=== PATIENT | female | born 1995 | race Caucasian/White ===

== ENCOUNTER 2018-02-22 21:15 | Emergency (ER) | payer SELFPAY ==
[~2018-02-22] VITALS: Ht 167.6 cm; Wt 59.0 kg
[2018-02-22] MEDS ORDERED: DOXY40CP PO (23:33)
[2018-02-22 23:43] LABS: BILIRUBIN,URINE NEGATIVE (NEGATIVE); CLARITY,URINE CLEAR; COLOR,URINE YELLOW; GLUCOSE, URINE (UA) NEGATIVE (NEGATIVE); KETONES,URINE NEGATIVE (NEGATIVE); LEUKOCYTE ESTERASE ,URINE NEGATIVE (NEGATIVE); NITRITE,URINE NEGATIVE (NEGATIVE); PH,URINE 6.5 (5-9); PROTEIN,URINE NEGATIVE (NEGATIVE); UROBILINOGEN,URINE NORMAL (NORMAL)
[2018-02-22 23:58] LABS: BASOPHILS % (AUTO) 0 % (0-10); EOSINOPHILS # (AUTO) 0.1 10^3/uL (0.0-0.3); EOSINOPHILS % (AUTO) 1 % (0-10); HEMATOCRIT 39 % (35-52); LYMPHOCYTES # (AUTO) 3.1 X 10^3 (1.0-4.0); LYMPHOCYTES % (AUTO) 34 % (12-44); MEAN CORPUSCULAR HEMOGLOBIN 29 PG (25-34); MEAN CORPUSCULAR HGB CONC 33 G/DL (32-36); MEAN CORPUSCULAR VOLUME 87 FL (80-99); MEAN PLATELET VOLUME 9.8 FL (7.4-10.4); MONOCYTES # (AUTO) 0.5 X 10^3 (0.0-1.0); MONOCYTES % (AUTO) 6 % (0-12); NEUTROPHILS # (AUTO) 5.2 X 10^3 (1.8-7.8); NEUTROPHILS % (AUTO) 58 % (42-75); PLATELET COUNT 281 10^3/uL (130-400); RED BLOOD COUNT 4.53 10^6/uL (4.35-5.85); RED CELL DISTRIBUTION WIDTH 12.7 % (10.0-14.5)
[2018-02-23 00:06] LABS: BACTERIA,URINE FEW /HPF; SQUAMOUS EPITHELIAL CELL,UR 0-2 /HPF
[2018-02-23 00:20] LABS: ALANINE AMINOTRANSFERASE 13 U/L (0-55); ALBUMIN 4.6 GM/DL (3.2-4.5); ALKALINE PHOSPHATASE 72 U/L (40-136); AMYLASE 51 U/L (25-125); BILIRUBIN,TOTAL 0.3 MG/DL (0.1-1.0); BUN/CREATININE RATIO 20; CALCIUM 9.7 MG/DL (8.5-10.1); CARBON DIOXIDE 21 MMOL/L (21-32); CHLORIDE 110 MMOL/L (98-107); CREATININE SERUM 0.81 MG/DL (0.60-1.30); GFR ESTIMATED > 60; GLUCOSE 92 MG/DL (70-105); LIPASE 28 U/L (8-78); SODIUM 144 MMOL/L (135-145)
[2018-02-23] MEDS ORDERED: LACTATED RINGERS 1,000 ML IV ONE (00:24)
[2018-02-23] MEDS ORDERED: KETOROLAC 30 MG/ML VIAL IVP STA (00:24)
[2018-02-23] MEDS ORDERED: ONDANSETRON 4 MG/2 ML (SDV) Z0FRAN IVP ONE (00:30)
[2018-02-23] MEDS ORDERED: HYOSCYAMINE 0.125 MG (LEVSIN) TAB SL ONE (00:30)
[2018-02-23] MEDS ORDERED: RX-HYOSCYAMINE 0.125 MG SL (LEVSIN) PPK#6 SL STA ×2 (01:38→01:45)
[2018-02-23] MEDS ORDERED: RX-ONDANSETRON 4 MG ODT (ZOFRAN) PPK #4 PO STA ×2 (01:38→01:45)
[2018-02-23] MEDS ORDERED: DICY10CA12 PO (01:44)
[2018-02-23] MEDS ORDERED: HYOS0.1283 SL (01:44)
[2018-02-23] MEDS ORDERED: PANT40TA2 PO (01:44)
[2018-02-23] MEDS ORDERED: ONDA4TAB11 PO (01:44)
--- NOTE | 2018-02-23 01:45 | ED Abdominal Pain ---
General Chief Complaint: Abdominal/GI Problems Stated Complaint: ABD PAIN Nursing Triage Note: mid abdominal pain (burning) x4hrs Sepsis Screen: No Definite Risk Allergies and Home Medications Allergies Coded Allergies: shrimp (Verified Allergy, Unknown, 02/22/18) Past Pfbsdje-Qjdjdh-Fbwmyq Hx Patient Social History Alcohol Use: Denies Use Recreational Drug Use: No Smoking Status: Never a Smoker 2nd Hand Smoke Exposure: No Recent Foreign Travel: No Contact w/Someone Who Travel: No Recent Infectious Disease Expo: No Recent Hopitalizations: No Immunizations Up To Date Tetanus Booster (TDap): Unknown Seasonal Allergies Seasonal Allergies: No Past Medical History Surgeries: Yes Abdominal Respiratory: No Cardiac: No Neurological: No : No Female Reproductive Disorders: Endometriosis Genitourinary: No Gastrointestinal: Yes Abdominal Hernia Musculoskeletal: No Endocrine: No HEENT: No Cancer: No Psychosocial: No Integumentary: No Blood Disorders: No Physical Exam Vital Signs Vital Signs - First Documented 02/22/18 23:27 Temp 98.2 Pulse 71 Resp 16 B/P (MAP) 141/87 (105) Pulse Ox 100 O2 Delivery Room Air Capillary Refill : Less Than 3 Seconds Height/Weight/BMI Height: 5'6.00" Weight: 130lbs. oz. 58.789796zg; BMI Method:Stated Progress/Results/Core Measures Results/Orders Lab Results Laboratory Tests Test 02/22/18 21:23 02/22/18 23:50 Range/Units Urine Color YELLOW Urine Clarity CLEAR Urine pH 6.5 5-9 Urine Specific [place] 1.015 L 1.016-1.022 Urine Protein NEGATIVE NEGATIVE Urine Glucose (UA) NEGATIVE NEGATIVE Urine Ketones NEGATIVE NEGATIVE Urine Nitrite NEGATIVE NEGATIVE Urine Bilirubin NEGATIVE NEGATIVE Urine Urobilinogen NORMAL NORMAL MG/DL Urine Leukocyte Esterase NEGATIVE NEGATIVE Urine RBC (Auto) NEGATIVE NEGATIVE Urine RBC NONE /HPF Urine WBC NONE /HPF Urine Squamous Epithelial Cells 0-2 /HPF Urine Crystals NONE /LPF Urine Bacteria FEW H /HPF Urine Casts NONE /LPF Urine Mucus NEGATIVE /LPF Urine Culture Indicated NO White Blood Count 9.0 4.3-11.0 10^3/uL Red Blood Count 4.53 4.35-5.85 10^6/uL Hemoglobin 13.0 11.5-16.0 G/DL Hematocrit 39 35-52 % Mean Corpuscular Volume 87 80-99 FL Mean Corpuscular Hemoglobin 29 25-34 PG Mean Corpuscular Hemoglobin Concent 33 32-36 G/DL Red Cell Distribution Width 12.7 10.0-14.5 % Platelet Count 281 130-400 10^3/uL Mean Platelet Volume 9.8 7.4-10.4 FL Neutrophils (%) (Auto) 58 42-75 % Lymphocytes (%) (Auto) 34 12-44 % Monocytes (%) (Auto) 6 0-12 % Eosinophils (%) (Auto) 1 0-10 % Basophils (%) (Auto) 0 0-10 % Neutrophils # (Auto) 5.2 1.8-7.8 X 10^3 Lymphocytes # (Auto) 3.1 1.0-4.0 X 10^3 Monocytes # (Auto) 0.5 0.0-1.0 X 10^3 Eosinophils # (Auto) 0.1 0.0-0.3 10^3/uL Basophils # (Auto) 0.0 0.0-0.1 10^3/uL Sodium Level 144 135-145 MMOL/L Potassium Level 4.0 3.6-5.0 MMOL/L Chloride Level 110 H 98-107 MMOL/L Carbon Dioxide Level 21 21-32 MMOL/L Anion Gap 13 5-14 MMOL/L Blood Urea Nitrogen 16 7-18 MG/DL Creatinine 0.81 0.60-1.30 MG/DL Estimat Glomerular Filtration Rate > 60 BUN/Creatinine Ratio 20 Glucose Level 92 70-105 MG/DL Calcium Level 9.7 8.5-10.1 MG/DL Corrected Calcium 8.5-10.1 MG/DL Total Bilirubin 0.3 0.1-1.0 MG/DL Aspartate Amino Transf (AST/SGOT) 15 5-34 U/L Alanine Aminotransferase (ALT/SGPT) 13 0-55 U/L Alkaline Phosphatase 72 40-136 U/L Total Protein 7.0 6.4-8.2 GM/DL Albumin 4.6 H 3.2-4.5 GM/DL Amylase Level 51 25-125 U/L Lipase 28 8-78 U/L My Orders Orders - AIMEE LAGUNA DO Saline Lock/Iv-Start (02/22/18 23:33) Urine Bedside (02/22/18 23:33) Amylase (02/22/18 23:33) Cbc With Automated Diff (02/22/18 23:33) Comprehensive Metabolic Panel (02/22/18 23:33) Lipase (02/22/18 23:33) Ua Culture If Indicated (02/22/18 23:33) Ct Abdomen/Pelvis W (02/23/18 00:23) Acute Abd Series (02/23/18 00:23) Saline Lock/Iv-Start (02/23/18 00:24) Lactated Ringers (Lr 1000 Ml Iv Solution (02/23/18 00:24) Ondansetron Injection (Zofran Injectio (02/23/18 00:30) Hyoscyamine Sl Tablet (Levsin Sl Tablet) (02/23/18 00:30) Ketorolac Injection (Toradol Injection) (02/23/18 00:24) Rx-Hyoscyamine Tab (Rx-Levsin Sl) (02/23/18 01:38) Rx-Ondansetron Po (Rx-Zofran Po) (02/23/18 01:38) Medications Given in ED Current Medications Medications Dose Ordered Sig/Anjali Route Start Time Stop Time Status Last Admin Dose Admin Hyoscyamine Sulfate 0.25 mg ONCE ONCE SL 02/23/18 00:30 02/23/18 00:31 DC 02/23/18 00:29 0.25 MG Lactated Ringer's 1,000 ml @ 0 mls/hr Q0M ONCE IV 02/23/18 00:24 02/23/18 00:25 DC 02/23/18 00:29 0 MLS/HR Ondansetron HCl 4 mg ONCE ONCE IVP 02/23/18 00:30 02/23/18 00:31 DC 02/23/18 00:29 4 MG Vital Signs/I&O 02/22/18 23:27 Temp 98.2 Pulse 71 Resp 16 B/P (MAP) 141/87 (105) Pulse Ox 100 O2 Delivery Room Air Blood Pressure Mean: 105 Urine -Bedside: Negative Departure Impression Primary Impression: abdominal pain Disposition: HOME, SELF-CARE Departure-Patient Inst. Referrals: DEEPALI LAMB APRN (PCP/Family) Primary Care Physician Patient Instructions: Acute Abdomen (Belly Pain), Adult (DC) Add. Discharge Instructions: CLEAR LIQUIDS--WATER, BROTH, JELLO, GATORADE WHEN YOUR PAIN IS BETTER, ADD BRATS DIET TO CLEAR LIQUIDS--BANANAS, RICE, APPLESAUCE, TOAST, SALTINES TAKE MIRALAX EVERY 2-3 HOURS UNTIL YOUR STOOLS ARE CLEAR AND WATERY, THEN TAKE ONCE A DAY FOLLOW UP WITH YOUR DR THIS WEEK FOR FURTHER CARE RETURN TO ER IF WORSE All discharge instructions reviewed with patient and/or family. Voiced understanding. Scripts Dicyclomine HCl (Dicyclomine HCl) 10 Mg Capsule 10 MG PO Q6H for Abdominal Pain, #20 CAP Prov: AIMEE LAGUNA DO 02/23/18 Hyoscyamine Sulfate (Levsin-Sl) 0.125 Mg Tab.subl 1-2 TAB SL Q4H for Abdominal Pain, #15 TAB Prov: AIMEE LAGUNA DO 02/23/18 Ondansetron (Ondansetron Odt) 4 Mg Tab.rapdis 4 MG PO Q4H for Nausea/Vomiting, #10 TAB Prov: AIMEE LAGUNA DO 02/23/18 Pantoprazole Sodium (Protonix) 40 Mg Tablet. 40 MG PO DAILY, #15 TAB Prov: AIMEE LAGUNA DO 02/23/18 AIMEE LAGUNA DO Feb 23, 2018 01:45
[2018-02-23 01:52] VITALS: BP 100/66
[2018-02-23] MEDS ORDERED: NS 100 ML (IVPB) BAG IV ONE (04:30)
[2018-02-23] MEDS ORDERED: IOHEXOL 350 MG/ML 100 ML (OMNIPAQUE 350) VIAL IV ONE (04:30)
--- NOTE | 2018-02-23 07:01 | Diagnostic Imaging Report ---
PROCEDURE: CT abdomen and pelvis with contrast. TECHNIQUE: Multiple contiguous axial images were obtained through the abdomen and pelvis after administration of intravenous contrast. INDICATION: Abdominal pain. FINDINGS: The heart size is normal. Lung bases are clear. The liver is normal in size. There is a focal area of hyperenhancement in the left lobe of the liver likely hemangioma. There is no biliary ductal dilatation. Gallbladder is unremarkable. Spleen is normal. The pancreas, adrenal glands and kidneys are unremarkable. The aorta is nonaneurysmal. Bowel gas pattern is nonspecific. There is no free air. There is no ascites. No focal inflammatory changes. The bladder is unremarkable. There is no pelvic mass, adenopathy or free fluid. The osseous structures are unremarkable. IMPRESSION: Focal area of hyperenhancement and flash filling in the left lobe of the liver compatible with hemangioma. No other acute abnormality in the abdomen or pelvis. Dictated by: Dictated on workstation # [id number]
--- NOTE | 2018-02-23 07:39 | Diagnostic Imaging Report ---
INDICATION: Abdominal pain FINDINGS: The heart size is normal. Lungs are clear. There is no pleural effusion or pneumothorax. Bowel gas pattern is nonspecific. There is no free air. There are no abnormal abdominal calcifications. IMPRESSION: No acute cardiopulmonary abnormality Nonspecific bowel gas pattern Dictated by: Dictated on workstation # [id number]
== END 2018-02-23 01:53 | disposition home or self-care (01) ==
LOC: ER 21:17
DX: R10.9 Unspecified abdominal pain (principal); Z87.448 Personal history of other diseases of urinary system; Z87.19 Personal history of other diseases of the digestive system
CPT/HCPCS: 36415; 74022; 74177; 80053; 81000; 82150; 83690; 84703; 85025

== ENCOUNTER 2019-02-25 11:00 | Emergency (ER) | payer SELFPAY ==
[~2019-02-25] VITALS: Ht 167.7 cm; Wt 56.8 kg
[~2019-02-25 11:00] MED LIST: DICY10CA12 PO; DOXY40CP PO; HYOS0.1283 SL; ONDA4TAB11 PO; PANT40TA2 PO
--- NOTE | 2019-02-25 12:08 | ED Abdominal Pain ---
General Stated Complaint: 5 WKS PREG - CRAMPING / BLEEDING Source of Information: Patient, Family Exam Limitations: No Limitations History of Present Illness Date Seen by Provider: Feb 25, 2019 Time Seen by Provider: 12:04 Initial Comments This 23-year-old female presents with vaginal bleeding and cramping right lower quadrant pain. The patient has had a miscarriage approximately 6 weeks ago. The patient had a quantitative hCG done on which she states was 34 done at [facility]. Patient denies associated dysuria, frequency, flank pain, passing tissue, nausea, vomiting, diarrhea, shortness of breath or chest pain, headache stiff neck or photophobia. Allergies and Home Medications Allergies Coded Allergies: shrimp (Verified Allergy, Unknown, 02/22/18) Home Medications Dicyclomine HCl 10 Mg Capsule, 10 MG PO Q6H Prescribed by: AIMEE LAGUNA on 02/23/18 0144 Hydrocodone/Acetaminophen 1 Each Tablet, 1-2 EACH PO Q6H PRN for PAIN-MODERATE Prescribed by: KAELYN GARZA MD on 02/25/19 1344 Hyoscyamine Sulfate 0.125 Mg Tab.subl, 1-2 TAB SL Q4H Prescribed by: AIMEE LAGUNA on 02/23/18 0144 Ondansetron 4 Mg Tab.rapdis, 4 MG PO Q4H Prescribed by: AIMEE LAGUNA on 02/23/18 0144 Ondansetron 4 Mg Tab.rapdis, 4 MG PO Q4H Prescribed by: KAELYN GARZA MD on 02/25/19 1344 Pantoprazole Sodium 40 Mg Tablet.dr, 40 MG PO DAILY Prescribed by: AIMEE LAGUNA on 02/23/18 014 Patient Home Medication List Home Medication List Reviewed: Yes Review of Systems Review of Systems Constitutional: no symptoms reported; No chills, No fever EENTM: No Symptoms Reported Respiratory: No Symptoms Reported; Denies Cough Cardiovascular: No Symptoms Reported; Denies Chest Pain Gastrointestinal: See HPI, Abdominal Pain; Denies Nausea (right lower quadrant), Denies Vomiting Genitourinary: See HPI, Other (vaginal bleeding) Musculoskeletal: no symptoms reported Skin: no symptoms reported Psychiatric/Neurological: No Symptoms Reported Endocrine: No Symptoms Reported Hematologic/Lymphatic: No Symptoms Reported Past Hgpkwgv-Vuflmb-Niwufh Hx Past Med/Social Hx: Reviewed Nursing Past Med/Soc Hx Patient Social History 2nd Hand Smoke Exposure: No Recent Foreign Travel: No Contact w/Someone Who Travel: No Recent Hopitalizations: No Immunizations Up To Date Tetanus Booster (TDap): Unknown Seasonal Allergies Seasonal Allergies: No Past Medical History Surgeries: Yes Abdominal Respiratory: No Cardiac: No Neurological: No Female Reproductive Disorders: Endometriosis Genitourinary: No Gastrointestinal: Yes Abdominal Hernia Musculoskeletal: No Endocrine: No HEENT: No Cancer: No Psychosocial: No Integumentary: No Blood Disorders: No Physical Exam Vital Signs Vital Signs - First Documented 02/25/19 11:55 Temp 37.0 Pulse 75 Resp 20 B/P (MAP) 124/88 (100) Pulse Ox 100 O2 Delivery Room Air Capillary Refill : Height/Weight/BMI Height: 5'6.00" Weight: 130lbs. oz. 58.710215nv; BMI Method:Stated General Appearance: WD/WN, mild distress HEENT: normal ENT inspection Neck: normal inspection Respiratory: normal breath sounds Cardiovascular: regular rate, rhythm Gastrointestinal: normal bowel sounds, tenderness (right lower quadrant) Extremities: normal range of motion Back: normal inspection Neurologic/Psychiatric: no motor/sensory deficits, alert Skin: normal color, warm/dry Progress/Results/Core Measures Results/Orders Lab Results Laboratory Tests Test 02/25/19 12:05 02/25/19 12:09 Range/Units White Blood Count 8.9 4.3-11.0 10^3/uL Red Blood Count 4.47 4.35-5.85 10^6/uL Hemoglobin 13.1 11.5-16.0 G/DL Hematocrit 40 35-52 % Mean Corpuscular Volume 89 80-99 FL Mean Corpuscular Hemoglobin 29 25-34 PG Mean Corpuscular Hemoglobin Concent 33 32-36 G/DL Red Cell Distribution Width 13.6 10.0-14.5 % Platelet Count 319 130-400 10^3/uL Mean Platelet Volume 9.4 7.4-10.4 FL Neutrophils (%) (Auto) 73 42-75 % Lymphocytes (%) (Auto) 21 12-44 % Monocytes (%) (Auto) 6 0-12 % Eosinophils (%) (Auto) 0 0-10 % Basophils (%) (Auto) 0 0-10 % Neutrophils # (Auto) 6.5 1.8-7.8 X 10^3 Lymphocytes # (Auto) 1.8 1.0-4.0 X 10^3 Monocytes # (Auto) 0.5 0.0-1.0 X 10^3 Eosinophils # (Auto) 0.0 0.0-0.3 10^3/uL Basophils # (Auto) 0.0 0.0-0.1 10^3/uL Sodium Level 141 135-145 MMOL/L Potassium Level 3.9 3.6-5.0 MMOL/L Chloride Level 110 H 98-107 MMOL/L Carbon Dioxide Level 20 L 21-32 MMOL/L Anion Gap 11 5-14 MMOL/L Blood Urea Nitrogen 14 7-18 MG/DL Creatinine 0.71 0.60-1.30 MG/DL Estimat Glomerular Filtration Rate > 60 BUN/Creatinine Ratio 20 Glucose Level 100 70-105 MG/DL Calcium Level 9.3 8.5-10.1 MG/DL Corrected Calcium 8.5-10.1 MG/DL Total Bilirubin 0.2 0.1-1.0 MG/DL Aspartate Amino Transf (AST/SGOT) 14 5-34 U/L Alanine Aminotransferase (ALT/SGPT) 15 0-55 U/L Alkaline Phosphatase 54 40-136 U/L Total Protein 7.1 6.4-8.2 GM/DL Albumin 4.8 H 3.2-4.5 GM/DL Human Chorionic Gonadotropin, Quant 12 H <5 MIU/ML Urine Color YELLOW Urine Clarity CLEAR Urine pH 7.0 5-9 Urine Specific [place] 1.020 1.016-1.022 Urine Protein NEGATIVE NEGATIVE Urine Glucose (UA) NEGATIVE NEGATIVE Urine Ketones NEGATIVE NEGATIVE Urine Nitrite NEGATIVE NEGATIVE Urine Bilirubin NEGATIVE NEGATIVE Urine Urobilinogen 0.2 < = 1.0 MG/DL Urine Leukocyte Esterase TRACE NEGATIVE Urine RBC (Auto) NEGATIVE NEGATIVE Urine RBC NONE /HPF Urine WBC NONE /HPF Urine Squamous Epithelial Cells 2-5 /HPF Urine Crystals NONE /LPF Urine Bacteria NEGATIVE /HPF Urine Casts NONE /LPF Urine Mucus NEGATIVE /LPF Urine Culture Indicated NO My Orders Orders - KAELYN GARZA MD Cbc With Automated Diff (02/25/19 12:01) Hcg,Quantitative (02/25/19 12:01) Abo Rh Type (02/25/19 12:01) Ed Iv/Invasive Line Start (02/25/19 12:01) Comprehensive Metabolic Panel (02/25/19 12:01) Ua Culture If Indicated (02/25/19 12:01) Hydrocodone/Apap 5/325 Tablet (Lortab 5 (02/25/19 12:45) Diphenhydramine Tablet (Benadryl Tablet) (02/25/19 12:45) Ondansetron Oral Dissolve Tab (Zofran (02/25/19 12:45) Ondansetron Injection (Zofran Injectio (02/25/19 13:04) Fentanyl Injection (Sublimaze Injection (02/25/19 13:45) Medications Given in ED Current Medications Medications Dose Ordered Sig/Anjali Route Start Time Stop Time Status Last Admin Dose Admin Acetaminophen/ Hydrocodone Bitart 2 tab ONCE ONCE PO 02/25/19 12:45 02/25/19 12:46 DC 02/25/19 13:11 2 TAB Diphenhydramine HCl 25 mg ONCE ONCE PO 02/25/19 12:45 02/25/19 12:46 DC 02/25/19 13:11 25 MG Ondansetron HCl 4 mg STK-MED ONCE .ROUTE 02/25/19 13:04 02/25/19 13:07 DC 02/25/19 13:10 4 MG Vital Signs/I&O 02/25/19 11:55 Temp 37.0 Pulse 75 Resp 20 B/P (MAP) 124/88 (100) Pulse Ox 100 O2 Delivery Room Air Progress Progress Note : Time: 12:35 Progress Note The patient's vaginal exam demonstrated a small amount of bleeding from the os. The os was closed. No tissue is noted. Bimanual exam was unremarkable. There was no significant tenderness on examination of the uterus or right or left adnexa. The patient was nauseated and requested Zofran. She was also in significant discomfort. I discussed treatment options with the patient and she understands Zofran in the first trimester is not recommended. She also understands that hydrocodone needs to use in a limited fashion and the patient has itching when she takes hydrocodone. I ordered Benadryl, hydrocodone, and Zofran for the patient. The patient's quantitative hCG was now 16. It had been 32. I discussed the findings with patient and her family. I recommended they follow up with their doctor on Wednesday. I dispensed hydrocodone and Zofran for the patient's discomfort and nausea. Departure Impression Primary Impression: Threatened miscarriage in early Disposition: HOME, SELF-CARE Condition: Unchanged Departure-Patient Inst. Decision time for Depature: 13:40 Referrals: NO,LOCAL PHYSICIAN (PCP) Primary Care Physician BETZY ZAYAS DO Patient Instructions: Threatened Miscarriage Add. Discharge Instructions: Follow-up Dr. Monroe on Wednesday. Vicodin and Zofran for pain. Return if any problems or questions. Scripts Ondansetron (Ondansetron Odt) 4 Mg Tab.rapdis 4 MG PO Q4H for Nausea/Vomiting, #20 TAB Prov: KAELYN GARZA MD 02/25/19 Hydrocodone/Acetaminophen (Vicodin 5-300 mg Tablet) 1 Each Tablet 1-2 EACH PO Q6H PRN for PAIN-MODERATE MDD 10 for 7 Days, #20 TAB Prov: KAELYN GARZA MD 02/25/19 KAELYN GARZA MD Feb 25, 2019 12:07
[2019-02-25 12:13] LABS: BASOPHILS % (AUTO) 0 % (0-10); EOSINOPHILS % (AUTO) 0 % (0-10); HEMATOCRIT 40 % (35-52); HEMOGLOBIN 13.1 G/DL (11.5-16.0); LYMPHOCYTES # (AUTO) 1.8 X 10^3 (1.0-4.0); LYMPHOCYTES % (AUTO) 21 % (12-44); MEAN CORPUSCULAR HEMOGLOBIN 29 PG (25-34); MEAN CORPUSCULAR HGB CONC 33 G/DL (32-36); MEAN CORPUSCULAR VOLUME 89 FL (80-99); MEAN PLATELET VOLUME 9.4 FL (7.4-10.4); MONOCYTES # (AUTO) 0.5 X 10^3 (0.0-1.0); MONOCYTES % (AUTO) 6 % (0-12); NEUTROPHILS # (AUTO) 6.5 X 10^3 (1.8-7.8); NEUTROPHILS % (AUTO) 73 % (42-75); PLATELET COUNT 319 10^3/uL (130-400); RED CELL DISTRIBUTION WIDTH 13.6 % (10.0-14.5); WHITE BLOOD COUNT 8.9 10^3/uL (4.3-11.0)
[2019-02-25 12:17] LABS: BILIRUBIN,URINE NEGATIVE (NEGATIVE); CLARITY,URINE CLEAR; COLOR,URINE YELLOW; GLUCOSE, URINE (UA) NEGATIVE (NEGATIVE); KETONES,URINE NEGATIVE (NEGATIVE); LEUKOCYTE ESTERASE ,URINE TRACE (NEGATIVE); NITRITE,URINE NEGATIVE (NEGATIVE); PROTEIN,URINE NEGATIVE (NEGATIVE)
[2019-02-25 12:23] LABS: BACTERIA,URINE NEGATIVE /HPF
[2019-02-25 12:33] LABS: ALANINE AMINOTRANSFERASE 15 U/L (0-55); ALBUMIN 4.8 GM/DL (3.2-4.5); ALKALINE PHOSPHATASE 54 U/L (40-136); BILIRUBIN,TOTAL 0.2 MG/DL (0.1-1.0); BUN/CREATININE RATIO 20; CALCIUM 9.3 MG/DL (8.5-10.1); CARBON DIOXIDE 20 MMOL/L (21-32); CHLORIDE 110 MMOL/L (98-107); CREATININE SERUM 0.71 MG/DL (0.60-1.30); GFR ESTIMATED > 60; GLUCOSE 100 MG/DL (70-105); POTASSIUM 3.9 MMOL/L (3.6-5.0); SODIUM 141 MMOL/L (135-145); TOTAL PROTEIN 7.1 GM/DL (6.4-8.2)
[2019-02-25] MEDS ORDERED: diphenhydrAMINE 25 MG TAB (BENADRYL) PO ONE (12:45)
[2019-02-25] MEDS ORDERED: HYDROcodone/APAP 5 MG/325 MG (LORTAB) TAB PO ONE (12:45)
[2019-02-25] MEDS ORDERED: ONDANSETRON 4 MG (ZOFRAN) ORAL DISSOLVE TAB PO ONE (12:45)
[2019-02-25] MEDS ORDERED: ONDANSETRON 4 MG/2 ML (SDV) Z0FRAN ONE (13:04)
[2019-02-25] MEDS ORDERED: HYDR-3455 PO (13:44)
[2019-02-25] MEDS ORDERED: ONDA4TAB11 PO (13:44)
[2019-02-25] MEDS ORDERED: fentaNYL INJECTION 100 MCG/2 ML AMP IVP ONE (13:45)
[2019-02-25] MEDS ORDERED: HYDROmorphone 2 MG/ML VIAL (DILAUDID) IV ONE (14:30)
[2019-02-25] MEDS ORDERED: NS IV 1000 ML 1,000 ML IV SCH (14:30)
--- NOTE | 2019-02-25 15:20 | Diagnostic Imaging Report ---
PROCEDURE: CT abdomen and pelvis without contrast. TECHNIQUE: Multiple contiguous axial images were obtained through the abdomen and pelvis without the use of intravenous contrast. Auto Exposure Controls were utilized during the CT exam to meet ALARA standards for radiation dose reduction. INDICATION: Abdominal pain. COMPARISON: February 23, 2018 FINDINGS: The liver is unremarkable. The visualized lung bases are clear. The unenhanced spleen is unremarkable. The adrenal glands are unremarkable. The unenhanced pancreas is unremarkable. The unenhanced gallbladder is unremarkable. The bilateral kidneys are unremarkable. No aneurysmal dilatation of the abdominal aorta. The urinary bladder is decompressed, therefore not well evaluated. The uterus and adnexal structures are unremarkable for age. No bowel obstruction or pneumatosis. No evidence of acute appendicitis. No significant adenopathy, free air, or free fluid within the abdomen or pelvis. No acute osseous abnormality. IMPRESSION: Similar-appearing examination without acute abnormality. Given provided history of ectopic , if there is concern for underlying ectopic , pelvic ultrasound would be recommended. Dictated by: Dictated on workstation # [id number]
[2019-02-25] MEDS ORDERED: methylPREDNISolone 125 MG (Solu-MEDROL) VIAL ONE (15:38)
[2019-02-25 16:04] VITALS: BP 110/67
== END 2019-02-25 16:04 | disposition home or self-care (01) ==
LOC: EDUNIT# 11:00 → ER 11:02
DX: O20.0 Threatened abortion (principal); Z91.018 Allergy to other foods; Z3A.01 Less than 8 weeks gestation of pregnancy
CPT/HCPCS: 36415; 74176; 80053; 81000; 84702; 85025; 86850; 86900; 86901; 96361; 96374; 96375

== ENCOUNTER 2019-10-31 05:49 | Outpatient (CLI) | payer OTHER ==
[~2019-10-31] VITALS: Ht 167 cm; Wt 56.3 kg
[~2019-10-31 05:49] MED LIST changes: +HYDR-3455 PO
[2019-10-31] MEDS ORDERED: RT-ALBUINH IH (12:43)
[2019-10-31] MEDS ORDERED: MONT10TA26 PO (12:43)
[2019-10-31] MEDS ORDERED: MOME13HF IH (12:43)
[2019-10-31] MEDS ORDERED: ESCI10TA PO (12:43)
[2019-10-31] MEDS ORDERED: ELAG200T PO (12:43)
[2019-10-31] MEDS ORDERED: LORA-404 PO (12:43)
[2019-10-31] MEDS ORDERED: UBRO50TA PO (12:45)
== END 2019-10-31 16:04 | disposition home or self-care (01) ==
LOC: PREOP 05:49
PROVIDERS: ATTEND Obstetrics & Gynecology
DX: Z01.818 Encounter for other preprocedural examination (principal)

== ENCOUNTER 2019-11-06 10:32 | Day surgery (SDC) | payer OTHER ==
[2019-11-06] VITALS (11 sets, daily range): BP systolic 103–149; BP diastolic 61–92
[~2019-11-06] VITALS: Ht 167 cm; Wt 56.3 kg
[~2019-11-06 10:32] MED LIST changes: +ELAG200T PO; +ESCI10TA PO; +LORA-404 PO; +MOME13HF IH; +MONT10TA26 PO; +RT-ALBUINH IH; +UBRO50TA PO
[2019-11-06] MEDS ORDERED: fentaNYL INJECTION 100 MCG/2 ML AMP ONE (10:48)
[2019-11-06] MEDS ORDERED: NEOSTIGMINE 3 MG/3 ML VIAL ONE ×2 (10:48→12:16)
[2019-11-06] MEDS ORDERED: LIDOCAINE PF 2% 5 ML (XYLOCAINE) VIAL ONE (10:48)
[2019-11-06] MEDS ORDERED: proPOfol 200 MG/20 ML (DIPRIVAN) VIAL IV ONE (10:48)
[2019-11-06] MEDS ORDERED: ROCURONIUM 10 MG/ML 5 ML SYRINGE IV ONE (10:48)
[2019-11-06] MEDS ORDERED: SEVOFLURANE (ULTANE) 15 ML INHAL SOLN ONE (10:48)
[2019-11-06] MEDS ORDERED: ONDANSETRON 4 MG/2 ML (SDV) Z0FRAN ONE ×2 (10:48→12:37)
[2019-11-06] MEDS ORDERED: GLYCOPYRROLATE 0.2 MG/ML (ROBINUL) 2 ML VIAL ONE ×2 (10:48→12:16)
[2019-11-06] MEDS ORDERED: MIDAZOLAM 2 MG/2 ML (VERSED) VIAL ONE (10:48)
[2019-11-06] MEDS ORDERED: BUPIVACAINE 0.5% 30 ML (SENSORCAINE) VIAL ONE (10:52)
[2019-11-06] MEDS: LACTATED RINGERS 1,000 ML IV PRN ×2 (10:58→13:07)
[2019-11-06] MEDS ORDERED: LACTATED RINGERS 1,000 ML IV PRN (11:03)
[2019-11-06 11:11] LABS: BASOPHILS % (AUTO) 0 % (0-10); EOSINOPHILS # (AUTO) 0.1 10^3/uL (0.0-0.3); EOSINOPHILS % (AUTO) 1 % (0-10); HEMATOCRIT 40 % (35-52); HEMOGLOBIN 13.2 G/DL (11.5-16.0); LYMPHOCYTES # (AUTO) 1.6 X 10^3 (1.0-4.0); LYMPHOCYTES % (AUTO) 35 % (12-44); MEAN CORPUSCULAR HEMOGLOBIN 29 PG (25-34); MEAN CORPUSCULAR HGB CONC 33 G/DL (32-36); MEAN CORPUSCULAR VOLUME 87 FL (80-99); MEAN PLATELET VOLUME 9.3 FL (7.4-10.4); MONOCYTES # (AUTO) 0.3 X 10^3 (0.0-1.0); MONOCYTES % (AUTO) 7 % (0-12); NEUTROPHILS # (AUTO) 2.7 X 10^3 (1.8-7.8); NEUTROPHILS % (AUTO) 57 % (42-75); PLATELET COUNT 234 10^3/uL (130-400); WHITE BLOOD COUNT 4.7 10^3/uL (4.3-11.0)
[2019-11-06] MEDS ORDERED: MIDAZOLAM 2 MG/2 ML (VERSED) VIAL IV ONE ×2 (11:15→13:45)
--- NOTE | 2019-11-06 11:43 | History & Physical-OB/GYN ---
History of Present Illness History of Present Illness Reason for visit/HPI Scheduled surgery, Diagnostic/Operative Laparoscopy secondary to pelvic pain and history of Endometriosis Date of Admission November 06, 2019 Date Seen by a Provider: Nov 06, 2019 Time Seen by a Provider: 11:30 I consulted on this patient on 11/06/19 11:38 Attending Physician Anthony Solis DO Admitting Physician Anthony Solis DO Consult Allergies and Home Medications Allergies Coded Allergies: shrimp (Verified Allergy, Unknown, 10/31/19) Home Medications Albuterol Sulfate 1 Puff Puff, 2 PUFF IH Q4H PRN for SHORTNESS OF BREATH, (Reported) 1 PUFF = 90 MCG Elagolix Sodium 200 Mg Tablet, 200 MG PO BID, (Reported) Escitalopram Oxalate 10 Mg Tablet, 10 MG PO DAILY, (Reported) Lorazepam 0.5 Mg Tablet, 0.5 MG PO PRN, (Reported) Mometasone/Formoterol 13 Gm Hfa.aer.ad, 13 GM IH DAILY, (Reported) Montelukast Sodium 10 Mg Tablet, 10 MG PO HS, (Reported) Ubrogepant 50 Mg Tablet, 50 MG PO PRN PRN for HEADACHES, (Reported) Patient Home Medication List Home Medication List Reviewed: Yes Past Olsmuxm-Aknmxt-Sulyrn Hx Patient Social History Marrital Status: single Number of Children: 0 Number of living children: 0 Employed/Student: employed Alcohol Use: Occasionally Uses Recreational Drug Use: No Smoking Status: Never a Smoker 2nd Hand Smoke Exposure: No Recent Foreign Travel: No Contact w/other who traveled: No Recent Hopitalizations: No Immunizations Up To Date Tetanus Booster (TDap): Unknown Pediatric: No Seasonal Allergies Seasonal Allergies: Yes Surgeries Yes (HERNIA X3, LAPAROSCOPY (ENDOMETRIOSIS) X2) Abdominal Respiratory Yes Cardiovascular No Neurological Yes Headaches /Migraines Reproductive System : No Sexually Transmitted Disease: No HIV/AIDS: No Female Reproductive Disorders: Endometriosis Genitourinary No (INTERSTITIAL CYSTITIS) Gastrointestinal Yes Abdominal Hernia Musculoskeletal Yes (R KNEE TORN MCL) Endocrine History of Endocrine Disorders: No HEENT History of HEENT Disorders: Yes (GLASSES/CONTACTS) Loss of Vision: Denies Hearing Impairment: Denies Cancer No Psychosocial History of Psychiatric Problem: Yes Behavioral Health Disorders: Anxiety Integumentary History of Skin or Integumenta: No Blood Transfusions History of Blood Disorders: No Adverse Reaction to a Blood Tr: No (N/A) Review of Systems Constitutional: see HPI Physical Exam Physical Exam Vital Signs Vital Signs Date Time Temp Pulse Resp B/P (MAP) Pulse Ox O2 Delivery O2 Flow Rate FiO2 11/06/19 10:50 36.3 71 16 125/81 (96) 98 Room Air Capillary Refill : Labs Laboratory Tests 11/06/19 10:58: White Blood Count 4.7, Red Blood Count 4.57, Hemoglobin 13.2, Hematocrit 40, Mean Corpuscular Volume 87, Mean Corpuscular Hemoglobin 29, Mean Corpuscular Hemoglobin Concent 33, Red Cell Distribution Width 13.5, Platelet Count 234, Mean Platelet Volume 9.3, Neutrophils (%) (Auto) 57, Lymphocytes (%) (Auto) 35, Monocytes (%) (Auto) 7, Eosinophils (%) (Auto) 1, Basophils (%) (Auto) 0, Neutrophils # (Auto) 2.7, Lymphocytes # (Auto) 1.6, Monocytes # (Auto) 0.3, Eosinophils # (Auto) 0.1, Basophils # (Auto) 0.0 General Appearance: No Apparent Distress, WD/WN Respiratory: Chest Non Tender, Lungs Clear, Normal Breath Sounds Cardiovascular: Regular Rate, Rhythm, No Murmur Abdominal: normal bowel sounds, non tender, soft Gynecology/General: Other (Deferred to Operating Room where an examination under anesthesia will be performed) Extremity: Normal Inspection, Non Tender, No Calf Tenderness Assessment/Plan Assessment and Plan Assessment: Pelvic Pain 2. Endometriosis Plan: Ms. Avalos is scheduled for a Diagnostic/Operative Laparoscopy. The procedure and its associated risks were reviewed. All questions were answered. Admission Diagnosis Admission Status: Observation ANTHONY SOLIS DO Nov 06, 2019 11:43
[2019-11-06] MEDS ORDERED: D5 LR IV SOLUTION 1,000 ML IV SCH (12:25)
[2019-11-06] MEDS ORDERED: oxyCODONE/APAP 5/325MG (PERCOCET 5) TABLET PO PRN (12:30)
[2019-11-06] MEDS ORDERED: ONDANSETRON 4 MG/2 ML (SDV) Z0FRAN IVP PRN ×2 (12:30→12:45)
[2019-11-06] MEDS ORDERED: fentaNYL INJECTION 100 MCG/2 ML AMP IVP PRN (12:30)
[2019-11-06] MEDS ORDERED: KETOROLAC 30 MG/ML VIAL IVP ONE (12:30)
[2019-11-06] MEDS ORDERED: morphine INJ 10 MG/ML 1ML (SYR OR VIAL) ONE (12:37)
--- NOTE | 2019-11-06 12:42 | Operative Report ---
Operative Report Date of Procedure/Surgery Nov 06, 2019 Surgeon (s) BETZY ZAYAS DO [employer] Be[employer] Cattle Farmer (s): None Post-Operative Diagnosis Pelvic Pain 2. Endometriosis Procedure Performed Operative Laparoscopy with Fulgaration of Endometrial Implants on both ovaries Description of Procedure Anesthesia Type: General Estimated blood loss (mL): Minimal Specimen(s) collected/removed None Description of the Procedure Ms. Avalos was taken to the Operating Room with IV fluids running. Once in the OR, general anesthesia was administered without complications. A timeout was performed to confirm the procedure. She was placed in the dorsal lithotomy position then prepped and draped in the normal sterile fashion. A Storm Catheter was inserted. A sponge stick was placed in the vaginal vault to manipulate the uterus. Gloves were changes and attention was turned to the abdomen. Just below the umbilicus, in the midline, was injected with 2 ml of local anesthesia. A stab incision was made in the same area. A Verees needle was inserted and connected to gas. Once pneumoperitoneum was accumulated, a 5 mm trocar and sleeve was inserted. Placement was confirmed by laparoscope. A second 5 mm trocar and sleeve was inserted 4 cm above the pubic symphysis in the midline under direct visualization. The pelvis was examined--it was noted that both ovaries had what appeared to be endometrial implants on the superior aspect--these implants were fulgarated. After completion, all instruments were removed from the pelvic and abdominal cavity. The gas was allowed to escape. Each incision was approximated with 4-0 Vicryl. Then, each incision was injected with 2 ml of local anesthesia. Sterile band-aids were applied to each. Sponge, instruments, and needle counts were correct x 3. Ms. Avalos was taken to the Recovery Room in good and stable condition. The Storm catheter was removed prior to going to the Recovery Room. Findings of the Procedure Multiple endometrial implants on the superior aspect of both ovaries. Allergies and Home Medications Allergies Coded Allergies: shrimp (Verified Allergy, Unknown, 10/31/19) Home Medications Albuterol Sulfate 1 Puff Puff, 2 PUFF IH Q4H PRN for SHORTNESS OF BREATH, (Reported) 1 PUFF = 90 MCG Elagolix Sodium 200 Mg Tablet, 200 MG PO BID, (Reported) Escitalopram Oxalate 10 Mg Tablet, 10 MG PO DAILY, (Reported) Lorazepam 0.5 Mg Tablet, 0.5 MG PO PRN, (Reported) Mometasone/Formoterol 13 Gm Hfa.aer.ad, 13 GM IH DAILY, (Reported) Montelukast Sodium 10 Mg Tablet, 10 MG PO HS, (Reported) Ubrogepant 50 Mg Tablet, 50 MG PO PRN PRN for HEADACHES, (Reported) Patient Home Medication List Home Medication List Reviewed: Yes BETZY ZAYAS DO Nov 06, 2019 12:42
[2019-11-06] MEDS ORDERED: fentaNYL INJECTION 100 MCG/2 ML AMP IVP ONE (12:45)
[2019-11-06] MEDS ORDERED: morphine INJ 10 MG/ML 1ML (SYR OR VIAL) IVP ONE (12:45)
[2019-11-06] MEDS ORDERED: MEPERIDINE (DEMEROL) INJ 50 MG/ML IVP ONE (12:45)
[2019-11-06] MEDS ORDERED: OXYC1TAB87 PO (12:47)
[2019-11-06] MEDS ORDERED: IBUP-1780 PO (12:47)
[2019-11-06] MEDS ORDERED: KETOROLAC 30 MG/ML VIAL ONE (12:47)
[2019-11-06] MEDS ORDERED: MEPERIDINE (DEMEROL) INJ 50 MG/ML ONE (12:52)
[2019-11-06] MEDS: diphenhydrAMINE 50 MG/ML INJ (BENADRYL) ONE ×2 (13:10→13:12)
--- NOTE | 2019-11-06 13:37 | Anesthesia-General Post-Op ---
General Patient Condition Mental Status/LOC: Same as Preop Cardiovascular: Satisfactory Nausea/Vomiting: Absent Respiratory: Satisfactory Pain: Controlled Complications: Absent Post Op Complications Complications None Follow Up Care/Instructions Patient Instructions None needed. Anesthesia/Patient Condition Patient Condition Patient is doing well, no complaints, stable vital signs, no apparent adverse anesthesia problems. No complications reported per nursing. SEAMUS DAVIS CRNA Nov 06, 2019 13:37
[2019-11-06] MEDS ORDERED: PROMETHAZINE INJ 25 MG/ML (PHENERGAN) AMP IVP ONE (13:45)
[2019-11-06] MEDS ORDERED: diphenhydrAMINE 50 MG/ML INJ (BENADRYL) IVP ONE (14:00)
[2019-11-06] MEDS ORDERED: oxyCODONE/APAP 5/325MG (PERCOCET 5) TABLET ONE (14:21)
[2019-11-06] MEDS ORDERED: IBUPROFEN 800 MG (MOTRIN) TAB PO SCH (18:00)
== END 2019-11-06 14:35 | disposition home or self-care (01) ==
LOC: SDC 10:32
PROVIDERS: ATTEND Obstetrics & Gynecology
DX: N80.9 Endometriosis, unspecified (principal); G43.909 Migraine, unspecified, not intractable, without status migrainosus; J45.909 Unspecified asthma, uncomplicated; Z79.899 Other long term (current) drug therapy; Z91.013 Allergy to seafood; Z83.3 Family history of diabetes mellitus; Z82.49 Family history of ischemic heart disease and other diseases of the circulatory system
CPT/HCPCS: 36415; 84703; 85025; 86850; 86900; 86901; 87081

== ENCOUNTER 2020-06-24 08:13 | Emergency (ER) | payer SELFPAY ==
[~2020-06-24] VITALS: Ht 167 cm; Wt 65.7 kg
[~2020-06-24 08:13] MED LIST changes: +IBUP-1780 PO; -MONT10TA26 PO; +MONT10TA32 PO; +OXYC1TAB87 PO
[2020-06-24] MEDS ORDERED: KETOROLAC 30 MG/ML VIAL IVP ONE (08:30)
[2020-06-24] MEDS ORDERED: ONDANSETRON 4 MG/2 ML (SDV) Z0FRAN IVP ONE (08:30)
[2020-06-24] MEDS ORDERED: LACTATED RINGERS 1,000 ML IV ONE (08:30)
[2020-06-24] MEDS ORDERED: LORAZEPAM (08:31)
[2020-06-24] MEDS ORDERED: HYDR-700 (08:31)
[2020-06-24] MEDS ORDERED: PROM25TA14 (08:31)
[2020-06-24] MEDS ORDERED: NORE0.3520 (08:31)
--- NOTE | 2020-06-24 08:36 | ED GU-Female ---
General Chief Complaint: - Urinary Stated Complaint: DIFFICULTY URINATING, PELVIC/BACK PAIN Nursing Triage Note: ARRIVED VIA AMB TO ROOM 05. COMPLAINS OF LOWR BACK PAIN AND NOT BEING ABLE TO PEE. Nursing Sepsis Screen: No Definite Risk Source: patient, other Exam Limitations: no limitations History of Present Illness Date Seen by Provider: June 24, 2020 Time Seen by Provider: 08:20 Initial Comments Patient presents ER by private conveyance with chief complaint that since Wednesday she is been having some low right pelvic and back pain radiating around to the front of her pelvis. She says the pain is constant and is about an 8 out of 10 presently. Has been using Tylenol, ibuprofen, muscle relaxants, hydrocodone and Ativan with no significant relief of pain. She denies a history of kidney stones but says she has a significant history of endometriosis with having had 3 laparoscopic surgeries as well as a couple of hernia repairs. She is having problems with bowel movements. She says she was unable to urinate this morning despite trying. She has a history of interstitial cystitis. She is known to Dr. Bingham and formerly [facility] for primary care. She is havi ng some nausea and did vomit yesterday. She has not had any NSAIDs or Tylenol today. She is had no fever. Last menstrual period was 1 month ago on 23 May. Allergies and Home Medications Allergies Coded Allergies: shrimp (Verified Allergy, Unknown, 10/31/19) Home Medications Hydrocodone/Acetaminophen 1 Each Tablet, 1 TAB PO Q6H PRN for PAIN-MODERATE (5- 7) Prescribed by: AUTUMN WOLF on 06/24/20 1225 Ondansetron 4 Mg Tab.rapdis, 4 MG PO Q6H PRN for NAUSEA/VOMITING Prescribed by: AUTUMN WOLF on 06/24/20 1224 Tamsulosin HCl 0.4 Mg Cap, 0.4 MG PO DAILY Prescribed by: AUTUMN WOLF on 06/24/20 1224 Patient Home Medication List Home Medication List Reviewed: Yes Review of Systems Review of Systems Constitutional: No chills, No diaphoresis EENTM: No ear discharge, No ear pain Respiratory: No cough, No short of breath Cardiovascular: No chest pain, No palpitations Gastrointestinal: abdominal pain; No constipation; nausea, vomiting Musculoskeletal: No back pain, No joint pain Psychiatric/Neurological: Denies Anxiety, Denies Depressed All Other Systemes Reviewed Negative Unless Noted: Yes Past Ovsirwc-Jjhdbo-Ysrdru Hx Patient Social History Alcohol Use: Occasionally Uses Smoking Status: Never a Smoker 2nd Hand Smoke Exposure: No Recent Infectious Disease Expo: No Recent Hopitalizations: No Immunizations Up To Date Tetanus Booster (TDap): Unknown PED Vaccines UTD: No Seasonal Allergies Seasonal Allergies: Yes Past Medical History Surgeries: Yes (HERNIA X3, LAPAROSCOPY (ENDOMETRIOSIS) X2) Abdominal Respiratory: Yes Asthma Cardiac: No Neurological: Yes Headaches /Migraines Female Reproductive Disorders: Endometriosis Sexually Transmitted Disease: No HIV/AIDS: No Genitourinary: No (INTERSTITIAL CYSTITIS) Gastrointestinal: Yes Abdominal Hernia Musculoskeletal: Yes (R KNEE TORN MCL) Endocrine: No HEENT: Yes (GLASSES/CONTACTS) Loss of Vision: Denies Hearing Impairment: Denies Cancer: No Psychosocial: Yes Anxiety Integumentary: No Blood Disorders: No Adverse Reaction/Blood Tranf: No (N/A) Physical Exam Vital Signs Vital Signs - First Documented 06/24/20 08:20 Temp 35.8 Pulse 111 Resp 16 B/P (MAP) 138/88 (105) Pulse Ox 98 O2 Delivery Room Air Capillary Refill : Less Than 3 Seconds Height, Weight, BMI Height: 5'6.00" Weight: 130lbs. oz. 58.919459nq; 23.00 BMI Method:Stated General Appearance: WD/WN, no apparent distress HEENT: PERRL/EOMI, pharynx normal Neck: full range of motion, normal inspection Cardiovascular: normal peripheral pulses, regular rate, rhythm Respiratory: no respiratory distress, no accessory muscle use Gastrointestinal: normal bowel sounds, no organomegaly, guarding, tenderness (Right lower quadrant and right CVA/flank), other (Negative for Rovsing sign. McBurney's point tenderness without rebound tenderness.) Extremities: non-tender, normal inspection, no pedal edema Neurologic/Psychiatric: alert, oriented x 3 Skin: normal color, warm/dry Progress/Results/Core Measures Suspected Sepsis Recent Fever Within 48 Hours: No Infection Criteria Present: None New/Unexplained Altered Menta: No Sepsis Screen: No Definite Risk SIRS Temperature: Pulse: 111 Respiratory Rate: 16 Laboratory Tests 06/24/20 08:45: White Blood Count 5.9 Blood Pressure 138 /88 Mean: 105 Laboratory Tests 06/24/20 08:45: Creatinine 0.85, Platelet Count 232, Total Bilirubin 0.2 Results/Orders Lab Results Laboratory Tests Test 06/24/20 08:32 06/24/20 08:45 Range/Units Urine Color YELLOW Urine Clarity CLEAR Urine pH 7.0 5-9 Urine Specific [place] 1.015 L 1.016-1.022 Urine Protein 1+ H NEGATIVE Urine Glucose (UA) NEGATIVE NEGATIVE Urine Ketones NEGATIVE NEGATIVE Urine Nitrite NEGATIVE NEGATIVE Urine Bilirubin NEGATIVE NEGATIVE Urine Urobilinogen 0.2 < = 1.0 MG/DL Urine Leukocyte Esterase TRACE H NEGATIVE Urine RBC (Auto) 3+ H NEGATIVE Urine RBC 25-50 H /HPF Urine WBC 2-5 /HPF Urine Squamous Epithelial Cells 10-25 H /HPF Urine Crystals NONE /LPF Urine Bacteria MODERATE H /HPF Urine Casts NONE /LPF Urine Mucus NEGATIVE /LPF Urine Culture Indicated YES White Blood Count 5.9 4.3-11.0 10^3/uL Red Blood Count 4.35 3.80-5.11 10^6/uL Hemoglobin 12.9 11.5-16.0 g/dL Hematocrit 39 35-52 % Mean Corpuscular Volume 90 80-99 fL Mean Corpuscular Hemoglobin 30 25-34 pg Mean Corpuscular Hemoglobin Concent 33 32-36 g/dL Red Cell Distribution Width 11.9 10.0-14.5 % Platelet Count 232 130-400 10^3/uL Mean Platelet Volume 9.1 9.0-12.2 fL Immature Granulocyte % (Auto) 0 % Neutrophils (%) (Auto) 70 42-75 % Lymphocytes (%) (Auto) 23 12-44 % Monocytes (%) (Auto) 6 0-12 % Eosinophils (%) (Auto) 1 0-10 % Basophils (%) (Auto) 0 0-10 % Neutrophils # (Auto) 4.1 1.8-7.8 10^3/uL Lymphocytes # (Auto) 1.3 1.0-4.0 10^3/uL Monocytes # (Auto) 0.4 0.0-1.0 10^3/uL Eosinophils # (Auto) 0.0 0.0-0.3 10^3/uL Basophils # (Auto) 0.0 0.0-0.1 10^3/uL Immature Granulocyte # (Auto) 0.0 0.0-0.1 10^3/uL Sodium Level 138 135-145 MMOL/L Potassium Level 4.1 3.6-5.0 MMOL/L Chloride Level 105 98-107 MMOL/L Carbon Dioxide Level 25 21-32 MMOL/L Anion Gap 8 5-14 MMOL/L Blood Urea Nitrogen 19 H 7-18 MG/DL Creatinine 0.85 0.60-1.30 MG/DL Estimat Glomerular Filtration Rate > 60 BUN/Creatinine Ratio 22 Glucose Level 98 70-105 MG/DL Calcium Level 8.8 8.5-10.1 MG/DL Corrected Calcium 8.7 8.5-10.1 MG/DL Total Bilirubin 0.2 0.1-1.0 MG/DL Aspartate Amino Transf (AST/SGOT) 17 5-34 U/L Alanine Aminotransferase (ALT/SGPT) 13 0-55 U/L Alkaline Phosphatase 56 40-136 U/L C-Reactive Protein High Sensitivity 0.01 0.00-0.50 MG/DL Total Protein 6.7 6.4-8.2 GM/DL Albumin 4.1 3.2-4.5 GM/DL My Orders Orders - AUTUMN WOLF Ua Culture If Indicated (06/24/20 08:21) Urine Bedside (06/24/20 08:21) Cbc With Automated Diff (06/24/20 08:27) Comprehensive Metabolic Panel (06/24/20 08:27) Hs C Reactive Protein (06/24/20 08:27) Ketorolac Injection (Toradol Injection) (06/24/20 08:30) Ondansetron Injection (Zofran Injectio (06/24/20 08:30) Ed Iv/Invasive Line Start (06/24/20 08:27) Lactated Ringers (Lr 1000 Ml Iv Solution (06/24/20 08:30) Urine Culture (06/24/20 08:32) Hydrocodone/Apap 5/325 Tablet (Lortab 5 (06/24/20 10:00) Us Non Ob Transvaginal [id number] (06/24/20 09:54) Ed Iv/Invasive Line Start (06/24/20 09:54) Medications Given in ED Current Medications Medications Dose Ordered Sig/Anjali Route Start Time Stop Time Status Last Admin Dose Admin Acetaminophen/ Hydrocodone Bitart 1 ea ONCE ONCE PO 06/24/20 10:00 06/24/20 10:01 DC 06/24/20 10:09 1 EA Ketorolac Tromethamine 30 mg ONCE ONCE IVP 06/24/20 08:30 06/24/20 08:31 DC 06/24/20 08:41 30 MG Lactated Ringer's 1,000 ml @ 0 mls/hr Q0M ONCE IV 06/24/20 08:30 06/24/20 08:31 DC 06/24/20 08:42 1,000 MLS/HR Ondansetron HCl 4 mg ONCE ONCE IVP 06/24/20 08:30 06/24/20 08:31 DC 06/24/20 08:41 4 MG Vital Signs/I&O 06/24/20 08:20 Temp 35.8 Pulse 111 Resp 16 B/P (MAP) 138/88 (105) Pulse Ox 98 O2 Delivery Room Air Capillary Refill : Less Than 3 Seconds Blood Pressure Mean: 105 Progress Note #1: Time: 08:39 Progress Note Differential includes gynecologic she has a history of endometriosis as well as she is about to start her period. Ectopic is ruled out by a negative bedside test. Ovarian cysts are possibility. The appendix lies in this area. Kidney stones or pyelonephritis are in the differential. She has a history of interstitial cystitis so obstruction is a possibility however she was able to produce some urine. Plan to get some labs including a CRP give her some fluids since she is tachycardic 110 as well as some pain medicine and nausea me dicine and reassess. Imaging may be indicated based on how she responds to pain medicine and her lab and urine results. Progress Note #2: Time: 09:55 Progress Note Pain is marginally improves were going to give her an hydrocodone. Labs are unremarkable for inflammatory changes. Interstitial cystitis seems to be more likely based on urinalysis and history. Plan to get an ultrasound to rule out other significant pathology related to right pelvic pain including torsion, cyst etc. We have made consult with Dr. Bolivar, urology and he recommends Flomax and follow-up in the clinic. Diagnostic Imaging Diagonstic Imaging: Ultrasound Plain Films/CT/US/NM/MRI: pelvis Comments [facility]. [place], [place] NAME: BRONWYN PICHARDO [facility] REC#: [id number] PT STATUS: REG ER : 1995 PHYSICIAN: AUTUMN WOLF MD ADMIT DATE: 06/24/20/ER Draft Date of Exam:06/24/20 US NON OB TRANSVAGINAL [id number] PROCEDURE: US NONOB transvaginal. TECHNIQUE: Multiple real-time grayscale images were obtained of the pelvis in various projections endovaginally. INDICATION: Right pelvic pain COMPARISON: CT from 02/25/2019 FINDINGS: The uterus is normal in size. The endometrium is not thickened measuring 7 mm. No uterine masses are seen. The uterus has a sub-septate appearance, likely arcuate. There are nabothian cysts present, the largest measuring 6 mm. The right ovary measures 3.6 x 1.9 x 3.5 cm and appears normal with multiple follicles. Left ovary measures 2.8 x 1.7 x 2.2 cm and also appears normal with multiple follicles. Blood flow is normal. No free fluid is seen. IMPRESSION: 1. Normal-appearing ovaries without torsion. 2. Small nabothian cysts with no uterine mass seen. Dictated on workstation # [id number] Dict: 06/24/20 1115 Trans: 06/24/20 1122 CVB [id number] Interpreted by: MADDIE WILKINSON MD Electronically signed by: Reviewed: Reviewed by Me Departure Impression Primary Impression: Interstitial cystitis (chronic) with hematuria Disposition: HOME, SELF-CARE Condition: Stable Departure-Patient Inst. Decision time for Depature: 12:21 Referrals: NO,LOCAL PHYSICIAN (PCP) Primary Care Physician DEEPALI LAMB APRN (Family) Primary Care Physician BROOK BOLIVAR MD Patient Instructions: Interstitial Cystitis (DC) Add. Discharge Instructions: Make a follow-up appointment with Dr. Bolivar, urology. Hydrocodone 1 tablet every 6 hours as necessary for severe breakthrough pain. Otherwise Tylenol and ibuprofen as necessary for pain. Flomax 1 capsule daily until you see the urologist. Return to the ER promptly if you are unable to urinate at all for more than 8 hours with severe pain. All discharge instructions reviewed with patient and/or family. Voiced understanding. Scripts Nitrofurantoin Macrocrystal (Nitrofurantoin) 100 Mg Capsule 100 MG PO BID, #14 CAP 0 Refills Prov: AUTUMN WOLF 06/24/20 Ondansetron (Ondansetron Odt) 4 Mg Tab.rapdis 4 MG PO Q6H PRN for NAUSEA/VOMITING, #8 TAB 0 Refills Prov: AUTUMN WOLF 06/24/20 Hydrocodone/Acetaminophen (Hydrocodone-Acetamin 5-325 mg) 1 Each Tablet 1 TAB PO Q6H PRN for PAIN-MODERATE (5-7), #8 TAB 0 Refills Prov: AUTUMN WOLF 06/24/20 Tamsulosin HCl (Flomax) 0.4 Mg Cap 0.4 MG PO DAILY for 14 Days, #14 CAP 0 Refills Prov: AUTUMN WOLF 06/24/20 Work/School Note: Work Release Form Date Seen in the Emergency Department: June 24, 2020 Return to Work: June 26, 2020 Restrictions: No Restrictions Other Restrictions Listed Below: May return sooner if feeling better. Copy Copies To 1: BROOK BOLIVAR MD, TITUS J June 24, 2020 08:36
[2020-06-24 08:37] LABS: BILIRUBIN,URINE NEGATIVE (NEGATIVE); CLARITY,URINE CLEAR; COLOR,URINE YELLOW; GLUCOSE, URINE (UA) NEGATIVE (NEGATIVE); KETONES,URINE NEGATIVE (NEGATIVE); LEUKOCYTE ESTERASE ,URINE TRACE (NEGATIVE); NITRITE,URINE NEGATIVE (NEGATIVE); PROTEIN,URINE 1+ (NEGATIVE)
[2020-06-24 08:50] LABS: BASOPHILS % (AUTO) 0 % (0-10); EOSINOPHILS % (AUTO) 1 % (0-10); HEMATOCRIT 39 % (35-52); HEMOGLOBIN 12.9 g/dL (11.5-16.0); LYMPHOCYTES # (AUTO) 1.3 10^3/uL (1.0-4.0); LYMPHOCYTES % (AUTO) 23 % (12-44); MEAN CORPUSCULAR HEMOGLOBIN 30 pg (25-34); MEAN CORPUSCULAR HGB CONC 33 g/dL (32-36); MEAN CORPUSCULAR VOLUME 90 fL (80-99); MEAN PLATELET VOLUME 9.1 fL (9.0-12.2); MONOCYTES # (AUTO) 0.4 10^3/uL (0.0-1.0); MONOCYTES % (AUTO) 6 % (0-12); NEUTROPHILS # (AUTO) 4.1 10^3/uL (1.8-7.8); NEUTROPHILS % (AUTO) 70 % (42-75); PLATELET COUNT 232 10^3/uL (130-400); WHITE BLOOD COUNT 5.9 10^3/uL (4.3-11.0)
[2020-06-24 08:50] LABS: RBC,URINE 25-50 /HPF
[2020-06-24 08:51] LABS: BACTERIA,URINE MODERATE /HPF
[2020-06-24 09:09] LABS: ALBUMIN 4.1 GM/DL (3.2-4.5); CHLORIDE 105 MMOL/L (98-107); POTASSIUM 4.1 MMOL/L (3.6-5.0); SODIUM 138 MMOL/L (135-145)
[2020-06-24 09:11] LABS: CALCIUM 8.8 MG/DL (8.5-10.1)
[2020-06-24 09:12] LABS: GLUCOSE 98 MG/DL (70-105); TOTAL PROTEIN 6.7 GM/DL (6.4-8.2)
[2020-06-24 09:13] LABS: BILIRUBIN,TOTAL 0.2 MG/DL (0.1-1.0); CARBON DIOXIDE 25 MMOL/L (21-32)
[2020-06-24 09:15] LABS: ALKALINE PHOSPHATASE 56 U/L (40-136); CREATININE SERUM 0.85 MG/DL (0.60-1.30); GFR ESTIMATED > 60
[2020-06-24 09:16] LABS: BUN/CREATININE RATIO 22
[2020-06-24 09:18] LABS: ALANINE AMINOTRANSFERASE 13 U/L (0-55)
[2020-06-24] MEDS ORDERED: HYDROcodone/APAP 5 MG/325 MG (LORTAB) TAB PO ONE (10:00)
--- NOTE | 2020-06-24 11:22 | Diagnostic Imaging Report ---
PROCEDURE: US NONOB transvaginal. TECHNIQUE: Multiple real-time grayscale images were obtained of the pelvis in various projections endovaginally. INDICATION: Right pelvic pain COMPARISON: CT from 02/25/2019 FINDINGS: The uterus is normal in size. The endometrium is not thickened measuring 7 mm. No uterine masses are seen. The uterus has a sub-septate appearance, likely arcuate. There are nabothian cysts present, the largest measuring 6 mm. The right ovary measures 3.6 x 1.9 x 3.5 cm and appears normal with multiple follicles. Left ovary measures 2.8 x 1.7 x 2.2 cm and also appears normal with multiple follicles. Blood flow is normal. No free fluid is seen. IMPRESSION: 1. Normal-appearing ovaries without torsion. 2. Small nabothian cysts with no uterine mass seen. Dictated by: Dictated on workstation # [id number]
[2020-06-24] MEDS ORDERED: TMSL.4C PO (12:24)
[2020-06-24] MEDS ORDERED: ONDA4TAB11 PO (12:24)
[2020-06-24] MEDS ORDERED: ACHD5005 PO (12:24)
[2020-06-24] MEDS ORDERED: NITR100C PO (12:31)
[2020-06-24 12:32] VITALS: BP 137/87
== END 2020-06-24 12:32 | disposition home or self-care (01) ==
LOC: EDUNIT# 08:13 → ER 08:15
DX: N30.11 Interstitial cystitis (chronic) with hematuria (principal); J45.909 Unspecified asthma, uncomplicated
CPT/HCPCS: 36415; 76830; 80053; 81000; 84703; 85025; 86141; 87077; 87088

== ENCOUNTER → 2020-07-03 | Outpatient (CLI) | payer OTHER ==
[~2020-07-03] MED LIST changes: +ACHD5005 PO; +HYDR-700; +LORAZEPAM; +NITR100C PO; +NORE0.3520; +PROM25TA14; +TMSL.4C PO
--- NOTE | 2020-07-03 08:36 | Diagnostic Imaging Report ---
PROCEDURE: CT abdomen and pelvis without contrast. TECHNIQUE: Multiple contiguous axial images were obtained through the abdomen and pelvis without the use of intravenous contrast. Auto Exposure Controls were utilized during the CT exam to meet ALARA standards for radiation dose reduction. INDICATION: Bilateral flank pain and urinary retention. Comparison is made with prior CT from 02/25/2019. The lung bases are clear. The liver and gallbladder are unremarkable. There is no biliary duct dilatation. Pancreas and spleen are unremarkable. No adrenal mass is detected. No renal calculi are identified. There is no hydronephrosis. Aorta is nonaneurysmal. The small and large bowel loops are normal caliber. No free fluid or fluid collection. Uterus and ovaries as well as the bladder appear unremarkable. No inflammatory changes are identified. IMPRESSION: Unremarkable noncontrast CT of the abdomen and pelvis. Dictated by: Dictated on workstation # [id number]
== END ==
LOC: RAD 07-02 07:30
PROVIDERS: ATTEND Nurse Practitioner Family
DX: R33.9 Retention of urine, unspecified (principal); R10.9 Unspecified abdominal pain
CPT/HCPCS: 74176

== ENCOUNTER 2020-09-15 11:15 | Emergency (ER) | payer OTHER ==
[~2020-09-15] VITALS: Ht 167.7 cm; Wt 67.7 kg
[2020-09-15] MEDS ORDERED: LACTATED RINGERS 1,000 ML IV ONE (11:45)
[2020-09-15] MEDS ORDERED: PROMETHAZINE INJ 25 MG/ML (PHENERGAN) AMP IVP ONE (11:45)
[2020-09-15 12:12] LABS: BASOPHILS % (AUTO) 0 % (0-10); EOSINOPHILS % (AUTO) 0 % (0-10); HEMATOCRIT 36 % (35-52); HEMOGLOBIN 11.9 g/dL (11.5-16.0); LYMPHOCYTES # (AUTO) 1.2 10^3/uL (1.0-4.0); LYMPHOCYTES % (AUTO) 21 % (12-44); MEAN CORPUSCULAR HEMOGLOBIN 30 pg (25-34); MEAN CORPUSCULAR HGB CONC 34 g/dL (32-36); MEAN CORPUSCULAR VOLUME 88 fL (80-99); MEAN PLATELET VOLUME 9.5 fL (9.0-12.2); MONOCYTES # (AUTO) 0.5 10^3/uL (0.0-1.0); MONOCYTES % (AUTO) 8 % (0-12); NEUTROPHILS # (AUTO) 4.2 10^3/uL (1.8-7.8); NEUTROPHILS % (AUTO) 71 % (42-75); PLATELET COUNT 240 10^3/uL (130-400); WHITE BLOOD COUNT 5.9 10^3/uL (4.3-11.0)
[2020-09-15 12:13] LABS: POTASSIUM 3.7 MMOL/L (3.6-5.0)
[2020-09-15] MEDS ORDERED: ACETAMINOPHEN 500 MG TAB (TYLENOL) PO STA (12:14)
[2020-09-15 12:15] LABS: CALCIUM 8.7 MG/DL (8.5-10.1)
[2020-09-15 12:16] LABS: TOTAL PROTEIN 6.7 GM/DL (6.4-8.2)
[2020-09-15 12:18] LABS: BILIRUBIN,TOTAL 0.2 MG/DL (0.1-1.0)
[2020-09-15 12:20] LABS: CREATININE SERUM 0.67 MG/DL (0.60-1.30)
--- NOTE | 2020-09-15 12:21 | ED GI ---
General Chief Complaint: Abdominal/GI Problems Stated Complaint: N/V/D, 11 WKS PREG Nursing Triage Note: AMB TO ROOM REPORTS IS 11WEEKS PREG AND HAS BEEN HAVING NAUSEA VOMITING WITH DIARRHEA. HAS HAD HEADACHE BUT HAS HX OF MIGRAIN. DID GET COVID VACCAINE AND DID HAVE COVID IN NOV. (SHARLA FAIRCHILD) History of Present Illness Date Seen by Provider: Sep 15, 2020 Time Seen by Provider: 11:50 Initial Comments 25-year-old female presents for nausea, vomiting, and diarrhea associated with a headache that has been present intermittently for approximately 2 weeks. The patient is 11 weeks and 6 days gestation, she has a longstanding history of migraines and is unable to take her migraine medication due to . She was recently switched to Reglan to help with the migraines and nausea. She reports multiple episodes of small emesis this morning and continued nausea and headache. She has had very little input and is concerned about dehydration. She also reports her urine to be dark and have an odor. She denies any vaginal discharge or spotting. Timing/Duration: 2-3 Days, Intermittent Severity/Quality: Moderate Associated Symptoms: No Back Pain, No Chest Pain, No Diaphoresis, No Fever/Chills, No Fatigue; Headache; No Heartburn; Nausea/Vomiting; No Rash, No Shortness of Air, No Swelling/Mass in Abdomen, No Syncope, No Weakness (SHARLA FAIRCHILD) Allergies and Home Medications Allergies Coded Allergies: shrimp (Verified Allergy, Unknown, 10/31/19) Home Medications Hydrocodone/Acetaminophen 1 Each Tablet, 1 TAB PO Q6H PRN for PAIN-MODERATE (5- 7) Prescribed by: AUTUMN WOLF on 06/24/20 1225 Nitrofurantoin Macrocrystal 100 Mg Capsule, 100 MG PO BID Prescribed by: AUTUMN WOLF on 06/24/20 1231 Ondansetron 4 Mg Tab.rapdis, 4 MG PO Q6H PRN for NAUSEA/VOMITING Prescribed by: AUTUMN WOLF on 06/24/20 1224 Tamsulosin HCl 0.4 Mg Cap, 0.4 MG PO DAILY Prescribed by: AUTUMN WOLF on 06/24/20 1224 Patient Home Medication List Home Medication List Reviewed: Yes (SHARLA FAIRCHILD) Review of Systems Review of Systems Constitutional: no symptoms reported, see HPI; No fever EENTM: No Symptoms Reported, See HPI Respiratory: No Symptoms Reported, See HPI Cardiovascular: No Symptoms Reported, See HPI Gastrointestinal: See HPI; Denies Abdominal Pain; Constipated, Diarrhea, Nausea, Poor Fluid Intake, Vomiting Genitourinary: See HPI, Frequency Musculoskeletal: no symptoms reported, see HPI Skin: no symptoms reported, see HPI Psychiatric/Neurological: See HPI, Headache (SHARLA FAIRCHILD) All Other Systems Reviewed Negative Unless Noted: Yes (SHARLA FAIRCHILD) Past Vvszxdu-Qvygxq-Ktsyoy Hx Patient Social History Tobacco Use?: No Smoking Status: Never a Smoker Substance use?: No Pt feels they are or have been: No (SHARLA FAIRCHILD) Immunizations Up To Date Tetanus Booster (TDap): Unknown PED Vaccines UTD: No Influenza Vaccine Up-to-Date: No; Not Current First/Initial COVID19 Vaccinat: MAR Second COVID19 Vaccination Gilbert: APRIL (SHARLA FAIRCHILD) Seasonal Allergies Seasonal Allergies: Yes (SHARLA FAIRCHILD) Past Medical History Surgeries: Yes (HERNIA X3, LAPAROSCOPY (ENDOMETRIOSIS) X2) Abdominal Respiratory: Yes Asthma Cardiac: No Neurological: Yes Headaches /Migraines Expected Date of Delivery: Mar 31, 2021 Last Menstrual Period: June 24, 2020 Female Reproductive Disorders: Endometriosis Sexually Transmitted Disease: No HIV/AIDS: No Genitourinary: No (INTERSTITIAL CYSTITIS) Gastrointestinal: Yes Abdominal Hernia Musculoskeletal: Yes (R KNEE TORN MCL) Endocrine: No HEENT: Yes (GLASSES/CONTACTS) Loss of Vision: Denies Hearing Impairment: Denies Cancer: No Psychosocial: Yes Anxiety Integumentary: No Blood Disorders: No Adverse Reaction/Blood Tranf: No (N/A) (SHARLA FAIRCHILD) Family Medical History Reviewed Nursing Family Hx (SHARLA FAIRCHILD) Physical Exam Vital Signs Vital Signs - First Documented 09/15/20 11:20 Temp 36.2 Pulse 86 Resp 18 B/P (MAP) 131/82 (98) Pulse Ox 97 O2 Delivery Room Air (JIMBO CRUZ MD) Vital Signs Capillary Refill : Less Than 3 Seconds (SHARLA FAIRCHILD) Height/Weight/BMI Height: 5'6.00" Weight: 130lbs. oz. 58.477445sh; 24.00 BMI Method:Stated General Appearance: WD/WN, no apparent distress HEENT: PERRL/EOMI, normal ENT inspection, TMs normal, pharynx normal, other (Oral mucosa pink and moist) Neck: non-tender, full range of motion, supple, normal inspection Respiratory: chest non-tender, lungs clear, normal breath sounds Cardiovascular: normal peripheral pulses, regular rate, rhythm Gastrointestinal: normal bowel sounds, non tender, soft; No guarding, No rebound, No tenderness Extremities: normal range of motion, non-tender, normal inspection, no pedal edema, no calf tenderness, normal capillary refill Neurologic/Psychiatric: no motor/sensory deficits, alert, normal mood/affect, oriented x 3 Skin: normal color, warm/dry, other (Skin turgor less than 2 seconds.) (SHARLA DOMINGUEZ) Progress/Results/Core Measures Results/Orders Lab Results Laboratory Tests Test 09/15/20 11:46 09/15/20 12:14 Range/Units White Blood Count 5.9 4.3-11.0 10^3/uL Red Blood Count 4.02 3.80-5.11 10^6/uL Hemoglobin 11.9 11.5-16.0 g/dL Hematocrit 36 35-52 % Mean Corpuscular Volume 88 80-99 fL Mean Corpuscular Hemoglobin 30 25-34 pg Mean Corpuscular Hemoglobin Concent 34 32-36 g/dL Red Cell Distribution Width 13.1 10.0-14.5 % Platelet Count 240 130-400 10^3/uL Mean Platelet Volume 9.5 9.0-12.2 fL Immature Granulocyte % (Auto) 1 % Neutrophils (%) (Auto) 71 42-75 % Lymphocytes (%) (Auto) 21 12-44 % Monocytes (%) (Auto) 8 0-12 % Eosinophils (%) (Auto) 0 0-10 % Basophils (%) (Auto) 0 0-10 % Neutrophils # (Auto) 4.2 1.8-7.8 10^3/uL Lymphocytes # (Auto) 1.2 1.0-4.0 10^3/uL Monocytes # (Auto) 0.5 0.0-1.0 10^3/uL Eosinophils # (Auto) 0.0 0.0-0.3 10^3/uL Basophils # (Auto) 0.0 0.0-0.1 10^3/uL Immature Granulocyte # (Auto) 0.0 0.0-0.1 10^3/uL Sodium Level 139 135-145 MMOL/L Potassium Level 3.7 3.6-5.0 MMOL/L Chloride Level 109 H 98-107 MMOL/L Carbon Dioxide Level 21 21-32 MMOL/L Anion Gap 9 5-14 MMOL/L Blood Urea Nitrogen 8 7-18 MG/DL Creatinine 0.67 0.60-1.30 MG/DL Estimat Glomerular Filtration Rate 108 BUN/Creatinine Ratio 12 Glucose Level 95 70-105 MG/DL Calcium Level 8.7 8.5-10.1 MG/DL Corrected Calcium 8.7 8.5-10.1 MG/DL Total Bilirubin 0.2 0.1-1.0 MG/DL Aspartate Amino Transf (AST/SGOT) 14 5-34 U/L Alanine Aminotransferase (ALT/SGPT) 16 0-55 U/L Alkaline Phosphatase 44 40-136 U/L Total Protein 6.7 6.4-8.2 GM/DL Albumin 4.0 3.2-4.5 GM/DL Urine Color YELLOW Urine Clarity CLEAR Urine pH 7.0 5-9 Urine Specific [place] 1.015 L 1.016-1.022 Urine Protein NEGATIVE NEGATIVE Urine Glucose (UA) NEGATIVE NEGATIVE Urine Ketones NEGATIVE NEGATIVE Urine Nitrite NEGATIVE NEGATIVE Urine Bilirubin NEGATIVE NEGATIVE Urine Urobilinogen 1.0 < = 1.0 MG/DL Urine Leukocyte Esterase NEGATIVE NEGATIVE Urine RBC (Auto) NEGATIVE NEGATIVE Urine RBC NONE /HPF Urine WBC NONE /HPF Urine Squamous Epithelial Cells 2-5 /HPF Urine Crystals NONE /LPF Urine Bacteria TRACE /HPF Urine Casts NONE /LPF Urine Mucus NEGATIVE /LPF Urine Culture Indicated NO (JIMBO CRUZ MD) My Orders Orders - JIMBO CRUZ MD Promethazine Injection (Phenergan Injec (09/15/20 11:45) Ed Iv/Invasive Line Start (09/15/20 11:39) Lactated Ringers (Lr 1000 Ml Iv Solution (09/15/20 11:45) (JIMBO CRUZ MD) Medications Given in ED Current Medications Medications Dose Ordered Sig/Anjali Route Start Time Stop Time Status Last Admin Dose Admin Lactated Ringer's 1,000 ml @ 0 mls/hr Q0M ONCE IV 09/15/20 11:45 09/15/20 11:46 DC 09/15/20 11:51 1,000 MLS/HR Promethazine HCl 25 mg ONCE ONCE IVP 09/15/20 11:45 09/15/20 11:46 DC 09/15/20 11:50 25 MG (JIMBO CRUZ MD) Vital Signs/I&O 09/15/20 09/15/20 11:20 13:43 Temp 36.2 Pulse 86 66 Resp 18 18 B/P (MAP) 131/82 (98) 105/45 Pulse Ox 97 98 O2 Delivery Room Air Room Air (JIMBO CRUZ MD) Blood Pressure Mean: 98 Progress Progress Note : Time: 11:50 Progress Note Patient seen and evaluated, receiving LR with Phenergan, patient does report improvement in her nausea. Headache still present. Will give Tylenol 1000 mg for that. Awaiting labs. 1245 labs all within normal limits, patient reports improvement in her symptoms. Taking ice chips with no nausea or vomiting. Awaiting IV fluid infusion. Discharge instructions and return precautions reviewed with the patient. (SHARLA FAIRCHILD) Departure Impression Primary Impression: First trimester Additional Impressions: Headache Qualified Codes: R51.9 - Headache, unspecified; G89.29 - Other chronic pain Nausea vomiting and diarrhea Disposition: 01 HOME, SELF-CARE Condition: Improved Departure-Patient Inst. Decision time for Depature: 12:45 (SHARLA FAIRCHILD) Referrals: JANNETH NAVARRETE MD (PCP/Family) Primary Care Physician Patient Instructions: Headache, Adult (DC), Nausea and Vomiting of (DC) Add. Discharge Instructions: Continue to push small sips of fluids, water, Pedialyte, or prudencio sanaz. Continue to take the medications prescribed by your OB doctor, take Tylenol 650 mg every 6-8 hours as needed for headache. Follow-up with your OB doctor if symptoms are not improving or worsen. Return to the emergency department for new, urgent healthcare needs. All discharge instructions reviewed with patient and/or family. Voiced understanding. ATTENDING PHYSICIAN NOTE: I was physically present as attending physician in the emergency department during the care of this patient after discussing with nursing staff who triaged the patient, I ordered IV fluids and Phenergan. I was otherwise not directly involved in the decision making or delivery of care for this patient. Care was transitioned to Sharla Fairchild NP (JIMBO CRUZ MD) Copy Copies To 1: JANNETH NAVARRETE MD, AMY ARNP Sep 15, 2020 12:21 JIMBO CRUZ MD Sep 15, 2020 14:43
[2020-09-15 12:23] LABS: BILIRUBIN,URINE NEGATIVE (NEGATIVE); CLARITY,URINE CLEAR; COLOR,URINE YELLOW; GLUCOSE, URINE (UA) NEGATIVE (NEGATIVE); KETONES,URINE NEGATIVE (NEGATIVE); LEUKOCYTE ESTERASE ,URINE NEGATIVE (NEGATIVE); NITRITE,URINE NEGATIVE (NEGATIVE); PROTEIN,URINE NEGATIVE (NEGATIVE)
[2020-09-15 12:32] LABS: BACTERIA,URINE TRACE /HPF
[2020-09-15 13:43] VITALS: BP 105/45
== END 2020-09-15 13:49 | disposition home or self-care (01) ==
LOC: EDUNIT# 11:15 → ER 11:17
DX: O21.0 Mild hyperemesis gravidarum (principal); O26.891 Other specified pregnancy related conditions, first trimester; R51.9 Headache, unspecified; R19.7 Diarrhea, unspecified; J45.909 Unspecified asthma, uncomplicated; Z3A.11 11 weeks gestation of pregnancy
CPT/HCPCS: 36415; 80053; 81000; 85025

== ENCOUNTER 2021-01-22 12:06 | Emergency (ER) | payer MEDICAID, OTHER ==
[~2021-01-22] VITALS: Ht 167.7 cm; Wt 67.7 kg
[~2021-01-22 12:06] MED LIST changes: +MONT-40 PO; -MONT10TA32 PO
[2021-01-22 12:13] VITALS: BP 125/76
[2021-01-22] MEDS ORDERED: BUPIVACAINE 0.5% 30 ML (SENSORCAINE) VIAL INJ ONE (12:30)
--- NOTE | 2021-01-22 12:53 | ED EENT ---
History of Present Illness General Chief Complaint: Dental Problems/Pain Stated Complaint: ABCESS TOOTH Nursing Triage Note: DENTAL PAIN SINCE WEDNESDAY SAW DENTIST YESTERDAY, AND WAS GIVEN ANTIBIOTIC AND PAIN MEDICINE. STATES PAIN MEDICINE IS NOT WORKING. 30 WEEKS AND 2 DAYS Source: patient Exam Limitations: no limitations History of Present Illness Date Seen by Provider: Jan 22, 2021 Time Seen by Provider: 12:51 Initial Comments Patient is a 25-year-old who presents ED with right lower dental pain. She reports pain since Wednesday. Sharp pain radiating to her right ear right neck. She saw her dentist earlier this week and was prescribed clindamycin. She den ies of any significant improvement. She was given Goodwin without much improvement. Patient was started on Flagyl today but has not taken the antibiotic. She was recommended to come to ED for further evaluation. No facial swelling, redness. She is currently 30 weeks . Denies any abdominal pain, vaginal bleeding, fever, chills, headache, dizziness. Allergies and Home Medications Allergies Coded Allergies: shrimp (Verified Allergy, Unknown, 10/31/19) Patient Home Medication List Home Medication List Reviewed: Yes Hydrocodone/Acetaminophen (Hydrocodone-Acetamin 5-325 mg) 1 Each Tablet, 1 TAB PO Q6H PRN for PAIN-MODERATE (5-7) Prescribed by: AUTUMN WOLF on 06/24/20 1225 Hydroxyzine HCl (Hydroxyzine HCl) 25 Mg Tablet, (Reported) Entered as Reported by: DEANNE OBANDO on 06/24/20 0831 Nitrofurantoin Macrocrystal (Nitrofurantoin) 100 Mg Capsule, 100 MG PO BID Prescribed by: AUTUMN WOLF on 06/24/20 1231 Norethindrone (Norethindrone) 0.35 Mg Tablet, (Reported) Entered as Reported by: DEANNE OBANDO on 06/24/20 0831 Ondansetron (Ondansetron Odt) 4 Mg Tab.rapdis, 4 MG PO Q6H PRN for NAUSEA/VOMITING Prescribed by: AUTUMN WOLF on 06/24/20 1224 Promethazine HCl (Promethazine Tablet) 25 Mg Tablet, (Reported) Entered as Reported by: DEANNE OBANDO on 06/24/20 0831 Tamsulosin HCl (Flomax) 0.4 Mg Cap, 0.4 MG PO DAILY Prescribed by: AUTUMN WOLF on 06/24/20 1224 [Lorazepam] , (Reported) Entered as Reported by: DEANNE OBANDO on 06/24/20 0831 Review of Systems Review of Systems Constitutional: No chills, No dizziness, No fever, No malaise Eyes: Denies Pain, Denies Photophobia Ears: Denies Pain, Denies Bloody Discharge, Denies Clear Discharge Nose: denies congestion, denies pain Mouth: denies clots; pain Throat: denies pain, denies swelling, denies discharge Respiratory: No cough, No short of breath Cardiovascular: No chest pain, No edema Gastrointestinal: No abdominal pain, No diarrhea, No nausea, No vomiting : Yes Expected Date of Delivery: Mar 31, 2021 Musculoskeletal: No back pain, No joint pain Skin: No change in color, No change in hair/nails Neurological: No Symptoms Reported Hematologic/Lymphatic: No Symptoms Reported All Other Systems Reviewed Negative Unless Noted: Yes Past Mjqzzfk-Tzigoz-Skedhh Hx Patient Social History Tobacco Use?: No Use of E-Cig and/or Vaping dev: No Substance use?: No Alcohol Use?: No Pt feels they are or have been: No Immunizations Up To Date Tetanus Booster (TDap): Unknown PED Vaccines UTD: No First/Initial COVID19 Vaccinat: MAR Second COVID19 Vaccination Gilbert: APRIL COVID19 Vaccine Vice President Financial: MODERNA Seasonal Allergies Seasonal Allergies: Yes Past Medical History Surgeries: Yes (HERNIA X3, LAPAROSCOPY (ENDOMETRIOSIS) X2) Abdominal Respiratory: Yes Asthma Cardiac: No Neurological: Yes Headaches /Migraines Expected Date of Delivery: Mar 31, 2021 Female Reproductive Disorders: Endometriosis Sexually Transmitted Disease: No HIV/AIDS: No Genitourinary: No (INTERSTITIAL CYSTITIS) Gastrointestinal: Yes Abdominal Hernia Musculoskeletal: Yes (R KNEE TORN MCL) Endocrine: No HEENT: Yes (GLASSES/CONTACTS) Loss of Vision: Denies Hearing Impairment: Denies Cancer: No Psychosocial: Yes Anxiety Integumentary: No Blood Disorders: No Adverse Reaction/Blood Tranf: No (N/A) Physical Exam Vital Signs Vital Signs - First Documented 01/22/21 12:13 Temp 36.4 Pulse 70 Resp 20 B/P (MAP) 125/76 (92) Pulse Ox 98 Height, Weight, BMI Height: 5'6.00" Weight: 130lbs. oz. 58.093978cf; 24.00 BMI Method:Stated General Appearance: WD/WN, no apparent distress Nose: normal inspection Mouth/Throat: pharynx normal, dental tenderness; No pharynx swelling, No pharynx tenderness; other (Right second molar tenderness with decay. No fluctuant mass. Mild gum irritation and erythema.) Cardiovascular: regular rate, rhythm, no edema, no gallop, no JVD Respiratory: chest non-tender, lungs clear, normal breath sounds Gastrointestinal: normal bowel sounds, non tender, soft, no organomegaly Neurologic/Psychiatric: corrugator operator II-XII nml as tested, no motor/sensory deficits, alert, normal mood/affect, oriented x 3 Skin: normal color, warm/dry Procedures/Interventions Dental Procedures: block Progress Consent provided to patient. Dental block to right lower infra alveolar. Marcaine 0.5% 2 cc was used with 27-gauge needle. Area was prepped with Betadine. Patient tolerated procedure well. No bleeding noted after procedure. Progress/Results/Core Measures Results/Orders My Orders Orders - LINDA DAVIS Bupivacaine 0.5% Injection (Sensorcaine (01/22/21 12:30) Medications Given in ED Current Medications Medications Dose Ordered Sig/Anjali Route Start Time Stop Time Status Last Admin Dose Admin Bupivacaine HCl 30 ml ONCE ONCE INJ 01/22/21 12:30 01/22/21 12:31 DC 01/22/21 12:45 30 ML Vital Signs/I&O 01/22/21 12:13 Temp 36.4 Pulse 70 Resp 20 B/P (MAP) 125/76 (92) Pulse Ox 98 Blood Pressure Mean: 92 Departure Communication (Admissions) Patient is currently 30 weeks . Continue right lower dental pain. Started on clindamycin 1 day ago. Was prescribed Flagyl today. Patient has been taking Goodwin. No facial swelling or redness. Decay noted right lower second molar. No fluctuant mass. Provided dental block with Marcaine for relief for the time being until antibiotics can improve her symptoms. Patient no acute distress. She is currently 30 weeks . No abdominal pain, vaginal bleeding. Patient will be discharged at this time as pain is completely resolved. Return precaution were discussed with patient Impression Primary Impression: Pain, dental Disposition: 01 HOME, SELF-CARE Condition: Stable Departure-Patient Inst. Decision time for Depature: 12:52 Referrals: JANNETH NAVARRETE MD (PCP/Family) Primary Care Physician Patient Instructions: Dental Pain LINDA DAVIS Jan 22, 2021 12:53
== END 2021-01-22 12:56 | disposition home or self-care (01) ==
LOC: EDUNIT# 12:06 → ER 12:07
DX: K08.89 Other specified disorders of teeth and supporting structures (principal); J45.909 Unspecified asthma, uncomplicated; F41.9 Anxiety disorder, unspecified; Z79.899 Other long term (current) drug therapy
CPT/HCPCS: 99283

== ENCOUNTER 2021-02-04 18:34 | Observation (INO) | payer MEDICAID ==
[~2021-02-04] VITALS: Ht 167.6 cm; Wt 76.3 kg
[2021-02-04 18:40] VITALS: BP 131/67
[2021-02-04] MEDS ORDERED: PRD10T PO (19:34)
[2021-02-04] MEDS ORDERED: GUAI1CAP52 PO (19:34)
[2021-02-04] MEDS ORDERED: ACET-2267 PO (19:34)
[2021-02-04] MEDS ORDERED: AZIT250T PO (19:34)
[2021-02-04] MEDS ORDERED: CETI10TA49 PO (19:34)
[2021-02-04] MEDS ORDERED: HYDR-3584 PO (19:34)
[2021-02-04] MEDS ORDERED: MONT10TA21 PO (19:34)
[2021-02-04] MEDS ORDERED: PREN1TAB79 PO (19:34)
[2021-02-04 20:19] LABS: BILIRUBIN,URINE NEGATIVE (NEGATIVE); CLARITY,URINE CLEAR; COLOR,URINE YELLOW; GLUCOSE, URINE (UA) NEGATIVE (NEGATIVE); KETONES,URINE NEGATIVE (NEGATIVE); LEUKOCYTE ESTERASE ,URINE NEGATIVE (NEGATIVE); NITRITE,URINE NEGATIVE (NEGATIVE); PROTEIN,URINE NEGATIVE (NEGATIVE)
[2021-02-04] MEDS ORDERED: LACTATED RINGERS 1,000 ML IV SCH (20:30)
[2021-02-04 21:02] LABS: BACTERIA,URINE TRACE /HPF; SQUAMOUS EPITHELIAL CELL,UR RARE /HPF
[2021-02-04] MEDS ORDERED: LACTATED RINGERS 1,000 ML IV ONE (21:22)
[2021-02-04] MEDS: LACTATED RINGERS 1,000 ML IV SCH (21:31)
[2021-02-04 21:35] VITALS: BP 125/63
[2021-02-04] MEDS ORDERED: FLUCONAZOLE 150 MG TABLET (ED ONLY) PO ONE (21:45)
[2021-02-04] MEDS ORDERED: ACETAMINOPHEN 500 MG TAB (TYLENOL) ONE (22:15)
[2021-02-04] MEDS ORDERED: ACETAMINOPHEN 500 MG TAB (TYLENOL) PO PRN (22:15)
[2021-02-04] MEDS ORDERED: TERBUTALINE INJ 1 MG/ML (BRETHINE) AMP ONE (22:53)
[2021-02-04] MEDS ORDERED: TERBUTALINE INJ 1 MG/ML (BRETHINE) AMP SC PRN (23:00)
[2021-02-05 02:49] VITALS: BP 104/53
[2021-02-05] MEDS: LACTATED RINGERS 1,000 ML IV SCH (03:56)
[2021-02-05 08:00] VITALS: BP 113/62
--- NOTE | 2021-02-05 09:19 | Diagnostic Imaging Report ---
INDICATION: contractions. FINDINGS: There is a single live fetus in a cephalic presentation. The heart rate was recorded at 149 BPM. The placenta is anterior. The amniotic fluid index is 16.9 cm. The cervical length is 4 cm. IMPRESSION: Unremarkable limited ultrasound. Dictated by: Dictated on workstation # [id number]
[2021-02-05 09:45] VITALS: BP 113/62
--- NOTE | 2021-02-05 10:33 | Short Stay Summary ---
History of Present Illness History of Present Illness Reason for visit/HPI at 32 weeks gestation presented due to regular painful contractions, found to have regular contractions on admission with closed cervix. She has had bronchitis and been on azithromycin and prednisone, but denies any other concerns. No vaginal bleeding, leaking fluid. Feeling baby move. Denies complications. Date of Admission Feb 05, 2021 at 09:50 Date of Discharge Feb 05, 2021 Time Seen by Provider: 20:45 Attending Physician Jammie Mancini MD Admitting Physician Katie Cabrera MD Consult Allergies and Home Medications Allergies Coded Allergies: latex (Verified Allergy, Unknown, Hives, 02/04/21) shrimp (Verified Allergy, Unknown, 10/31/19) Patient Home Medication List Home Medication List Reviewed: Yes Acetaminophen (Tylenol Extra Strength) 500 Mg Tablet, 1,000 MG PO Q8H, (Reported) Entered as Reported by: JOSUE HART on 02/04/211933 Last Action: Reviewed Azithromycin (Zithromax) 250 Mg Tablet, 250 MG PO UD, (Reported) Entered as Reported by: JOSUE HART on 02/04/211933 Last Action: Reviewed Cetirizine HCl (Zyrtec) 10 Mg Tablet, 10 MG PO DAILY, (Reported) Entered as Reported by: JOSUE HART on 02/04/211933 Last Action: Reviewed Guaifenesin/Dextromethorphan (Robitussin Cpllu-Ijmnv-Bkhv Dm) 1 Each Capsule, 1 EACH PO, (Reported) Entered as Reported by: JOSUE HART on 02/04/211933 Last Action: Reviewed Hydroxyzine HCl (Hydroxyzine HCl) 10 Mg Tablet, 10 MG PO DAILY PRN for ANXIETY, (Reported) Entered as Reported by: JOSUE HART on 02/04/211933 Last Action: Reviewed Montelukast Sodium (Singulair) 10 Mg Tablet, 10 MG PO DAILY, (Reported) Entered as Reported by: JOSUE HATR on 02/04/211933 Last Action: Reviewed Prednisone (Prednisone) 10 Mg Tab, 20 MG PO DAILY, (Reported) Entered as Reported by: JOSUE HART on 02/04/211933 Last Action: Reviewed Vit W-Ca,Fe,FA(<1 mg) ( Vitamins) 1 Each Tablet, 1 EACH PO DAILY, (Reported) Entered as Reported by: JOSUE HART on 02/04/211933 Last Action: Reviewed Discontinued Medications Hydrocodone/Acetaminophen (Hydrocodone-Acetamin 5-325 mg) 1 Each Tablet, 1 TAB PO Q6H PRN for PAIN-MODERATE (5-7) Discontinued Reason: No Longer Taking Prescribed by: AUTUMN WOLF on 06/24/205 Last Action: Discontinued Hydroxyzine HCl (Hydroxyzine HCl) 25 Mg Tablet, (Reported) Discontinued Reason: No Longer Taking Entered as Reported by: DEANNE OBANDO on 06/24/20830 Last Action: Discontinued Nitrofurantoin Macrocrystal (Nitrofurantoin) 100 Mg Capsule, 100 MG PO BID Discontinued Reason: No Longer Taking Prescribed by: AUTUMN WOLF on 06/24/201230 Last Action: Discontinued Norethindrone (Norethindrone) 0.35 Mg Tablet, (Reported) Discontinued Reason: No Longer Taking Entered as Reported by: DEANNE OBANDO on 06/24/20830 Last Action: Discontinued Ondansetron (Ondansetron Odt) 4 Mg Tab.rapdis, 4 MG PO Q6H PRN for NAUSEA/VOMITING Discontinued Reason: No Longer Taking Prescribed by: AUTUMN WOLF on 06/24/201223 Last Action: Discontinued Promethazine HCl (Promethazine Tablet) 25 Mg Tablet, (Reported) Discontinued Reason: No Longer Taking Entered as Reported by: DEANNE OBANDO on 06/24/20830 Last Action: Discontinued Tamsulosin HCl (Flomax) 0.4 Mg Cap, 0.4 MG PO DAILY Discontinued Reason: No Longer Taking Prescribed by: AUTUMN WOLF on 06/24/201223 Last Action: Discontinued [Lorazepam] , (Reported) Discontinued Reason: No Longer Taking Entered as Reported by: DEANNE OBANDO on 06/24/20830 Last Action: Discontinued Past Hyjhtag-Tnjzak-Bhtlla Hx Patient Social History Smoking Status: Never a Smoker 2nd Hand Smoke Exposure: No Recent Hopitalizations: No Immunizations Up To Date Tetanus Booster (TDap): Unknown Pediatric: No Date of Influenza Vaccine: Nov 22, 2020 Seasonal Allergies Seasonal Allergies: Yes Surgeries Yes (HERNIA X3, LAPAROSCOPY (ENDOMETRIOSIS) X2) Abdominal Respiratory Yes Cardiovascular No Neurological Yes Headaches /Migraines Reproductive System Expected Date of Delivery: Mar 31, 2021 Hx : 2 Hx Para: 0 Hx Total # of Abortions (Spona: 1 Sexually Transmitted Disease: No HIV/AIDS: No Female Reproductive Disorders: Endometriosis Genitourinary No (INTERSTITIAL CYSTITIS) Gastrointestinal Yes Abdominal Hernia Musculoskeletal Yes (R KNEE TORN MCL) Endocrine History of Endocrine Disorders: No HEENT History of HEENT Disorders: Yes (GLASSES/CONTACTS) Loss of Vision: Denies Hearing Impairment: Denies Cancer No Psychosocial History of Psychiatric Problem: Yes Behavioral Health Disorders: Anxiety Integumentary History of Skin or Integumenta: No Blood Transfusions History of Blood Disorders: No Adverse Reaction to a Blood Tr: No (N/A) Review of Systems Constitutional: No fever EENTM: nose congestion Respiratory: cough Cardiovascular: No chest pain Gastrointestinal: No abdominal pain Genitourinary: no symptoms reported Physical Exam Vital Signs Vital Signs - First Documented 02/04/21 02/04/21 18:40 21:35 Temp 36.1 Pulse 77 Resp 18 B/P (MAP) 125/63 (83) Pulse Ox 97 O2 Delivery Room Air Capillary Refill : Less Than 3 Seconds Height, Weight, BMI Height: 5'6.00" Weight: 130lbs. oz. 58.406342cp; 27.16 BMI Method:Stated General Appearance: No Apparent Distress, WD/WN Respiratory: No Accessory Muscle Use Gastrointestinal: Other (gravid, nontender) Extremity: No Pedal Edema Neurologic/Psychiatric: Alert, Normal Mood/Affect Skin: Normal Color, Warm/Dry Short Stay Diagnosis Discharge Diagnosis-Short Stay Admission Diagnosis: contractions Third trimester 32 weeks gestation Final Discharge Diagnosis: contractions resolved with IVF Cervical length 4 cm 32 weeks gestation Conclusion Labs Laboratory Tests 02/04/21 18:55: Urine Color YELLOW, Urine Clarity CLEAR, Urine pH 7.0, Urine Specific [place] <=1.005, Urine Protein NEGATIVE, Urine Glucose (UA) NEGATIVE, Urine Ketones NEGATIVE, Urine Nitrite NEGATIVE, Urine Bilirubin NEGATIVE, Urine Urobilinogen 0.2, Urine Leukocyte Esterase NEGATIVE, Urine RBC (Auto) NEGATIVE, Urine RBC NONE, Urine WBC NONE, Urine Squamous Epithelial Cells RARE, Urine Crystals NONE, Urine Bacteria TRACE, Urine Casts NONE, Urine Mucus NEGATIVE, Urine Culture Indicated NO Conclusion/Plan Received fluid bolus and IVF overnight with resolution of contractions and ultrasound showed cervical length of 4 cm, so she was discharged home. JAMMIE MANCINI MD Feb 05, 2021 10:33
== END 2021-02-05 09:55 | disposition home or self-care (01) ==
LOC: WSo 18:34 → LDRP 18:34 → WSo 02-05 09:47 → LDRP 02-05 09:50
PROVIDERS: ADMIT Family Medicine; ATTEND Family Medicine
DX: O60.03 Preterm labor without delivery, third trimester (principal); Z3A.32 32 weeks gestation of pregnancy; J40 Bronchitis, not specified as acute or chronic; N80.9 Endometriosis, unspecified; F41.9 Anxiety disorder, unspecified; Z79.2 Long term (current) use of antibiotics; Z79.899 Other long term (current) drug therapy
CPT/HCPCS: 76815; 81000; G0378

== ENCOUNTER 2021-02-07 15:01 | Outpatient (CLI) | payer MEDICAID ==
[~2021-02-07] VITALS: Ht 167.7 cm; Wt 75.7 kg
[~2021-02-07 15:01] MED LIST changes: +ACET-2267 PO; +AZIT250T PO; +CETI10TA49 PO; +GUAI1CAP52 PO; +HYDR-3584 PO; +MONT10TA21 PO; +PRD10T PO; +PREN1TAB79 PO
[2021-02-07] MEDS: LACTATED RINGERS 1,000 ML IV SCH ×2 (15:52→17:03)
[2021-02-07 15:59] LABS: HEMATOCRIT 32 % (35-52); HEMOGLOBIN 10.6 g/dL (11.5-16.0); MEAN CORPUSCULAR HEMOGLOBIN 29 pg (25-34); MEAN CORPUSCULAR HGB CONC 33 g/dL (32-36); MEAN CORPUSCULAR VOLUME 88 fL (80-99); MEAN PLATELET VOLUME 9.3 fL (9.0-12.2); PLATELET COUNT 313 10^3/uL (130-400); WHITE BLOOD COUNT 11.3 10^3/uL (4.3-11.0)
[2021-02-07 16:00] LABS: BILIRUBIN,URINE NEGATIVE (NEGATIVE); CLARITY,URINE CLEAR; COLOR,URINE YELLOW; GLUCOSE, URINE (UA) NEGATIVE (NEGATIVE); KETONES,URINE NEGATIVE (NEGATIVE); LEUKOCYTE ESTERASE ,URINE NEGATIVE (NEGATIVE); NITRITE,URINE NEGATIVE (NEGATIVE); PROTEIN,URINE NEGATIVE (NEGATIVE)
[2021-02-07 16:01] VITALS: BP 134/67
[2021-02-07 16:23] LABS: ALBUMIN 3.6 GM/DL (3.2-4.5); BILIRUBIN,TOTAL 0.3 MG/DL (0.1-1.0); CALCIUM 8.4 MG/DL (8.5-10.1); CREATININE SERUM 0.62 MG/DL (0.60-1.30); POTASSIUM 3.6 MMOL/L (3.6-5.0); TOTAL PROTEIN 6.3 GM/DL (6.4-8.2)
[2021-02-07] MEDS ORDERED: BETAMETHASONE ACE/NA PHOS 6 MG/ML (CELESTONE SOLUSPAN) IM SCH (16:30)
[2021-02-07] MEDS ORDERED: TERBUTALINE INJ 1 MG/ML (BRETHINE) AMP SC NR (16:30)
[2021-02-07 20:50] VITALS: BP 121/62
--- NOTE | 2021-02-08 08:49 | Diagnostic Imaging Report ---
Indication: Follow-up cervical length, contractions. Comparison: 02/05/2021. Discussion: Limited transabdominal and transvaginal sonographic evaluation of the pelvis was performed. Cervix is closed and measures up to 4 7 m in length. Placenta is located anteriorly with no placenta previa. Normal amniotic fluid index measuring 14.7 cm. presentation is cephalic. Impression: 1. presentation is cephalic. Cervix measures up to 4 cm. Dictated by: Dictated on workstation # [id number]
--- NOTE | 2021-02-10 08:04 | Physician Query-Final Dx ---
REG02/10/21 0804: Clinic Account Progress/Dx Physician Query: Please give diagnosis Please include # weeks gestation Date of Service Feb 07, 2021 at 15:01 JAMMIE MANCINI MD 02/10/21 0900: Clinic Account Progress/Dx DIAGNOSIS: Diagnosis 32 weeks gestation contractions without labor REG,FebFeb 10, 2021 08:04 JAMMIE MANCINI MD Feb 10, 2021 09:00
== END 2021-02-07 20:52 | disposition home or self-care (01) ==
LOC: WSo 15:01 → LDRP 15:02 → WSo 20:52
PROVIDERS: ATTEND Family Medicine
DX: O60.03 Preterm labor without delivery, third trimester (principal); Z3A.32 32 weeks gestation of pregnancy
CPT/HCPCS: 76815; 80053; 81002; 85027; 96360; 96361; 96372; G0463; 36415; 99213

== ENCOUNTER → 2021-02-08 | Outpatient (CLI) | payer MEDICAID ==
[~2021-02-08] MED LIST changes: +BETAMETHASONE ACE/NA PHOS 6 MG/ML (CELESTONE SOLUSPAN) IM SCH; +BETAMETHASONE ACE/NA PHOS 6 MG/ML (CELESTONE SOLUSPAN) ONE; +NIFE30TA2 PO
== END ==
LOC: WSo 18:21
PROVIDERS: ATTEND Family Medicine
DX: O36.0190 Maternal care for anti-D [Rh] antibodies, unspecified trimester, not applicable or unspecified (principal); Z3A.00 Weeks of gestation of pregnancy not specified
CPT/HCPCS: 96372

== ENCOUNTER 2021-02-13 21:26 | Outpatient (CLI) | payer MEDICAID ==
[~2021-02-13] VITALS: Ht 167.7 cm; Wt 75.7 kg
[~2021-02-13 21:26] MED LIST changes: -BETAMETHASONE ACE/NA PHOS 6 MG/ML (CELESTONE SOLUSPAN) IM SCH; -BETAMETHASONE ACE/NA PHOS 6 MG/ML (CELESTONE SOLUSPAN) ONE; -NIFE30TA2 PO
[2021-02-13 21:46] LABS: BILIRUBIN,URINE NEGATIVE (NEGATIVE); CLARITY,URINE CLEAR; COLOR,URINE YELLOW; GLUCOSE, URINE (UA) NEGATIVE (NEGATIVE); KETONES,URINE NEGATIVE (NEGATIVE); LEUKOCYTE ESTERASE ,URINE NEGATIVE (NEGATIVE); NITRITE,URINE NEGATIVE (NEGATIVE); PH,URINE 6.5 (5-9); PROTEIN,URINE NEGATIVE (NEGATIVE)
[2021-02-13 21:48] VITALS: BP 135/66
[2021-02-13 21:56] VITALS: BP 135/66
[2021-02-13 22:07] LABS: AMORPHOUS SEDIMENT,UR RARE AMOR URATES /LPF; BACTERIA,URINE TRACE /HPF; RBC,URINE 0-2 /HPF
[2021-02-13] MEDS ORDERED: NS IV 1000 ML 1,000 ML IV SCH (22:30)
--- NOTE | 2021-02-14 08:03 | Physician Query-Final Dx ---
Clinic Account Progress/Dx Physician Query: Please give diagnosis Please include # weeks gestation Date of Service Feb 13, 2021 at 21:26 WHEAT,FebFeb 14, 2021 08:03
== END 2021-02-13 23:41 ==
LOC: WSo 21:26 → LDRP 21:30 → WSo 23:41
PROVIDERS: ATTEND Family Medicine
DX: O62.9 Abnormality of forces of labor, unspecified (principal); Z3A.33 33 weeks gestation of pregnancy
CPT/HCPCS: 81000; 96360; G0463; 99213

== ENCOUNTER 2021-02-17 14:10 | Outpatient (CLI) | payer MEDICAID ==
[~2021-02-17] VITALS: Ht 167.7 cm; Wt 76.0 kg
[2021-02-17 14:58] LABS: BILIRUBIN,URINE NEGATIVE (NEGATIVE); CLARITY,URINE CLEAR; COLOR,URINE YELLOW; GLUCOSE, URINE (UA) NEGATIVE (NEGATIVE); KETONES,URINE NEGATIVE (NEGATIVE); LEUKOCYTE ESTERASE ,URINE NEGATIVE (NEGATIVE); NITRITE,URINE NEGATIVE (NEGATIVE); PROTEIN,URINE NEGATIVE (NEGATIVE)
[2021-02-17 15:22] LABS: BACTERIA,URINE FEW /HPF; WBC,URINE 0-2 /HPF
[2021-02-17] MEDS ORDERED: TERBUTALINE INJ 1 MG/ML (BRETHINE) AMP ONE (15:28)
[2021-02-17] MEDS ORDERED: TERBUTALINE INJ 1 MG/ML (BRETHINE) AMP SC ONE (15:30)
[2021-02-17 15:42] VITALS: BP 137/72
[2021-02-17 15:55] VITALS: BP 137/72
--- NOTE | 2021-02-18 09:40 | Physician Query-Final Dx ---
Clinic Account Progress/Dx Physician Query: Please give diagnosis Please include # weeks gestation Date of Service Feb 17, 2021 at 14:10 WHEAT,FebFeb 18, 2021 09:40
== END 2021-02-17 17:00 | disposition home or self-care (01) ==
LOC: LDRP 14:10 → WSo 14:10
PROVIDERS: ATTEND Family Medicine
DX: O60.00 Preterm labor without delivery, unspecified trimester (principal); Z3A.00 Weeks of gestation of pregnancy not specified
CPT/HCPCS: 81000; 87088; 96372; 99213

== ENCOUNTER 2021-02-19 10:18 | Outpatient (CLI) | payer MEDICAID ==
[~2021-02-19] VITALS: Ht 167 cm; Wt 76.0 kg
[2021-02-19 10:45] VITALS: BP 129/77
[2021-02-19 11:08] VITALS: BP 129/77
[2021-02-19 11:24] LABS: BILIRUBIN,URINE NEGATIVE (NEGATIVE); CLARITY,URINE CLEAR; COLOR,URINE YELLOW; GLUCOSE, URINE (UA) NEGATIVE (NEGATIVE); KETONES,URINE NEGATIVE (NEGATIVE); LEUKOCYTE ESTERASE ,URINE NEGATIVE (NEGATIVE); NITRITE,URINE NEGATIVE (NEGATIVE); PH,URINE 6.5 (5-9); PROTEIN,URINE NEGATIVE (NEGATIVE)
[2021-02-19 11:44] LABS: BACTERIA,URINE TRACE /HPF; RBC,URINE RARE /HPF; WBC,URINE RARE /HPF
[2021-02-19] MEDS ORDERED: NIFE30TA2 PO (12:13)
[2021-02-19 12:22] VITALS: BP 129/77
--- NOTE | 2021-02-20 08:09 | Physician Query-Final Dx ---
Clinic Account Progress/Dx Physician Query: Please give diagnosis Please include # weeks gestation Date of Service Feb 19, 2021 at 10:18 WHEAT,FebFeb 20, 2021 08:09
== END 2021-02-19 12:22 | disposition home or self-care (01) ==
LOC: WSo 10:18 → LDRP 10:19 → WSo 12:22
PROVIDERS: ATTEND Family Medicine
DX: O42.90 Premature rupture of membranes, unspecified as to length of time between rupture and onset of labor, unspecified weeks of gestation (principal); Z3A.00 Weeks of gestation of pregnancy not specified
CPT/HCPCS: 81000; 84112

== ENCOUNTER 2021-03-27 21:52 | Outpatient (CLI) | payer MEDICAID ==
[~2021-03-27] VITALS: Ht 167.7 cm; Wt 77.6 kg
[~2021-03-27 21:52] MED LIST changes: +NIFE30TA2 PO
[2021-03-27 22:28] VITALS: BP 117/76
[2021-03-27 22:37] VITALS: BP 117/76
[2021-03-27 22:37] LABS: BILIRUBIN,URINE NEGATIVE (NEGATIVE); CLARITY,URINE CLEAR; COLOR,URINE YELLOW; GLUCOSE, URINE (UA) NEGATIVE (NEGATIVE); KETONES,URINE NEGATIVE (NEGATIVE); LEUKOCYTE ESTERASE ,URINE NEGATIVE (NEGATIVE); NITRITE,URINE NEGATIVE (NEGATIVE); PH,URINE 6.5 (5-9); PROTEIN,URINE NEGATIVE (NEGATIVE)
[2021-03-27 22:41] VITALS: BP 117/67
[2021-03-27 22:51] LABS: BACTERIA,URINE MODERATE /HPF
--- NOTE | 2021-03-28 09:31 | Physician Query-Final Dx ---
03/28/21 0931: Clinic Account Progress/Dx Physician Query: Please give diagnosis Please include # weeks gestation Date of Service Mar 27, 2021 at 21:52 JAMMIE MANCINI MD 03/28/21 1650: Clinic Account Progress/Dx DIAGNOSIS: Diagnosis 39 weeks gestation Contractions without active labor ,FebMar 28, 2021 09:31 JAMMIE MANCINI MD Mar 28, 2021 16:50
== END 2021-03-27 23:40 | disposition home or self-care (01) ==
LOC: WSo 21:52 → LDRP 21:52 → WSo 23:40
PROVIDERS: ATTEND Family Medicine
DX: O62.9 Abnormality of forces of labor, unspecified (principal); Z3A.39 39 weeks gestation of pregnancy
CPT/HCPCS: 81000; 87088; G0463; 99213

== ENCOUNTER 2021-04-02 18:30 | Inpatient (IN) | payer MEDICAID ==
[~2021-04-02] VITALS: Ht 169 cm; Wt 77.8 kg
[2021-04-02] VITALS (9 sets, daily range): BP systolic 111–130; BP diastolic 60–76
[2021-04-02] MEDS ORDERED: AMPICILLIN FOR IV USE 2,000 MG in NS (IVPB) 50 ML IV ONE (19:41)
[2021-04-02] MEDS ORDERED: CATHETER FLUSH 10 ML SYR IV PRN (19:45)
[2021-04-02] MEDS ORDERED: MINERAL OIL 30 ML OIL TOP PRN (19:45)
[2021-04-02] MEDS ORDERED: AMPICILLIN 2,000 MG/14.8 ML (IV USE) ONE (19:54)
[2021-04-02] MEDS ORDERED: NS (IVPB) 50 ML ONE (19:54)
[2021-04-02] MEDS ORDERED: LACTATED RINGERS 1,000 ML IV ONE (19:55)
[2021-04-02] MEDS ORDERED: D5 LR IV SOLUTION 1,000 ML IV ONE (19:55)
[2021-04-02] MEDS ORDERED: TERBUTALINE INJ 1 MG/ML (BRETHINE) AMP SC PRN (20:00)
[2021-04-02] MEDS ORDERED: LACTATED RINGERS 1,000 ML IV SCH (20:00)
[2021-04-02] MEDS ORDERED: ZOLPIDEM 5 MG (AMBIEN) TAB PO PRN (20:00)
[2021-04-02] MEDS ORDERED: BUTORPHANOL INJ 2 MG/ML (STADOL) VIAL IV ONE (20:00)
[2021-04-02 20:09] LABS: BASOPHILS % (AUTO) 0 % (0-10); EOSINOPHILS # (AUTO) 0.1 10^3/uL (0.0-0.3); EOSINOPHILS % (AUTO) 1 % (0-10); HEMATOCRIT 32 % (35-52); HEMOGLOBIN 10.6 g/dL (11.5-16.0); LYMPHOCYTES % (AUTO) 21 % (12-44); MEAN CORPUSCULAR HEMOGLOBIN 29 pg (25-34); MEAN CORPUSCULAR HGB CONC 33 g/dL (32-36); MEAN CORPUSCULAR VOLUME 87 fL (80-99); MEAN PLATELET VOLUME 9.6 fL (9.0-12.2); MONOCYTES # (AUTO) 0.6 10^3/uL (0.0-1.0); MONOCYTES % (AUTO) 7 % (0-12); NEUTROPHILS # (AUTO) 6.7 10^3/uL (1.8-7.8); NEUTROPHILS % (AUTO) 71 % (42-75); PLATELET COUNT 215 10^3/uL (130-400); WHITE BLOOD COUNT 9.4 10^3/uL (4.3-11.0)
[2021-04-02] MEDS: D5 LR IV SOLUTION 1,000 ML IV SCH (20:31)
[2021-04-03] VITALS (58 sets, daily range): BP systolic 94–143; BP diastolic 51–89
[2021-04-03] MEDS: AMPICILLIN FOR IV USE 1,000 MG in NS (IVPB) 50 ML IV SCH ×3 (01:23→09:43)
[2021-04-03] MEDS ORDERED: BUTORPHANOL INJ 2 MG/ML (STADOL) VIAL ONE (05:22)
[2021-04-03] MEDS: D5 LR IV SOLUTION 1,000 ML IV SCH (05:45)
[2021-04-03] MEDS ORDERED: LACTATED RINGERS 1,000 ML IV SCH ×2 (06:43→09:30)
[2021-04-03] MEDS ORDERED: fentaNYL 2 mcg/ml BUPIVA 0.125 100 ML ONE (07:49)
[2021-04-03] MEDS ORDERED: fentaNYL INJ 100 MCG/2 ML AMP ONE (08:23)
[2021-04-03] MEDS ORDERED: BUPIVACAINE 0.25% 30 ML (SENSORCAINE) VIAL ONE (08:23)
[2021-04-03] MEDS ORDERED: ONDANSETRON 4 MG/2 ML (SDV) Z0FRAN ONE ×2 (09:20→12:08)
[2021-04-03] MEDS ORDERED: diphenhydrAMINE 50 MG/ML INJ (BENADRYL) IV PRN (09:30)
[2021-04-03] MEDS ORDERED: NALOXONE 0.4 MG/ML 1 ML (NARCAN) VIAL IV PRN ×4 (09:30→12:45)
[2021-04-03] MEDS ORDERED: EPIDURAL (fentaNYL 2 MCG/ML BUPIVA 0.125%)100 ML BAG EPI PRN (09:30)
[2021-04-03] MEDS ORDERED: ONDANSETRON 4 MG/2 ML (SDV) Z0FRAN IV PRN (09:30)
[2021-04-03] MEDS ORDERED: METOCLOPRAMIDE INJ 10 MG/2 ML (REGLAN) IV PRN (09:30)
[2021-04-03] MEDS ORDERED: fentaNYL 2 mcg/ml BUPIVA 0.125 100 ML EPI PRN (10:00)
[2021-04-03] MEDS ORDERED: METOCLOPRAMIDE INJ 10 MG/2 ML (REGLAN) IV ONE (11:15)
[2021-04-03] MEDS ORDERED: LACTATED RINGERS 1,000 ML IV PRN ×2 (11:15)
[2021-04-03] MEDS ORDERED: CITRIC ACID/SOB CIT (BICITRA) 30 ML UDC PO ONE (11:15)
[2021-04-03] MEDS ORDERED: CATHETER FLUSH 10 ML SYR IV PRN (11:15)
[2021-04-03] MEDS ORDERED: FAMOTIDINE 20MG/2ML IV (PEPCID) IV ONE (11:15)
[2021-04-03] MEDS ORDERED: BUPIVACAINE 0.5% 30 ML (SENSORCAINE) VIAL ONE (11:22)
--- NOTE | 2021-04-03 11:24 | History & Physical-OB ---
OB - Chief Complaint & HPI Date/Time Date of Admission: Date of Admission: Apr 02, 2021 at 18:43 Date seen by a Provider: Apr 03, 2021 Time Seen by a Provider: 08:35 Chief Complaint/History OB-Reason for Admission/Chief: Induction of Labor Hx : 1 Hx Para: 0 Expected Date of Delivery: Mar 31, 2021 Gestational Age in Weeks: 40 Gestational Age in Days: 2 Indication for induction: post dates History of Labs A+, Ab neg, Rub Imm HIV/RPR/HepB/C NR Normal 1 hr GTT GBS Pos Allergies and Home Medications Allergies Coded Allergies: latex (Verified Allergy, Unknown, Hives, 02/04/21) shrimp (Verified Allergy, Unknown, 10/31/19) Patient Home Medication List Home Medication List Reviewed: Yes Acetaminophen (Tylenol Extra Strength) 500 Mg Tablet, 1,000 MG PO Q8H, (Reported) Entered as Reported by: JOSUE HART on 02/04/211933 Cetirizine HCl (Zyrtec) 10 Mg Tablet, 10 MG PO DAILY, (Reported) Entered as Reported by: JOSUE HART on 02/04/211933 Montelukast Sodium (Singulair) 10 Mg Tablet, 10 MG PO DAILY, (Reported) Entered as Reported by: JOSUE HART on 02/04/211933 Nifedipine (Procardia Xl) 30 Mg Tab.er.24, 10 MG PO DAILY, (Reported) Entered as Reported by: FABRICE POWER on 02/19/21 121 Vit W-Ca,Fe,FA(<1 mg) ( Vitamins) 1 Each Tablet, 1 EACH PO DAILY, (Reported) Entered as Reported by: JOSUE HART on 02/04/211933 OB - History Hx of Present Care: Yes Ultrasounds: Normal mid trimester US Obstetrical Complications: None Medical Complications: None Delivery History Adverse Rxn to Tranfusion: No (N/A) Patient Past Medical History Asthma Social History/Family History Alcohol Use: Denies Use Recreational Drug Use: No Smoking Cessation: Never smoker 2nd Hand Smoke Exposure: No Immunizations Influenza Vaccine Up-to-Date: Yes; Up-to-Date First/Initial COVID19 Vaccine: 03/2020 Second COVID19 Vaccination: 04/2020 COVID19 Vaccine Photoengraving Sketch Maker: Moderna Tetanus Booster (TDap): Unknown Rubella: immune RPR/VDRL: Negative GBS Status: Positive HBsAG: Negative OB - Admission Exam Physical Exam Vitals: Vital Signs 04/03/21 04/03/21 08:50 08:54 Temp 36.7 Pulse 70 Resp 18 B/P (MAP) 128/72 (90) Pulse Ox 98 O2 Delivery Room Air HEENT: NCAT Heart: Rhythm Normal Lungs: Clear Abdomen: Gravid Cervical Dilatation: 2cm Effacement: 75% Station: -2 Membranes: Intact Accelerations: No Accelerations Decelerations: No Decelerations Short Term Variability: Present Mcfp Variability: Average (6-25) Contractions on Admission: < 5 Minutes Apart Intensity: Moderate Labs Laboratory Tests Test 04/02/21 19:59 Range/Units White Blood Count 9.4 4.3-11.0 10^3/uL Red Blood Count 3.69 L 3.80-5.11 10^6/uL Hemoglobin 10.6 L 11.5-16.0 g/dL Hematocrit 32 L 35-52 % Mean Corpuscular Volume 87 80-99 fL Mean Corpuscular Hemoglobin 29 25-34 pg Mean Corpuscular Hemoglobin Concent 33 32-36 g/dL Red Cell Distribution Width 12.3 10.0-14.5 % Platelet Count 215 130-400 10^3/uL Mean Platelet Volume 9.6 9.0-12.2 fL Immature Granulocyte % (Auto) 0 % Neutrophils (%) (Auto) 71 42-75 % Lymphocytes (%) (Auto) 21 12-44 % Monocytes (%) (Auto) 7 0-12 % Eosinophils (%) (Auto) 1 0-10 % Basophils (%) (Auto) 0 0-10 % Neutrophils # (Auto) 6.7 1.8-7.8 10^3/uL Lymphocytes # (Auto) 2.0 1.0-4.0 10^3/uL Monocytes # (Auto) 0.6 0.0-1.0 10^3/uL Eosinophils # (Auto) 0.1 0.0-0.3 10^3/uL Basophils # (Auto) 0.0 0.0-0.1 10^3/uL Immature Granulocyte # (Auto) 0.0 0.0-0.1 10^3/uL OB - Assessment/Plan/Diagnosis Assessment Assessment: induction of labor Admission Dx Third Trimester 40 week gestation GBS Positive Admission Status: Inpatient Order (span 2 midnights) Reason for Inpatient Admission: Labor Plan Other Plan 25 yo G1 @ 40.3 wga here for IOL for post dates Plan GBS Positive: Started on Ampicillin last night Completed Cytotec protocol AROM this AM JANNETH NAVARRETE MD Apr 03, 2021 11:24
[2021-04-03] MEDS ORDERED: WATER (STERILE) FOR INJECTION 10 ML ONE (11:25)
[2021-04-03] MEDS ORDERED: AZITHROMYCIN INJECTION 500 MG/5 ML VIAL ONE (11:25)
[2021-04-03] MEDS ORDERED: ceFAZolin 2 GM IV Premixed 50 ML ONE (11:25)
--- NOTE | 2021-04-03 11:27 | Labor Progress Note ---
Labor Progress Note Labor Progress Note Date Seen by Provider: Apr 03, 2021 Time Seen by Provider: 11:00 Subjective: Pt denies complaints. Called to floor for concerns regarding monitor strip. Objective: SVE: /-2 FM: Psuedo Sinusodal strip, good variability, no accelerations, no decelerations Meconium stained fluid @ AROM Assessment/Plan: Mercy Carroll is a (25 /Para / ,Gestational Age (wks)40.3 here for IOL CEFM/TOCO Unable to start Pitocin due to FM, No cervical change Discussed with parents and due to meconium fluid, distress and minimal change in cervix will proceed with primary C/section Dr Olivas notified and agrees with plan Vitals - Labs Vital Signs - I&O Vital Signs Date Time Temp Pulse Resp B/P (MAP) Pulse Ox O2 Delivery O2 Flow Rate FiO2 04/03/21 08:54 70 18 128/72 (90) 98 Room Air 04/03/21 08:50 36.7 04/03/21 08:47 65 18 116/64 (81) 97 Room Air 04/03/21 08:44 69 18 114/70 (85) 97 Room Air 04/03/21 08:41 75 18 111/67 (82) 98 Room Air 04/03/21 08:38 63 18 115/65 (82) 97 Room Air 04/03/21 08:35 73 18 143/62 (89) 98 Room Air 04/03/21 08:32 70 18 139/71 (93) 99 Room Air 04/03/21 08:30 69 18 125/74 (91) 97 Room Air 04/03/21 08:17 107/62 (77) 04/03/21 08:11 70 18 116/73 (87) Room Air 04/03/21 07:51 36.5 04/03/21 07:47 68 18 126/76 (93) Room Air 04/03/21 07:32 71 18 103/74 (84) Room Air 04/03/21 07:17 68 18 124/71 (88) Room Air 04/03/21 07:00 74 18 131/83 (99) Room Air 04/03/21 06:45 68 18 130/78 (95) Room Air 04/03/21 06:35 72 18 123/72 (89) 96 Room Air 04/03/21 06:15 58 18 123/89 (100) 96 Room Air 04/03/21 06:00 53 18 119/60 (79) 96 Room Air 04/03/21 05:50 36.4 59 18 112/70 (84) Room Air 04/03/21 05:15 68 18 104/51 (68) Room Air 04/03/21 05:00 72 18 118/77 (91) Room Air 04/03/21 04:45 69 18 113/67 (82) Room Air 04/03/21 04:15 75 18 102/57 (72) Room Air 04/03/21 04:00 75 18 100/52 (68) Room Air 04/03/21 03:45 63 18 101/57 (72) Room Air 04/03/21 03:30 64 18 96/51 (66) Room Air 04/03/21 03:15 65 18 104/58 (73) Room Air 04/03/21 03:00 68 18 104/60 (75) Room Air 04/03/21 01:45 71 18 103/74 (84) Room Air 04/03/21 01:30 69 18 116/65 (82) Room Air 04/03/21 01:15 36.4 76 18 127/76 (93) Room Air 04/03/21 01:00 64 18 114/69 (84) Room Air 04/03/21 00:45 65 18 130/60 (83) Room Air 04/03/21 00:30 64 18 118/69 (85) Room Air 04/03/21 00:15 63 18 114/61 (78) Room Air 04/03/21 00:00 73 18 112/61 (78) Room Air 04/02/21 23:45 64 18 116/61 (79) Room Air 04/02/21 23:30 67 18 111/60 (77) Room Air 04/02/21 23:15 75 18 115/65 (82) Room Air 04/02/21 23:00 69 18 112/70 (84) Room Air 04/02/21 22:45 81 18 122/75 (91) Room Air 04/02/21 22:15 72 18 122/70 (87) Room Air 04/02/21 22:00 76 18 130/72 (91) Room Air 04/02/21 21:45 82 18 123/76 (92) 97 Room Air 04/02/21 20:55 36.9 84 18 128/68 (88) 97 Room Air 04/02/21 20:55 36.9 84 18 97 Room Air Labs Laboratory Tests 04/02/21 19:59: White Blood Count 9.4, Red Blood Count 3.69L, Hemoglobin 10.6L, Hematocrit 32L, Mean Corpuscular Volume 87, Mean Corpuscular Hemoglobin 29, Mean Corpuscular Hemoglobin Concent 33, Red Cell Distribution Width 12.3, Platelet Count 215, Mean Platelet Volume 9.6, Immature Granulocyte % (Auto) 0, Neutrophils (%) (Auto) 71, Lymphocytes (%) (Auto) 21, Monocytes (%) (Auto) 7, Eosinophils (%) (Auto) 1, Basophils (%) (Auto) 0, Neutrophils # (Auto) 6.7, Lymphocytes # (Auto) 2.0, Monocytes # (Auto) 0.6, Eosinophils # (Auto) 0.1, Basophils # (Auto) 0.0, Immature Granulocyte # (Auto) 0.0 JANNETH NAVARRETE MD Apr 03, 2021 11:27
[2021-04-03] MEDS ORDERED: ceFAZolin 2 GM IV Premixed 50 ML IV NR (11:30)
[2021-04-03] MEDS ORDERED: AZITHROMYCIN INJECTION 500 MG in NS (IVPB) 250 ML IV ONE (11:30)
[2021-04-03] MEDS ORDERED: LIDOCAINE PF 2% 5 ML (XYLOCAINE) VIAL ONE (12:08)
[2021-04-03] MEDS ORDERED: KETOROLAC 30 MG/ML VIAL ONE (12:08)
[2021-04-03] MEDS ORDERED: BENZOCAINE/MENTHOL (DERMOPLAST) 56 ML CAN TP PRN (12:30)
[2021-04-03] MEDS ORDERED: MEASLES,MUMPS,RUBELLA 1 EA INJ SQ ONE (12:30)
[2021-04-03] MEDS ORDERED: TETANUS,DIPTH,PERTUSS P/F (BOOSTRIX) 0.5 ML VIAL IM ONE (12:30)
[2021-04-03] MEDS ORDERED: WITCH HAZEL(TUCKS) 40 EA JAR TOP PRN (12:30)
[2021-04-03] MEDS ORDERED: OXYTOCIN PRE-MIX DRIP 500 ML IV SCH ×2 (12:30→12:45)
--- NOTE | 2021-04-03 12:35 | Cesarean Section Operative ---
Procedure Procedure Note Pre-operative Diagnosis: Mercy Carroll is a 25 /Para 1 / 0, Gestational Age 40 3/7 weeks with failure to progress/non reassuring hearttones, meconium Post-operative Diagnosis: same, OP presentation, nuchal cord x 2, meconium stai siena fluid Procedure: Primary low transverse section Physician: CHRISTOPH VALVERDE Estimated blood loss: 500 mL Disposition: stable Findings: Viable female , Apgars 7/9, weight6#9 ounces, intact placenta, 3vc, normal appearing uterus, tubes, and ovaries. Indications:Mercy Carroll is a 25 /Para 1 / 0,Gestational Age 40 3/7 weeks with failure to progress/non reassuring hearttones, meconium I was consulted by Dr. Cabrera to evaluate her patient for section. She was induced yesterday (04/02/21) due to post maturity (40 2/7 weeks). She was gi sung misoprostol for cervical ripening. Apparently she had stadol and then, shortly after, had pseudosinusoidal heart tracing. There were accelerations and no deceleration. Upon AROM, there was meconium stained fluid. The pseudosinusoidal heart tracing did not resolve despite stadol having been given several hours before. Due to this tracing (category II), as it is remote from delivery, we discussed a primary section. The patient and spouse agree to this plan. Procedure Details: The patient was seen in pre-op and the procedure was discussed with the patient in full, including the risks, benefits, and alternatives. Risks, including bleeding, infection, injury to bowel, bladder, ureter, surrounding tissues, fetus, complications associated with anesthesia, DVT, PE. The patient also questioned whether there may be a complication associated with her umbical hernia mesh repair. We discussed that it is unlikely that there would be issues, but that there is a risk of bowel adhesions and omental adhesions depending on the type of mesh. All questions were answered. The patient was taken to the operating room and a time out was performed, verifying patient and procedure. hearttones had been 110s-120s. however, after she was laid back for prep after the epidural, the hearttones were noted to be in the 80s. Due to this, we did a rapid prep with betadine. The patient has an allergy to shrimp but states she has had betadine used in the past, and does not have an allergy. After epidural anesthesia was found to be adequate by our anesthesia colleagues, the patient was placed in the dorsal supine with leftward tilt for uterine displacement.~ Her abdomen was then prepped and draped in the typical sterile fashion. A Pfannenstiel skin incision was made using a scalpel and carried down through the underlying fascia. The fascia was incised in the midline and tented up using Ankit clamps. On both the inferior and superior fascia side the rectus muscle was dissected off bluntly and sharply using Nair scissors. The peritoneum was identified and entered bluntly in the midline. This was then stretched laterally using manual strength. After entering the abdominal cavity and confirming lack of intraperitoneal adhesions (there were no adhesions associated with the mesh and I could palpate the mesh on the anterior abdominal wall), a large Sam retractor was placed and the lower uterine segment was visualized. A scalpel was utilized to make a low transverse uterine incision. There was minimal green tinged fluid noted. The infant's head was grasped and brought to the level of the incision. Fundal pressure was applied and was delivered without difficulty. Mouth and nares were suctioned with bulb suction. After the umbilical cord was clamped and cut, the infant was handed off to the pediatric staff. A sample of cord blood was then obtained. The placenta was delivered intact via uterine massage. The uterus was cleared of all clots and debris. The uterine incision was closed using 0 Vicryl in a running locked fashion. A second imbricated layer was placed using 0 Vicryl in a running fashion as well. The bilateral tubes and ovaries appeared normal. The abdominal gutters were cleared of all clots and debris. A final check of the uterine incision showed it to be hemostatic. The peritoneum was closed using 3-0 PDS in a running fashion. The fascia was closed with 0 Vicryl in a running fashion. The subcutaneous space was hemostatic, and irrigated. The subcutaneous space was closed with 3-0 Plain in several single interrupted stitches. As I was closing the subcutaneous space, I was notified that I had a patient that was completely dilated without an epidural and was ready to delivery. Due to this, I opted to use skin kael rather than subcuticular suture. The skin edges were reapproximated together and were hemostatic. A pressure dressing was applied. All sponge, lap and needle counts were correct at the end of the procedure per nursing. Vitals - Labs Vital Signs - I&O Vital Signs Date Time Temp Pulse Resp B/P (MAP) Pulse Ox O2 Delivery O2 Flow Rate FiO2 04/03/21 12:19 36.5 16 100/77 (85) 99 Room Air 04/03/21 11:32 65 18 125/78 (94) 99 Room Air 04/03/21 11:17 47 18 119/64 (82) 99 Room Air 04/03/21 11:01 52 18 108/62 (77) 97 Room Air 04/03/21 10:52 51 18 119/70 (86) 98 Room Air 04/03/21 10:01 63 18 120/77 (91) 98 Room Air 04/03/21 09:56 36.2 62 18 110/67 (81) 98 Room Air 04/03/21 09:51 58 18 100/56 (71) Room Air 04/03/21 09:47 53 18 94/55 (68) 96 Room Air 04/03/21 09:42 65 18 112/56 (74) Room Air 04/03/21 09:38 56 18 110/65 (80) 96 Room Air 04/03/21 09:25 61 18 117/69 (85) 97 Room Air 04/03/21 09:22 65 18 113/66 (82) Room Air 04/03/21 09:15 67 18 119/61 (80) 97 Room Air 04/03/21 09:12 53 18 122/66 (84) Room Air 04/03/21 09:05 68 18 113/65 (81) 97 Room Air 04/03/21 09:02 68 18 128/68 (88) 97 Room Air 04/03/21 08:54 70 18 128/72 (90) 98 Room Air 04/03/21 08:50 36.7 04/03/21 08:47 65 18 116/64 (81) 97 Room Air 04/03/21 08:44 69 18 114/70 (85) 97 Room Air 04/03/21 08:41 75 18 111/67 (82) 98 Room Air 04/03/21 08:38 63 18 115/65 (82) 97 Room Air 04/03/21 08:35 73 18 143/62 (89) 98 Room Air 04/03/21 08:32 70 18 139/71 (93) 99 Room Air 04/03/21 08:30 69 18 125/74 (91) 97 Room Air 04/03/21 08:17 107/62 (77) 04/03/21 08:11 70 18 116/73 (87) Room Air 04/03/21 07:51 36.5 04/03/21 07:47 68 18 126/76 (93) Room Air 04/03/21 07:32 71 18 103/74 (84) Room Air 04/03/21 07:17 68 18 124/71 (88) Room Air 04/03/21 07:00 74 18 131/83 (99) Room Air 04/03/21 06:45 68 18 130/78 (95) Room Air 04/03/21 06:35 72 18 123/72 (89) 96 Room Air 04/03/21 06:15 58 18 123/89 (100) 96 Room Air 04/03/21 06:00 53 18 119/60 (79) 96 Room Air 04/03/21 05:50 36.4 59 18 112/70 (84) Room Air 04/03/21 05:15 68 18 104/51 (68) Room Air 04/03/21 05:00 72 18 118/77 (91) Room Air 04/03/21 04:45 69 18 113/67 (82) Room Air 04/03/21 04:15 75 18 102/57 (72) Room Air 04/03/21 04:00 75 18 100/52 (68) Room Air 04/03/21 03:45 63 18 101/57 (72) Room Air 04/03/21 03:30 64 18 96/51 (66) Room Air 04/03/21 03:15 65 18 104/58 (73) Room Air 04/03/21 03:00 68 18 104/60 (75) Room Air 04/03/21 01:45 71 18 103/74 (84) Room Air 04/03/21 01:30 69 18 116/65 (82) Room Air 04/03/21 01:15 36.4 76 18 127/76 (93) Room Air 04/03/21 01:00 64 18 114/69 (84) Room Air 04/03/21 00:45 65 18 130/60 (83) Room Air 04/03/21 00:30 64 18 118/69 (85) Room Air 04/03/21 00:15 63 18 114/61 (78) Room Air 04/03/21 00:00 73 18 112/61 (78) Room Air 04/02/21 23:45 64 18 116/61 (79) Room Air 04/02/21 23:30 67 18 111/60 (77) Room Air 04/02/21 23:15 75 18 115/65 (82) Room Air 04/02/21 23:00 69 18 112/70 (84) Room Air 04/02/21 22:45 81 18 122/75 (91) Room Air 04/02/21 22:15 72 18 122/70 (87) Room Air 04/02/21 22:00 76 18 130/72 (91) Room Air 04/02/21 21:45 82 18 123/76 (92) 97 Room Air 04/02/21 20:55 36.9 84 18 128/68 (88) 97 Room Air 04/02/21 20:55 36.9 84 18 97 Room Air Labs Laboratory Tests 04/02/21 19:59: White Blood Count 9.4, Red Blood Count 3.69L, Hemoglobin 10.6L, Hematocrit 32L, Mean Corpuscular Volume 87, Mean Corpuscular Hemoglobin 29, Mean Corpuscular Hemoglobin Concent 33, Red Cell Distribution Width 12.3, Platelet Count 215, Mean Platelet Volume 9.6, Immature Granulocyte % (Auto) 0, Neutrophils (%) (Auto) 71, Lymphocytes (%) (Auto) 21, Monocytes (%) (Auto) 7, Eosinophils (%) (Auto) 1, Basophils (%) (Auto) 0, Neutrophils # (Auto) 6.7, Lymphocytes # (Auto) 2.0, Monocytes # (Auto) 0.6, Eosinophils # (Auto) 0.1, Basophils # (Auto) 0.0, Immature Granulocyte # (Auto) 0.0 CHRISTOPH VALVERDE DO Apr 03, 2021 12:35
[2021-04-03] MEDS ORDERED: morphine INJ 4 MG/ML 1 ML (VIAL/SYRINGE) IV PRN (12:45)
[2021-04-03] MEDS ORDERED: CATHETER FLUSH 10 ML SYR IV SCH ×2 (14:00)
[2021-04-03] MEDS ORDERED: KETOROLAC 30 MG/ML VIAL IV SCH (18:00)
[2021-04-03] MEDS: KETOROLAC 30 MG/ML VIAL IV SCH (18:59)
[2021-04-03] MEDS: ACETAMINOPHEN 500 MG TAB (TYLENOL) PO SCH (20:15)
[2021-04-03] MEDS: DOCUSATE SODIUM 100 MG (COLACE) CAP PO SCH (20:15)
[2021-04-03] MEDS ORDERED: DOCUSATE SODIUM 100 MG (COLACE) CAP PO SCH (21:00)
[2021-04-04 00:37] VITALS: BP 106/59
[2021-04-04] MEDS: KETOROLAC 30 MG/ML VIAL IV SCH ×2 (00:37→05:51)
[2021-04-04] MEDS: ACETAMINOPHEN 500 MG TAB (TYLENOL) PO SCH ×3 (03:10→18:01)
[2021-04-04 05:04] VITALS: BP 107/53
[2021-04-04 06:24] LABS: BASOPHILS % (AUTO) 0 % (0-10); EOSINOPHILS % (AUTO) 0 % (0-10); HEMATOCRIT 24 % (35-52); HEMOGLOBIN 8.3 g/dL (11.5-16.0); LYMPHOCYTES # (AUTO) 1.8 10^3/uL (1.0-4.0); LYMPHOCYTES % (AUTO) 12 % (12-44); MEAN CORPUSCULAR HEMOGLOBIN 30 pg (25-34); MEAN CORPUSCULAR HGB CONC 34 g/dL (32-36); MEAN CORPUSCULAR VOLUME 88 fL (80-99); MEAN PLATELET VOLUME 9.7 fL (9.0-12.2); MONOCYTES # (AUTO) 1.2 10^3/uL (0.0-1.0); MONOCYTES % (AUTO) 8 % (0-12); NEUTROPHILS # (AUTO) 11.7 10^3/uL (1.8-7.8); NEUTROPHILS % (AUTO) 79 % (42-75); PLATELET COUNT 184 10^3/uL (130-400)
[2021-04-04 08:22] VITALS: BP 107/55
[2021-04-04] MEDS: DOCUSATE SODIUM 100 MG (COLACE) CAP PO SCH ×2 (09:11→22:31)
[2021-04-04] MEDS: PRENATAL VITAMIN 1 EA TAB PO SCH (09:12)
[2021-04-04] MEDS: FERROUS SULF 325 MG (IRON) TAB PO SCH (09:12)
--- NOTE | 2021-04-04 10:04 | Anesthesia-Regional Post-Op ---
Regional Patient Condition Mental Status: Alert, Oriented x3 Circulation: Same as Pre-Op Headache: Absent Sensation: Full Recovery Motor Block: Absent Post Op Complications Complications None Follow Up Care/Instructions Patient Instructions None needed. Anesthesia/Patient Condition Patient is doing well, no complaints, stable vital signs, no apparent adverse anesthesia problems. No complications reported per nursing. ISMAEL HAHN CRNA Apr 04, 2021 10:04
--- NOTE | 2021-04-04 10:21 | Postpartum Progress Note ---
Note Note Day # 1 Subjective: Patient is without complaints. Ambulating, voiding. Tolerating a regular diet without nausea or vomiting. Normal lochia. Pain is well controlled with oral pain medications. Objective: Physical Exam: General - Alert and oriented, no apparent distress Abdomen - Soft, appropriately tender to palpation, non-distended, fundus firm at umbilicus; incision c/d/i Extremities - no edema, negative Ritchie's bilaterally Assessment: Post- day # 1, status post PLTCS. Recovering well, hemodynamically stable Acute blood loss anemia Plan: Routine care. Encourage breast feeding. Encourage ambulation. Ferrous sulfate supplementation. Plan for discharge tomorrow, 04/05/21 Vitals - Labs Vital Signs - I&O Vital Signs Date Time Temp Pulse Resp B/P (MAP) Pulse Ox O2 Delivery O2 Flow Rate FiO2 04/04/21 08:22 36.5 73 18 107/55 (72) 97 Room Air 04/04/21 05:04 36.7 79 18 107/53 (71) 96 Room Air 04/04/21 00:37 36.5 54 18 106/59 (75) 96 Room Air 04/03/21 20:15 36.6 65 18 126/59 (81) 97 Room Air 04/03/21 16:54 36.2 64 18 122/68 (86) 97 Room Air 04/03/21 13:08 Room Air 04/03/21 13:06 36.0 16 131/72 (91) 97 Room Air 04/03/21 12:53 Room Air 04/03/21 12:52 36.0 16 113/76 (88) 100 Room Air 04/03/21 12:37 36.2 13 106/76 (86) 99 Room Air 04/03/21 12:35 Room Air 04/03/21 12:19 36.5 16 100/77 (85) 99 Room Air 04/03/21 11:32 65 18 125/78 (94) 99 Room Air 04/03/21 11:17 47 18 119/64 (82) 99 Room Air 04/03/21 11:01 52 18 108/62 (77) 97 Room Air 04/03/21 10:52 51 18 119/70 (86) 98 Room Air I & O 04/04/21 07:00 Intake Total 4652 ml Output Total 4500 ml Balance 152 ml Labs Laboratory Tests 04/04/21 06:06: White Blood Count 15.0H, Red Blood Count 2.79L, Hemoglobin 8.3#L, Hematocrit 24L , Mean Corpuscular Volume 88, Mean Corpuscular Hemoglobin 30, Mean Corpuscular Hemoglobin Concent 34, Red Cell Distribution Width 12.3, Platelet Count 184, Mean Platelet Volume 9.7, Immature Granulocyte % (Auto) 1, Neutrophils (%) (Auto) 79H, Lymphocytes (%) (Auto) 12, Monocytes (%) (Auto) 8, Eosinophils (%) (Auto) 0, Basophils (%) (Auto) 0, Neutrophils # (Auto) 11.7H, Lymphocytes # (Auto) 1.8, Monocytes # (Auto) 1.2H, Eosinophils # (Auto) 0.0, Basophils # (A uto) 0.0, Immature Granulocyte # (Auto) 0.1 RAZ HOFFMAN APRN Apr 04, 2021 10:21
[2021-04-04 12:00] VITALS: BP 116/64
[2021-04-04] MEDS: IBUPROFEN 600 MG (MOTRIN) TAB PO SCH ×2 (12:18→18:01)
[2021-04-04 18:01] VITALS: BP 123/81
[2021-04-04] MEDS: SIMETHICONE 80 MG (MYLICON) CHEW PO SCH ×2 (18:43→21:18)
[2021-04-04 22:31] VITALS: BP 112/55
[2021-04-05] MEDS: IBUPROFEN 600 MG (MOTRIN) TAB PO SCH ×3 (00:28→11:08)
[2021-04-05 03:53] VITALS: BP 114/59
[2021-04-05] MEDS: ACETAMINOPHEN 500 MG TAB (TYLENOL) PO SCH ×2 (03:53→11:08)
--- NOTE | 2021-04-05 09:29 | Postpartum Progress Note ---
Post Op Post-operative Day #2 s/p PLTCS Subjective: Patient is without complaints. Ambulating, voiding after maria removed. Tolerating a regular diet without nausea or vomiting. Normal lochia. Pain is well controlled with oral pain medications. Passing flatus. breast feeding. [] Objective: 04/04/21 2 22:31 03:53 Temp 36.5 36.7 Pulse 91 85 Resp 18 18 B/P (MAP) 112/55 (74) 114/59 (77) Pulse Ox 96 96 O2 Delivery Room Air Room Air 04/05/21 00:00 Intake Total 600 ml Balance 600 ml Physical Exam: General - Alert and oriented, no apparent distress Abdomen - Soft, appropriately tender to palpation, non-distended, fundus firm at umbilicus Incision - clean, dry and intact; no erythema or induration, no drainage Extremities - no edema, negative Ritchie's bilaterally Assessment: 1. post-operative day # 2, status post PLTCS. 2. antepartum and acute blood loss anemia Recovering well, hemodynamically stable Plan: Routine post-operative care. Encourage breast feeding. Encourage ambulation. VTE prophylaxis: SCDs. Ferrous sulfate supplementation. Plan for discharge today Vitals - Labs Vital Signs - I&O Vital Signs Date Time Temp Pulse Resp B/P (MAP) Pulse Ox O2 Delivery O2 Flow Rate FiO2 04/05/21 03:53 36.7 85 18 114/59 (77) 96 Room Air 04/04/21 22:31 36.5 91 18 112/55 (74) 96 Room Air 04/04/21 18:01 36.5 85 18 123/81 (95) 98 Room Air 04/04/21 12:00 36.4 70 18 116/64 (81) 97 Room Air I & O 04/05/21 07:00 Intake Total 600 ml Balance 600 ml CHRISTOPH VALVERDE DO Apr 05, 2021 09:29
[2021-04-05] MEDS ORDERED: FERR325T24 PO (09:32)
[2021-04-05] MEDS ORDERED: IBUP-844 PO (09:32)
[2021-04-05] MEDS ORDERED: DOCU100C37 PO (09:32)
--- NOTE | 2021-04-05 09:37 | Discharge Inst-Women's Service ---
Discharge Inst-Women's Serv Depart Medication/Instructions New, Converted or Re-Newed RX: Transmitted to Pharmacy (oxycodone tramitted from office previously) Final Diagnosis postdates 40 + weeks failure to progress/non reassuring hearttones meconium OP presentation nuchal cord x 2 labor, previous antepartum and acute blood loss anemia Problems Reviewed?: Yes Consults/Follow Up Additional Follow Up: Yes (1 week with Candy and [address] Cabrera) Activity Activity: Activity as Tolerated Driving Instructions: No Driving for 1 Week NO SMOKING: NO SMOKING Nothing Inside Vagina: No Douching, No [place], No Tampons Diet Discharge Diet: No Restrictions Symptoms to Report to : Bleeding Excessive, Pain Increased, Fever Over 101 Degrees F, Vaginal Bleeding Increase, Cramps in Feet or Legs, Vaginal Discharge Foul For Any Problems or Questions: Contact Your Physician Skin/Wound Care Infection Signs and Symptoms: Increased Redness, Foul Odor of Wound, Increased Drainage, Skin Itchy or Has a Rash, Increased Swelling, Temperature Above 101 F Operative Area Clean and Dry: Keep Incision Clean/Dry Stitches/Gt/Dermabond: Care of [place] [facility] Instructions: CHRISTOPH Pinon DO Apr 05, 2021 09:37
[2021-04-05 10:20] VITALS: BP 134/64
--- NOTE | 2021-04-05 10:25 | Short Stay Summary ---
Discharge Summary Hospital Course Hospital Course Date of Admission: Apr 02, 2021 at 18:43 Admission Diagnosis : Family Physician/Provider: Katie Cabrera MD Date of Discharge: 04/05/21 Discharge Diagnosis: [ ] Hospital Course: [ ] Labs and Pending Lab Test: Home Meds Active Ferosul (Ferrous Sulfate) 325 Mg Tablet 325 Mg PO DAILY Ibu (Ibuprofen) 600 Mg Tablet 600 Mg PO Q6HR Docusate Sodium 100 Mg Capsule 100 Mg PO BID Reported Singulair (Montelukast Sodium) 10 Mg Tablet 10 Mg PO DAILY Zyrtec (Cetirizine HCl) 10 Mg Tablet 10 Mg PO DAILY Vitamins ( Vit W-Ca,Fe,FA(<1 mg)) 1 Each Tablet 1 Each PO DAILY Discharge Instructions Discharge Diet: No Restrictions Discharge Physical Examination Allergies: Coded Allergies: latex (Verified Allergy, Unknown, Hives, 02/04/21) shrimp (Verified Allergy, Unknown, 10/31/19) Discharge Summary Date of Admission Apr 02, 2021 at 18:43 Date of Discharge Discharge Date: Apr 05, 2021 CHRISTOPH VALVERDE DO Apr 05, 2021 10:25
[2021-04-05] MEDS: DOCUSATE SODIUM 100 MG (COLACE) CAP PO SCH (10:27)
[2021-04-05] MEDS: FERROUS SULF 325 MG (IRON) TAB PO SCH (10:27)
[2021-04-05] MEDS: PRENATAL VITAMIN 1 EA TAB PO SCH (10:27)
== END 2021-04-05 12:30 | disposition home or self-care (01) | DRG 787 ==
LOC: LDRP 18:43
PROVIDERS: ADMIT Family Medicine; ATTEND Family Medicine
PROC: 10D00Z1 Extraction of Products of Conception, Low, Open Approach (ICD-10-PCS; principal; 2021-04-03 11:38)
DX: O48.0 Post-term pregnancy (principal); D62 Acute posthemorrhagic anemia; Z3A.40 40 weeks gestation of pregnancy; Z37.0 Single live birth; O99.824 Streptococcus B carrier state complicating childbirth; O62.0 Primary inadequate contractions; O76 Abnormality in fetal heart rate and rhythm complicating labor and delivery; O77.0 Labor and delivery complicated by meconium in amniotic fluid; O64.0XX0 Obstructed labor due to incomplete rotation of fetal head, not applicable or unspecified; O90.81 Anemia of the puerperium; O69.81X0 Labor and delivery complicated by cord around neck, without compression, not applicable or unspecified
CPT/HCPCS: 36415; 85025; 86850; 86900; 86901; 94664

== ENCOUNTER 2022-05-14 21:04 | Emergency (ER) | payer MEDICAID ==
[~2022-05-14] VITALS: Ht 167.7 cm; Wt 64.4 kg
[~2022-05-14 21:04] MED LIST changes: +ALBU8.5H6 IH; +DOCU100C37 PO; +FERR325T24 PO; +IBUP-844 PO; -MOME13HF IH; +MOME13HF11 IH; -RT-ALBUINH IH
[2022-05-14] MEDS ORDERED: NS IV 1000 ML 1,000 ML IV STA (21:20)
[2022-05-14 21:28] LABS: BASOPHILS % (AUTO) 0 % (0-10); EOSINOPHILS % (AUTO) 0 % (0-10); HEMATOCRIT 37 % (35-52); HEMOGLOBIN 12.6 g/dL (11.5-16.0); LYMPHOCYTES # (AUTO) 2.3 10^3/uL (1.0-4.0); LYMPHOCYTES % (AUTO) 21 % (12-44); MEAN CORPUSCULAR HEMOGLOBIN 29 pg (25-34); MEAN CORPUSCULAR HGB CONC 34 g/dL (32-36); MEAN CORPUSCULAR VOLUME 85 fL (80-99); MEAN PLATELET VOLUME 9.4 fL (9.0-12.2); MONOCYTES # (AUTO) 0.6 10^3/uL (0.0-1.0); MONOCYTES % (AUTO) 6 % (0-12); NEUTROPHILS # (AUTO) 8.1 10^3/uL (1.8-7.8); NEUTROPHILS % (AUTO) 72 % (42-75); PLATELET COUNT 298 10^3/uL (130-400); WHITE BLOOD COUNT 11.1 10^3/uL (4.3-11.0)
[2022-05-14] MEDS ORDERED: morphine INJ 10 MG/ML 1ML (SYR OR VIAL) IVP ONE (21:30)
--- NOTE | 2022-05-14 21:35 | ED Abdominal Pain ---
General Chief Complaint: OB < 20 WEEKS Stated Complaint: ABD PAIN/VOMITING 7 WKS PREG Nursing Triage Note: PT TO RM 5 VIA WC W C/O "GALLBLADDER ATTACK." REPORTS SEVERE RUQ/RLQ PAIN THAT BEGAN 2 HRS AGO AND RADIATES TO BACK, ALSO REPORTS NAUSEA. PT ATE FRIED CHICKEN 10 MINS PRIOR TO ONSET OF PAIN. A&OX4, APPROX 7WKS . Source of Information: Patient Exam Limitations: No Limitations (LINDA DAVIS) History of Present Illness Date Seen by Provider: May 14, 2022 Time Seen by Provider: 21:33 Initial Comments Patient is a 26-year-old female who is 7 weeks who presents ED with severe right upper and right lower quadrant abdominal pain. This started 2 hours ago after 10 minutes of eating fried chicken. Radiates to the back reports nausea without vomiting or diarrhea. Patient states last menstrual cycle 03/28/2022. She is G3, P1 with a history of miscarriage. She reports intermittent vaginal bleeding over the past 9 days. She states blood is dark. She denies taking anything for pain before arrival. She rates pain 8 out of 10 on arrival. She reports history of similar pain after eating however she is concerned that the pain appears to be migrating to her pelvic area. She saw Dr. Navarrete last week for vaginal spotting. She had an increasing beta quant's but denies of any previous abdominal ultrasounds. (LINDA DAVIS) Allergies and Home Medications Allergies Coded Allergies: latex (Verified Allergy, Unknown, Hives, 02/04/21) shrimp (Verified Allergy, Unknown, 10/31/19) Patient Home Medication List Home Medication List Reviewed: Yes (LINDA DAVIS) Cetirizine HCl (Zyrtec) 10 Mg Tablet, 10 MG PO DAILY, (Reported) Entered as Reported by: JOSUE HART on 02/04/211933 Docusate Sodium (Docusate Sodium) 100 Mg Capsule, 100 MG PO BID Prescribed by: CHRISTOPH VALVERDE on 04/05/21931 Ferrous Sulfate (Ferosul) 325 Mg Tablet, 325 MG PO DAILY Prescribed by: CHRISTOPH VALVERDE on 04/05/21931 Ibuprofen (Ibu) 600 Mg Tablet, 600 MG PO Q6HR Prescribed by: CHRISTOPH VALVERDE on 04/05/21931 Metoclopramide HCl (Reglan) 10 Mg Tablet, 10 MG PO Q6H PRN for NAUSEA-1ST LINE Prescribed by: EILEEN SHOEMAKER on 05/15/22 0003 Montelukast Sodium (Singulair) 10 Mg Tablet, 10 MG PO DAILY, (Reported) Entered as Reported by: JOSUE HART on 02/04/211933 Vit W-Ca,Fe,FA(<1 mg) ( Vitamins) 1 Each Tablet, 1 EACH PO DAILY, (Reported) Entered as Reported by: JOSUE HART on 02/04/211933 Review of Systems Review of Systems Constitutional: No chills, No diaphoresis, No fever, No malaise EENTM: No Double Vision, No Eye Pain Respiratory: Denies Cough, Denies Orthopnea Gastrointestinal: Abdominal Pain; Denies Diarrhea; Nausea; Denies Vomiting Genitourinary: Denies Burning, Denies Discharge Musculoskeletal: No back pain, No joint pain Skin: No change in color, No change in hair/nails (LINDA DAVIS) All Other Systems Reviewed Negative Unless Noted: Yes (LINDA DAVIS) Past Itnycph-Oipjgl-Ckttyy Hx Patient Social History Tobacco Use?: No Use of E-Cig and/or Vaping dev: No Substance use?: No Alcohol Use?: No (LINDA DAVIS) Immunizations Up To Date Tetanus Booster (TDap): Unknown PED Vaccines UTD: No Influenza Vaccine Up-to-Date: Yes; Up-to-Date First/Initial COVID19 Vaccinat: 03/2020 Second COVID19 Vaccination Gilbert: 04/2020 Third COVID19 Vaccination Date: 08/2021 COVID19 Vaccine Felter Tennis Balls: MODERNYared (LINDA DAVIS) Seasonal Allergies Seasonal Allergies: Yes (LINDA DAVIS) Past Medical History Surgeries: Yes (HERNIA X3, LAPAROSCOPY (ENDOMETRIOSIS) X2) Abdominal Respiratory: Yes Asthma Cardiac: No Neurological: Yes Headaches /Migraines Last Menstrual Period: Mar 28, 2022 Female Reproductive Disorders: Endometriosis Sexually Transmitted Disease: No HIV/AIDS: No Genitourinary: No (INTERSTITIAL CYSTITIS) Gastrointestinal: Yes Abdominal Hernia Musculoskeletal: Yes (R KNEE TORN MCL) Endocrine: No HEENT: Yes (GLASSES/CONTACTS) Loss of Vision: Denies Hearing Impairment: Denies Cancer: No Psychosocial: Yes Anxiety Integumentary: No Blood Disorders: No Adverse Reaction/Blood Tranf: No (N/A) (LINDA DAVIS) Physical Exam Vital Signs Vital Signs - First Documented 05/14/22 21:10 Temp 36.2 Pulse 82 Resp 20 B/P (MAP) 134/80 (98) Pulse Ox 98 O2 Delivery Room Air (JASE,AIMEE K DO) Vital Signs Capillary Refill : Less Than 3 Seconds (LINDA DAVIS) Height/Weight/BMI Height: 5'6.00" Weight: 130lbs. oz. 58.121011ol; 22.00 BMI Method:Stated General Appearance: WD/WN, no apparent distress HEENT: PERRL/EOMI, normal ENT inspection, TMs normal, pharynx normal Neck: non-tender, full range of motion, supple, normal inspection Respiratory: chest non-tender, lungs clear, normal breath sounds, no respiratory distress, no accessory muscle use Cardiovascular: regular rate, rhythm, no edema, no gallop, no JVD Gastrointestinal: normal bowel sounds, soft, no organomegaly, tenderness (Right upper quadrant tenderness. No suprapubic tenderness. Normal bowel sounds throughout. No rebound or guarding) Extremities: normal range of motion, non-tender, normal inspection Back: normal inspection, no CVA tenderness Neurologic/Psychiatric: presser first II-XII nml as tested, no motor/sensory deficits, alert, normal mood/affect, oriented x 3 Skin: normal color, warm/dry (LINDA DAVIS) Procedures/Interventions Dental Procedures: block (LINDA DAVIS) Progress/Results/Core Measures Results/Orders Lab Results Laboratory Tests Test 05/14/22 21:19 05/14/22 22:20 Range/Units White Blood Count 11.1 H 4.3-11.0 10^3/uL Red Blood Count 4.40 3.80-5.11 10^6/uL Hemoglobin 12.6 11.5-16.0 g/dL Hematocrit 37 35-52 % Mean Corpuscular Volume 85 80-99 fL Mean Corpuscular Hemoglobin 29 25-34 pg Mean Corpuscular Hemoglobin Concent 34 32-36 g/dL Red Cell Distribution Width 12.4 10.0-14.5 % Platelet Count 298 130-400 10^3/uL Mean Platelet Volume 9.4 9.0-12.2 fL Immature Granulocyte % (Auto) 0 % Neutrophils (%) (Auto) 72 42-75 % Lymphocytes (%) (Auto) 21 12-44 % Monocytes (%) (Auto) 6 0-12 % Eosinophils (%) (Auto) 0 0-10 % Basophils (%) (Auto) 0 0-10 % Neutrophils # (Auto) 8.1 H 1.8-7.8 10^3/uL Lymphocytes # (Auto) 2.3 1.0-4.0 10^3/uL Monocytes # (Auto) 0.6 0.0-1.0 10^3/uL Eosinophils # (Auto) 0.0 0.0-0.3 10^3/uL Basophils # (Auto) 0.0 0.0-0.1 10^3/uL Immature Granulocyte # (Auto) 0.0 0.0-0.1 10^3/uL Sodium Level 137 135-145 MMOL/L Potassium Level 3.2 L 3.6-5.0 MMOL/L Chloride Level 109 H 98-107 MMOL/L Carbon Dioxide Level 17 L 21-32 MMOL/L Anion Gap 11 5-14 MMOL/L Blood Urea Nitrogen 11 7-18 MG/DL Creatinine 0.66 0.60-1.30 MG/DL Estimat Glomerular Filtration Rate 125 BUN/Creatinine Ratio 17 Glucose Level 123 H 70-105 MG/DL Calcium Level 8.9 8.5-10.1 MG/DL Corrected Calcium 8.6 8.5-10.1 MG/DL Total Bilirubin 0.3 0.1-1.0 MG/DL Aspartate Amino Transf (AST/SGOT) 15 5-34 U/L Alanine Aminotransferase (ALT/SGPT) 37 0-55 U/L Alkaline Phosphatase 58 40-136 U/L Total Protein 6.9 6.4-8.2 GM/DL Albumin 4.4 3.2-4.5 GM/DL Lipase 15 8-78 U/L Human Chorionic Gonadotropin, Quant 88772 H <5 MIU/ML Urine Color YELLOW Urine Clarity CLEAR Urine pH 5.5 5-9 Urine Specific [place] >=1.030 1.016-1.022 Urine Protein NEGATIVE NEGATIVE Urine Glucose (UA) NEGATIVE NEGATIVE Urine Ketones 1+ H NEGATIVE Urine Nitrite NEGATIVE NEGATIVE Urine Bilirubin NEGATIVE NEGATIVE Urine Urobilinogen 0.2 < = 1.0 MG/DL Urine Leukocyte Esterase NEGATIVE NEGATIVE Urine RBC (Auto) NEGATIVE NEGATIVE Urine RBC 2-5 H /HPF Urine WBC 0-2 /HPF Urine Squamous Epithelial Cells 5-10 /HPF Urine Crystals NONE /LPF Urine Bacteria MODERATE H /HPF Urine Casts NONE /LPF Urine Mucus SMALL H /LPF Urine Culture Indicated YES (JASEAIMEE Raj MARTINEZ) Micro Results Microbiology 05/14/22 Urine Culture - Final, Complete NO GROWTH (JASEAIMEE Anthony ) Vital Signs/I&O 05/14/22 05/15/22 21:10 00:04 Temp 36.2 Pulse 82 72 Resp 20 18 B/P (MAP) 134/80 (98) 114/64 Pulse Ox 98 97 O2 Delivery Room Air Room Air (AIMEE LAGUNA ) Blood Pressure Mean: 98 Departure Communication (PCP) Reviewed previous ER visits, H&P, lab testing. Patient is 7 weeks . Patient is . History of miscarriage. Patient with intermittent spotting dark blood since last week. Patient with right upper quadrant right lower quadrant suprapubic pain after she ate fried chicken. History of similar type pain in the past. Patient has tenderness to right upper quadrant and lower abdomen. No previous ultrasound. Due to her current complaints CBC, CMP, ABO, urinalysis was ordered. Patient in moderate distress and tearful on arrival. Patient holding her lower abdomen. She was tender to the right upper quadrant. Differential diagnosis of ectopic , biliary colic, gastritis, appendicitis. CBC showed white blood count 11.1. Chemistry showed potassium of 3.2. Beta quant is 69,000. Urinalysis with hematuria without evidence of infection. Rh+. Normal liver enzymes, bilirubin. Patient was requesting somet claudette stronger than Tylenol. Discussed narcotics and potential of side effects. She acknowledges and wanted to proceed with stronger pain medication. Patient was given fentanyl and morphine for better improvement of pain. Due to lower abdominal pain with tenderness ultrasound was ordered. Ultrasound was negative for ectopic and showed intrauterine heart tones at 134. Estimated 6 weeks and 6 days. Due to normal liver enzymes, bilirubin not able to perform ultrasound of the gallbladder as initial presentation with pain after eating fried chicken would be concerning for biliary disease. Since patient pain improved provided order outpatient and to follow-up with results with PCP. Discussed diet changes. Discussed Tums. Recommend hydration. Follow-up with your [employer] for further evaluation. Return precaution were discussed with patient. Reevaluation of the abdomen without evidence of surgical abdomen. Negative Jacob test. Urinalysis negative for infection. She is not concern for sexual transmitted infection refused pelvic swab and exam. Vital signs stable. (LINDA DAVIS) Impression Primary Impression: Abdominal pain Disposition: HOME, SELF-CARE Condition: Stable Departure-Patient Inst. Decision time for Depature: 00:01 (LINDA DAVIS) Referrals: JANNETH NAVARRETE MD (PCP/Family) Primary Care Physician Patient Instructions: Abdominal Pain, Adult ED, POSS GALLSTONE-W/BILIARY COLIC Add. Discharge Instructions: Recommend outpatient ultrasound of the right upper quadrant. If any continue worsening pain in the upper abdomen with vomiting fever to return back to ED. Discussed diet changes such as avoiding fatty foods. Prescribed Reglan for nausea. All discharge instructions reviewed with patient and/or family. Voiced understanding. Scripts Metoclopramide HCl (Reglan) 10 Mg Tablet 10 MG PO Q6H PRN for NAUSEA-1ST LINE, #10 TAB Prov: LINDA DAVIS 05/15/22 ATTENDING PHYSICIAN NOTE: I WAS PHYSICALLY PRESENT ER PHYSICIAN, BUT I WAS NOT INVOLVED IN ANY DECISION MAKING OR ANY CARE OF THIS PATIENT, AND I AM NOT COLLABORATING PHYSICIAN. (AIMEE LAGUNA DO) LINDA DAVIS May 14, 2022 21:35 AIMEE LAGUNA DO May 19, 2022 18:00
[2022-05-14 21:37] LABS: ALBUMIN 4.4 GM/DL (3.2-4.5); POTASSIUM 3.2 MMOL/L (3.6-5.0)
[2022-05-14 21:38] LABS: CALCIUM 8.9 MG/DL (8.5-10.1)
[2022-05-14 21:39] LABS: TOTAL PROTEIN 6.9 GM/DL (6.4-8.2)
[2022-05-14 21:41] LABS: BILIRUBIN,TOTAL 0.3 MG/DL (0.1-1.0)
[2022-05-14 21:43] LABS: CREATININE SERUM 0.66 MG/DL (0.60-1.30)
[2022-05-14] MEDS ORDERED: fentaNYL INJ 100 MCG/2 ML AMP IVP STA (21:49)
[2022-05-14] MEDS ORDERED: diphenhydrAMINE 50 MG/ML INJ (BENADRYL) IVP ONE (22:15)
[2022-05-14 22:31] LABS: BILIRUBIN,URINE NEGATIVE (NEGATIVE); CLARITY,URINE CLEAR; COLOR,URINE YELLOW; GLUCOSE, URINE (UA) NEGATIVE (NEGATIVE); KETONES,URINE 1+ (NEGATIVE); LEUKOCYTE ESTERASE ,URINE NEGATIVE (NEGATIVE); NITRITE,URINE NEGATIVE (NEGATIVE); PH,URINE 5.5 (5-9); PROTEIN,URINE NEGATIVE (NEGATIVE)
[2022-05-14 22:44] LABS: BACTERIA,URINE MODERATE /HPF
[2022-05-14 22:45] LABS: WBC,URINE 0-2 /HPF
[2022-05-14] MEDS ORDERED: METOCLOPRAMIDE INJ 10 MG/2 ML (REGLAN) IVP ONE (22:45)
[2022-05-14] MEDS ORDERED: KCL 20 MEQ TAB (K-DUR) PO ONE (22:45)
[2022-05-15] MEDS ORDERED: METO-310 PO (00:03)
[2022-05-15 00:04] VITALS: BP 114/64
--- NOTE | 2022-05-15 06:46 | Diagnostic Imaging Report ---
INDICATION: Severe pelvic pain OB ultrasound Transabdominal and endovaginal scanning of the pelvis was performed. Uterus measures 8.0 x 5.3 x 6.4 cm. There is a single living intrauterine with embryo crown-rump length of 8 mm. This corresponds to gestational age of 6 weeks and 6 days. heartbeat was recorded at 134 bpm. Yolk sac is present. Gestational sac is round. Placenta location is indeterminate. There is a tiny subchorionic hemorrhage. There is a 1.3 cm corpus luteum cyst on left ovary.. Both ovaries have normal blood flow. IMPRESSION: Single living intrauterine with estimated gestational age of 6 weeks and 6 days. Estimated date of confinement is 01/01/2023. I agree with preliminary interpretation. Dictated by: Dictated on workstation # [id number]
== END 2022-05-15 00:04 | disposition home or self-care (01) ==
LOC: EDUNIT# 21:04 → ER 21:06
DX: O26.891 Other specified pregnancy related conditions, first trimester (principal); R10.11 Right upper quadrant pain; R10.31 Right lower quadrant pain; R11.0 Nausea; Z87.19 Personal history of other diseases of the digestive system; Z91.040 Latex allergy status; Z3A.01 Less than 8 weeks gestation of pregnancy
CPT/HCPCS: 36415; 76801; 76817; 80053; 81000; 83690; 84702; 84703; 85025; 87088

== ENCOUNTER 2022-12-29 06:31 | Inpatient (IN) | payer OTHER, MEDICAID ==
[2022-12-29] VITALS (10 sets, daily range): BP systolic 103–138; BP diastolic 47–93
[~2022-12-29] VITALS: Ht 167.7 cm; Wt 72.1 kg
[~2022-12-29 06:31] MED LIST changes: +DICY-11 PO; -DICY10CA12 PO; +METO-310 PO; +MONT-47 PO; -MONT10TA21 PO
[2022-12-29] MEDS ORDERED: D5 LR 1,000 ML IV SOLN 1,000 ML IV SCH (08:15)
[2022-12-29] MEDS ORDERED: LIDOCAINE/EPI 1%-1:200,000 (XYLOCAINE) 30 ML VIAL INJ ONE (08:15)
--- NOTE | 2022-12-29 08:22 | History & Physical-OB ---
OB - Chief Complaint & HPI Date/Time Date of Admission: Date of Admission: Dec 29, 2022 at 06:31 Date seen by a Provider: Dec 29, 2022 Time Seen by a Provider: 07:30 Chief Complaint/History OB-Reason for Admission/Chief: Induction of Labor Hx : 3 Hx Para: 1 Expected Date of Delivery: Jan 02, 2023 Gestational Age in Weeks: 39 Gestational Age in Days: 3 Admission Nurse Assessment Rev: Yes History of Labs A+ GBS + RI Hep B/C neg HIV neg RI Other This 27-year-old G2, P1 presents to labor and delivery for induction of labor secondary to desiring a trial of labor after section. She had had a LTCS for distress and had an 82% probability being successful. We discussed the risks and the benefits in detail and patient had signed consents. However upon arriving patient denies having any contractions and her cervix is 1 cm and posterior and patient elected to proceed to repeat low- transverse section today. We discussed the risk benefits and alternatives of section in detail the patient verbalized understanding had all of her questions answered to her satisfaction, signed consents and is ready to proceed. Allergies and Home Medications Allergies Coded Allergies: latex (Verified Allergy, Unknown, Hives, 02/04/21) shrimp (Verified Allergy, Unknown, 10/31/19) Patient Home Medication List Home Medication List Reviewed: Yes Cetirizine HCl (Zyrtec) 10 Mg Tablet, 10 MG PO DAILY, (Reported) Entered as Reported by: JOSUE HART on 02/04/211933 Last Action: Reviewed Docusate Sodium (Docusate Sodium) 100 Mg Capsule, 100 MG PO BID Prescribed by: CHRISTOPH VALVERDE on 04/05/21931 Last Action: Reviewed Ferrous Sulfate (Ferosul) 325 Mg Tablet, 325 MG PO DAILY Prescribed by: CHRISTOPH VALVERDE on 04/05/21931 Last Action: Reviewed Ibuprofen (Ibu) 600 Mg Tablet, 600 MG PO Q6HR Prescribed by: CHRISTOPH VALVERDE on 04/05/21931 Last Action: Reviewed Metoclopramide HCl (Reglan) 10 Mg Tablet, 10 MG PO Q6H PRN for NAUSEA-1ST LINE Prescribed by: EILEEN SHOEMAKER on 05/15/22 0003 Last Action: Reviewed Montelukast Sodium (Singulair) 10 Mg Tablet, 10 MG PO DAILY, (Reported) Entered as Reported by: JOSUE HART on 02/04/211933 Last Action: Reviewed Vit W-Ca,Fe,FA(<1 mg) ( Vitamins) 1 Each Tablet, 1 EACH PO DAILY, (Reported) Entered as Reported by: JOSUE HART on 02/04/211933 Last Action: Reviewed OB - History Hx of Present Care: Yes Ultrasounds: Normal mid trimester US Medical Complications: None Information Induced Hypertension: No Maternal Gestational Diabetes: No Hemorrhage: No Obstetrical History Hx : 2 Hx Para: 1 Hx # Term Pregnancies: 1 Number of Living Children: 1 Delivery History Hx Section: Yes Adverse Rxn to Tranfusion: No (N/A) Patient Past Medical History Asthma Social History/Family History Alcohol Use: Denies Use Smoking Cessation: Never smoker 2nd Hand Smoke Exposure: No Immunizations Influenza Vaccine Up-to-Date: Yes; Up-to-Date First/Initial COVID19 Vaccine: 03/2020 Second COVID19 Vaccination: 04/2020 Third COVID19 Vaccination Date: 08/2021 Tetanus Booster (TDap): Unknown OB - Admission Exam Physical Exam HEENT: NCAT Heart: Rhythm Normal Lungs: Clear Abdomen: Gravid Extremities: Normal Reflexes: Normal Cervical Dilatation: 1cm Effacement: 25% Station: -2 Membranes: Intact Heart Rate: 140's Accelerations: Accelerations Present Decelerations: No Decelerations Short Term Variability: Present Longterm Variability: Average (6-25) Contractions on Admission: None OB - Assessment/Plan/Diagnosis Assessment Assessment: section Admission Dx IUP at 39 weeks 3 days Desires RLTCS Admit Admission Status: Inpatient Order (span 2 midnights) Reason for Inpatient Admission: IUP at 39 weeks 3 days Desires RLTCS Plan Plan: Section Copy Copies To 1: JANNETH NAVARRETE MD, VICTORIA A DO Dec 29, 2022 08:22
[2022-12-29 11:13] LABS: BASOPHILS % (AUTO) 0 % (0-10); EOSINOPHILS # (AUTO) 0.1 10^3/uL (0.0-0.3); EOSINOPHILS % (AUTO) 0 % (0-10); HEMATOCRIT 33 % (35-52); LYMPHOCYTES # (AUTO) 2.3 10^3/uL (1.0-4.0); LYMPHOCYTES % (AUTO) 17 % (12-44); MEAN CORPUSCULAR HEMOGLOBIN 26 pg (25-34); MEAN CORPUSCULAR HGB CONC 33 g/dL (32-36); MEAN CORPUSCULAR VOLUME 79 fL (80-99); MEAN PLATELET VOLUME 10.3 fL (9.0-12.2); MONOCYTES # (AUTO) 0.6 10^3/uL (0.0-1.0); MONOCYTES % (AUTO) 4 % (0-12); NEUTROPHILS # (AUTO) 10.3 10^3/uL (1.8-7.8); NEUTROPHILS % (AUTO) 77 % (42-75); PLATELET COUNT 286 10^3/uL (130-400); WHITE BLOOD COUNT 13.3 10^3/uL (4.3-11.0)
[2022-12-29] MEDS ORDERED: LACTATED RINGERS 1,000 ML 1,000 ML IV PRN ×2 (11:30)
[2022-12-29] MEDS ORDERED: CITRIC ACID/SODIUM CITRATE ORAL SOLN 30 ML PO ONE (11:30)
[2022-12-29] MEDS ORDERED: METOCLOPRAMIDE INJ 10 MG/2 ML IV ONE (11:30)
[2022-12-29] MEDS ORDERED: CATHETER FLUSH 10 ML SYR IV PRN (11:30)
[2022-12-29] MEDS ORDERED: FAMOTIDINE INJ 20MG/2ML VIAL IV ONE (11:30)
[2022-12-29] MEDS ORDERED: fentaNYL INJECTION 100 MCG/2 ML VIAL ONE (12:10)
[2022-12-29] MEDS: KETOROLAC INJ 30 MG/ML VIAL IV SCH ×2 (12:35→18:44)
[2022-12-29] MEDS ORDERED: OXYTOCIN DRIP PRE-MIX 500 ML IV ONE (12:42)
[2022-12-29] MEDS ORDERED: ONDANSETRON INJECTION 4 MG/2 ML (SDV) ONE ×2 (12:42→14:15)
[2022-12-29] MEDS ORDERED: PHENYLEPHRINE 100 MCG/ML 10 ML (ANESTHESIA) SYR ONE (12:42)
[2022-12-29] MEDS ORDERED: BUPIVACAINE 0.5% 30 ML VIAL ONE (12:44)
[2022-12-29] MEDS ORDERED: ceFAZolin INJECTION 2,000 MG in NS (IVPB) 50 ML 50 ML IV ONE (13:00)
[2022-12-29] MEDS ORDERED: MEASLES, MUMPS, RUBELLA VACCINE (MMR) SC SCH (13:00)
[2022-12-29] MEDS ORDERED: OXYTOCIN DRIP PRE-MIX 500 ML IV SCH (13:00)
[2022-12-29] MEDS ORDERED: NALOXONE 0.4 MG/ML 1 ML VIAL IV PRN (13:00)
[2022-12-29] MEDS ORDERED: Tetanus/Diphtheria/Pertussis (Acell) ADULT Vaccine 0.5 ML IM SCH (13:00)
[2022-12-29] MEDS ORDERED: morphine INJ 4 MG/ML 1 ML (VIAL/SYRINGE) IV PRN (13:00)
--- NOTE | 2022-12-29 13:00 | Cesarean Section Operative ---
Procedure Procedure Note Pre-operative Diagnosis: Mercy thomas (27 /Para 2 / 1, Gestational Age (wks)39 with previous LTCS desires repeat Post-operative Diagnosis: same plus live born male Procedure: Repeat low transverse section Physician: EDWIGE MEYERS Bulk Loader: Jayleen Cain RN Estimated blood loss: 400 mL Disposition: Counts correct x3 pt stable to recovery room Findings: Liveborn male , Apgars 9/9, weight 7#5oz, intact placenta, 3vc, normal appearing uterus, tubes, and ovaries. Indications:Mercy thomas (27 /Para 2 / 1,Gestational Age (wks)39 presenting for repeat low transverse section Procedure Details: The patient was seen in pre-op and the procedure was discussed with the patient in full, including the risks, benefits, and alternatives. All questions were answered. The patient was taken to the operating room and a time out was performed, verifying patient and procedure. After spinal anesthesia was placed by our anesthesia colleagues, the patient was placed in the dorsal supine with leftward tilt for uterine displacement.~ Her abdomen was then prepped and draped in the typical sterile fashion. A Pfannenstiel skin incision was made using a scalpel and carried down through the underlying fascia. The fascia was incised in the midline and tented up using Ankit clamps. On both the inferior and superior fascia side the rectus muscle was dissected off bluntly and sharply using Nair scissors. The peritoneum was identified and entered bluntly in the midline. This was then stretched laterally using manual strength. After entering the abdominal cavity and confirming lack of intraperitoneal adhesions, a large Sam retractor was placed and the lower uterine segment was visualized. A bladder flap was created with the use of Metzenbaum scissors.~ A scalpel was utilized to make a low transverse uterine incision. Amniotomy was performed with an Allis clamp with return of clear fluid. The infant's head was grasped and brought to the level of the incision. Fundal pressure was applied and was delivered without difficulty. Mouth and nares were suctioned with bulb suction. After the umbilical cord was clamped and cut, the was handed off to the pediatric staff. A sample of cord blood was then obtained. The placenta was delivered intact via uterine massage. The uterus was exteriorized and cleared of all clots and debris. The uterine incision was closed using 0 Vicryl in a running locked fashion. A second imbricated layer was placed using 0 Vicryl in a running fashion as well. The uterus was flexed forward and the posterior rectouterine space was inspected and cleared of all clots and debris. Again the hysterotomy site was examined and hemostasis was observed. The bilateral tubes and ovaries appeared normal. The uterus was placed back into the abdominal cavity and abdominal gutters were cleared of all clots and debris. A final check of the uterine incision showed it to be hemostatic. The peritoneum was closed using 3-0 Vicryl in a running fashion. The fascia was closed with 0 Vicryl in a running fashion. The subcutaneous space was hemostatic, and irrigated. The subcutaneous space was closed with 3-0 Vicryl in several single interrupted stitches. The skin was then closed using 4-0 Monocryl in a running subcuticular fashion. The skin edges were reapproximated together and were hemostatic. A Dermabond dressing was applied. All sponge, lap and need le counts were correct at the end of the procedure per nursing. Vitals - Labs Vital Signs - I&O Vital Signs Date Time Temp Pulse Resp B/P (MAP) Pulse Ox O2 Delivery O2 Flow Rate FiO2 12/29/22 11:23 80 18 122/68 (86) 98 Room Air 12/29/22 11:21 36.7 74 18 97 Room Air 12/29/22 07:30 37.0 88 18 138/93 (108) 97 Room Air Labs Laboratory Tests 12/29/22 10:55: White Blood Count 13.3H, Red Blood Count 4.21, Hemoglobin 11.0L, Hematocrit 33L, Mean Corpuscular Volume 79L, Mean Corpuscular Hemoglobin 26, Mean Corpuscular Hemoglobin Concent 33, Red Cell Distribution Width 13.6, Platelet Count 286, Mean Platelet Volume 10.3, Immature Granulocyte % (Auto) 1, Neutrophils (%) (Auto) 77H, Lymphocytes (%) (Auto) 17, Monocytes (%) (Auto) 4, Eosinophils (%) (Auto) 0, Basophils (%) (Auto) 0, Neutrophils # (Auto) 10.3H, Lymphocytes # (Auto) 2.3, Monocytes # (Auto) 0.6, Eosinophils # (Auto) 0.1, Basophils # (Auto) 0.0, Immature Granulocyte # (Auto) 0.1, Syphilis Total Antibody Negative EDWIGE MEYERS DO Dec 29, 2022 13:00
[2022-12-29] MEDS ORDERED: CATHETER FLUSH 10 ML SYR IV SCH (14:00)
[2022-12-29] MEDS: CATHETER FLUSH 10 ML SYR IV SCH (14:00)
[2022-12-29] MEDS: ONDANSETRON INJECTION 4 MG/2 ML (SDV) IVP PRN ×2 (14:19→19:14)
[2022-12-29] MEDS ORDERED: HYDROcodone/ACETAMINOPHEN 5 MG/325 MG TABLET PO PRN (16:00)
[2022-12-29] MEDS ORDERED: HYDROcodone/ACETAMINOPHEN 5 MG/325 MG TABLET ONE (16:07)
[2022-12-29] MEDS ORDERED: oxyCODONE IMMEDIATE RELEASE 5 MG TABLET ONE (20:35)
[2022-12-29] MEDS ORDERED: ACETAMINOPHEN 500 MG TABLET ONE (20:35)
[2022-12-29] MEDS: DOCUSATE SODIUM 100 MG CAPSULE PO SCH (20:37)
[2022-12-29] MEDS: ACETAMINOPHEN 500 MG TABLET PO PRN (20:37)
[2022-12-29] MEDS: oxyCODONE IMMEDIATE RELEASE 5 MG TABLET PO PRN (20:38)
[2022-12-30 00:20] VITALS: BP 120/69
[2022-12-30] MEDS: CATHETER FLUSH 10 ML SYR IV SCH (00:20)
[2022-12-30] MEDS: KETOROLAC INJ 30 MG/ML VIAL IV SCH ×2 (00:20→04:47)
[2022-12-30] MEDS: oxyCODONE IMMEDIATE RELEASE 5 MG TABLET PO PRN ×6 (00:31→21:57)
[2022-12-30] MEDS: SIMETHICONE 80 MG CHEWABLE TABLET PO SCH ×2 (02:31→13:45)
[2022-12-30] MEDS ORDERED: ONDANSETRON 4 MG ORAL DISSOLVE TABLET PO PRN (02:45)
[2022-12-30] MEDS: ACETAMINOPHEN 500 MG TABLET PO PRN ×3 (03:40→18:30)
[2022-12-30 04:54] VITALS: BP 110/68
[2022-12-30 06:26] LABS: BASOPHILS % (AUTO) 0 % (0-10); EOSINOPHILS # (AUTO) 0.1 10^3/uL (0.0-0.3); EOSINOPHILS % (AUTO) 0 % (0-10); HEMATOCRIT 29 % (35-52); HEMOGLOBIN 9.3 g/dL (11.5-16.0); LYMPHOCYTES # (AUTO) 1.7 10^3/uL (1.0-4.0); LYMPHOCYTES % (AUTO) 14 % (12-44); MEAN CORPUSCULAR HEMOGLOBIN 26 pg (25-34); MEAN CORPUSCULAR HGB CONC 32 g/dL (32-36); MEAN CORPUSCULAR VOLUME 81 fL (80-99); MEAN PLATELET VOLUME 10.5 fL (9.0-12.2); MONOCYTES # (AUTO) 0.8 10^3/uL (0.0-1.0); MONOCYTES % (AUTO) 7 % (0-12); NEUTROPHILS # (AUTO) 9.8 10^3/uL (1.8-7.8); NEUTROPHILS % (AUTO) 79 % (42-75); PLATELET COUNT 210 10^3/uL (130-400); WHITE BLOOD COUNT 12.4 10^3/uL (4.3-11.0)
[2022-12-30] MEDS ORDERED: IBUPROFEN 800 MG TABLET PO ONE (06:54)
[2022-12-30] MEDS: IBUPROFEN 800 MG TABLET PO SCH ×3 (06:55→22:33)
[2022-12-30 08:26] VITALS: BP 96/55
--- NOTE | 2022-12-30 08:45 | Postpartum Progress Note ---
Post Op Post-operative Day #1 Subjective: Patient is without complaints. Ambulating, voiding after maria removed. Tolerating a regular diet without nausea or vomiting. Normal lochia. Pain is well controlled with oral pain medications. Passing flatus. breast feeding. [] Objective: VSS AF Physical Exam: General - Alert and oriented, no apparent distress Breast symmetrical no erythema edema or engorgement Abdomen - Soft, appropriately tender to palpation, non-distended, fundus firm at umbilicus Incision - clean, dry and intact; no erythema or induration, no drainage Extremities - no edema, negative Ritchie's bilaterally Assessment: [] post-operative day # 1, status post RLTCS Recovering well, hemodynamically stable Plan: Routine post-operative care. Encourage breast feeding. Encourage ambulation. VTE prophylaxis: SCDs. Ferrous sulfate supplementation. Plan for discharge [] Vitals - Labs Vital Signs - I&O Vital Signs Date Time Temp Pulse Resp B/P (MAP) Pulse Ox O2 Delivery O2 Flow Rate FiO2 12/30/22 04:54 36.2 57 18 110/68 (82) 97 Room Air 12/30/22 00:20 36.4 53 18 120/69 (86) 97 Room Air 12/29/22 20:37 36.6 58 18 110/69 (83) 97 Room Air 12/29/22 18:39 36.6 58 18 132/74 (93) 98 Room Air 12/29/22 15:16 36.9 69 18 125/72 (89) 97 Room Air 12/29/22 14:00 Room Air 12/29/22 13:50 36.1 18 112/74 (87) 98 Room Air 12/29/22 13:45 Room Air 12/29/22 13:35 36.5 18 103/64 (77) 100 Room Air 12/29/22 13:30 Room Air 12/29/22 13:20 36.0 18 110/65 (80) 98 Room Air 12/29/22 13:15 Room Air 12/29/22 13:05 36.4 18 106/47 (66) 98 Room Air 12/29/22 11:23 80 18 122/68 (86) 98 Room Air 12/29/22 11:21 36.7 74 18 97 Room Air I & O 12/30/22 07:00 Intake Total 1150 ml Output Total 2250 ml Balance -1100 ml Labs Laboratory Tests 12/29/22 10:55: White Blood Count 13.3H, Red Blood Count 4.21, Hemoglobin 11.0L, Hematocrit 33L, Mean Corpuscular Volume 79L, Mean Corpuscular Hemoglobin 26, Mean Corpuscular Hemoglobin Concent 33, Red Cell Distribution Width 13.6, Platelet Count 286, Mean Platelet Volume 10.3, Immature Granulocyte % (Auto) 1, Neutrophils (%) (Auto) 77H, Lymphocytes (%) (Auto) 17, Monocytes (%) (Auto) 4, Eosinophils (%) (Auto) 0, Basophils (%) (Auto) 0, Neutrophils # (Auto) 10.3H, Lymphocytes # (Auto) 2.3, Monocytes # (Auto) 0.6, Eosinophils # (Auto) 0.1, Basophils # (Auto) 0.0, Immature Granulocyte # (Auto) 0.1, Syphilis Total Antibody Negative 12/30/22 06:10: White Blood Count 12.4H, Red Blood Count 3.63L, Hemoglobin 9.3L, Hematocrit 29L, Mean Corpuscular Volume 81, Mean Corpuscular Hemoglobin 26, Mean Corpuscular Hemoglobin Concent 32, Red Cell Distribution Width 13.6, Platelet Count 210, Mean Platelet Volume 10.5, Immature Granulocyte % (Auto) 1, Neutrophils (%) (Auto) 79H, Lymphocytes (%) (Auto) 14, Monocytes (%) (Auto) 7, Eosinophils (%) (Auto) 0, Basophils (%) (Auto) 0, Neutrophils # (Auto) 9.8H, Lymphocytes # (Auto) 1.7, Monocytes # (Auto) 0.8, Eosinophils # (Auto) 0.1, Basophils # (Auto) 0.0, Immature Granulocyte # (Auto) 0.1 EDWIGE MEYERS DO Dec 30, 2022 08:45
[2022-12-30] MEDS: DOCUSATE SODIUM 100 MG CAPSULE PO SCH ×2 (13:45→21:19)
[2022-12-30 15:33] VITALS: BP 103/58
[2022-12-30 21:57] VITALS: BP 116/68
[2022-12-31] MEDS: ACETAMINOPHEN 500 MG TABLET PO PRN ×2 (00:11→08:47)
[2022-12-31] MEDS: oxyCODONE IMMEDIATE RELEASE 5 MG TABLET PO PRN ×3 (02:20→12:06)
[2022-12-31 02:45] VITALS: BP 123/37
[2022-12-31] MEDS: SIMETHICONE 80 MG CHEWABLE TABLET PO SCH (06:44)
[2022-12-31] MEDS: IBUPROFEN 800 MG TABLET PO SCH (06:45)
[2022-12-31] MEDS ORDERED: OXC5T PO (08:36)
--- NOTE | 2022-12-31 08:38 | Discharge Summary ---
Discharge Summary Hospital Course Problems Reviewed?: Yes Hospital Course Date of Admission: Dec 29, 2022 at 06:31 Admission Diagnosis : Family Physician/Provider: Janneth Cabrera MD Date of Discharge: 12/31/22 Discharge Diagnosis: Repeat low-transverse section status post repeat low-transverse section Hospital Course: Patient was admitted for a trial of labor after section however she changed her mind when her cervix was still only 1 cm. We then proceeded to do a repeat low-transverse section where she delivered a liveborn . She did very well in the /postoperative period her pain was well controlled and she was discharged home with pain medications and instructions on postop day #2. Labs and Pending Lab Test: Home Meds Active Reglan (Metoclopramide HCl) 10 Mg Tablet 10 Mg PO Q6H PRN Ferosul (Ferrous Sulfate) 325 Mg Tablet 325 Mg PO DAILY Ibu (Ibuprofen) 600 Mg Tablet 600 Mg PO Q6HR Docusate Sodium 100 Mg Capsule 100 Mg PO BID Reported Singulair (Montelukast Sodium) 10 Mg Tablet 10 Mg PO DAILY Zyrtec (Cetirizine HCl) 10 Mg Tablet 10 Mg PO DAILY Vitamins ( Vit W-Ca,Fe,FA(<1 mg)) 1 Each Tablet 1 Each PO DAILY Activity: Activity as Tolerated Driving Instructions: No Driving for 1 Week NO SMOKING: NO SMOKING Nothing Inside Vagina: No Douching, No [place], No Tampons Discharge Diet: Regular Diet Symptoms to Report to : Constipation(Persistant), Fever Over 101 Degrees F, Vaginal Bleeding Increase, Vaginal Discharge Foul For Any Problems or Questions: Contact Your Physician Infection Signs and Symptoms: Increased Redness, Foul Odor of Wound, Increased Drainage, Skin Itchy or Has a Rash, Increased Swelling, Temperature Above 101 F Operative Area Clean and Dry: Keep Incision Clean/Dry Stitches/[place]/Dermabond: Dermabond Discharge Physical Examination Allergies: Coded Allergies: latex (Verified Allergy, Unknown, Hives, 02/04/21) shrimp (Verified Allergy, Unknown, 10/31/19) Vitals & I&Os Vital Signs Date Time Temp Pulse Resp B/P (MAP) Pulse Ox O2 Delivery O2 Flow Rate FiO2 12/31/22 02:45 36.3 78 18 123/37 (65) 96 Room Air Copy Copies To 1: JANNETH CABRERA MD Discharge Summary Date of Admission Dec 29, 2022 at 06:31 Date of Discharge Discharge Date: Dec 31, 2022 Discharge Time: 08:00 Supervisory-Addendum Brief Verification & Attestation Participated in pt care: history, MDM, physical Personally performed: exam, history, MDM, supervision of care Care discussed with: other Procedures: n/a Results interpretation: Verified all documentation I personally saw and examined this patient. EDWIGE MEYERS DO Dec 31, 2022 08:38
--- NOTE | 2022-12-31 08:39 | Postpartum Progress Note ---
Post Op Post-operative Day #2 Subjective: Patient is without complaints. Ambulating, voiding after maria removed. Tolerating a regular diet without nausea or vomiting. Normal lochia. Pain is well controlled with oral pain medications. Passing flatus. Breast feeding. [] Objective: VSS AF Physical Exam: General - Alert and oriented, no apparent distress Abdomen - Soft, appropriately tender to palpation, non-distended, fundus firm at umbilicus Incision - clean, dry and intact; no erythema or induration, no drainage Extremities - no edema, negative Ritchie's bilaterally Assessment: [] post-operative day #2 status post RLTCS Recovering well, hemodynamically stable Plan: Routine post-operative care. Encourage breast feeding. Encourage ambulation. VTE prophylaxis: SCDs. Ferrous sulfate supplementation. Plan for discharge [] Vitals - Labs Vital Signs - I&O Vital Signs Date Time Temp Pulse Resp B/P (MAP) Pulse Ox O2 Delivery O2 Flow Rate FiO2 12/31/22 02:45 36.3 78 18 123/37 (65) 96 Room Air 12/30/22 21:57 36.3 64 18 116/68 (84) 97 Room Air 12/30/22 15:33 36.2 50 18 103/58 (73) 96 Room Air EDWIGE MEYERS DO Dec 31, 2022 08:39
[2022-12-31 08:43] VITALS: BP 114/70
[2022-12-31] MEDS: DOCUSATE SODIUM 100 MG CAPSULE PO SCH (08:46)
== END 2022-12-31 12:10 | disposition home or self-care (01) | DRG 788 ==
LOC: LDRP 06:31
PROVIDERS: ADMIT Obstetrics & Gynecology; ATTEND Obstetrics & Gynecology
PROC: 10D00Z1 Extraction of Products of Conception, Low, Open Approach (ICD-10-PCS; principal; 2022-12-29 12:14)
DX: O34.211 Maternal care for low transverse scar from previous cesarean delivery (principal); O99.824 Streptococcus B carrier state complicating childbirth; Z3A.39 39 weeks gestation of pregnancy; Z37.0 Single live birth
CPT/HCPCS: 36415; 85025; 86780; 86850; 86900; 86901; 94664